=== PATIENT | female | born 1960 | race Caucasian/White ===

== ENCOUNTER → 2017-10-28 09:27 | Outpatient (CLI) | payer OTHER, SELFPAY ==
--- NOTE | 2017-10-28 11:34 | RAD_ITS ---
STUDY: X-RAY - RIGHT FOOT CLINICAL: Female, 57 years old. Trauma, pain across the top of the foot TECHNIQUE: 3 view(s) of the foot. COMPARISON: None. FINDINGS: There is a plantar calcaneal spur. Normal visualized subtalar, talonavicular, calcaneocuboid, tarsal and tarsometatarsal articulations. Normal metatarsi. There is degenerative arthrosis of the metatarsophalangeal joint of the hallux with a hallux valgus deformity. Normal tibial and fibular sesamoid bones. Normal interphalangeal joint of the great toe. Normal phalanges of the great toe. Normal second through fifth metatarsophalangeal joints. Normal interphalangeal joints and phalanges of the lesser toes. The soft tissue structures are unremarkable. RAD/Foot min 3 Views IMPRESSION: No acute bony abnormality. Electronically Signed: Yannick Webb DO at 9:28 EDT Tel , Service support ,
== END ==
PROVIDERS: Family Provider Family Medicine; PCP Family Medicine; Visit Provider Family Medicine
DX: M79.671 Pain in right foot (principal)
CPT/HCPCS: 73630

== ENCOUNTER → 2019-05-19 08:36 | Outpatient (CLI) | payer OTHER, SELFPAY ==
[2019-02-02 16:05] VITALS: BMI 40.0
[2019-05-19 12:30] LABS: Absolute Lymphocyte Count 2.21 X10^3/uL (0.83-4.51); Absolute Neutrophil Count 3.3 X10^3/uL (2.0-7.7); Basophil# 0.02 X10^3/uL; Basophil% 0.3 % (0-1); Eosinophil# 0.15 X10^3/uL; Eosinophils% 2.4 % (0-5); Hematocrit 43.6 % (37-47); Hemoglobin 13.7 g/dL (12.0-15.0); Lymphocyte # 2.21 X10^3/ul (4.0); Lymphocyte % 35.8 % (19-41); Mean Corp Hgb Conc 31.4 g/dL (32-36); Mean Corpuscular Hgb 28.7 pg (27.0-32.0); Mean Corpuscular Volume 91.2 fL (81-99); Mean Platelet Vol. 9.6 fl (6.2-12.0); Monocyte# 0.53 X10^3/uL; Monocyte% 8.6 % (0-10); NRBC Flagged by Analyzer 0 % (0-5); Neutrophil # 3.26 X10^3/uL (2.7-7.7); Neutrophil % 52.7 % (47-70); Platelet Count 324 K/mm3 (150-450); RBC Distribution Width CV 13.1 % (11.6-14.6); RBC Distribution Width SD 43.7 fl (35.1-43.9); Red Blood Count 4.78 M/mm3 (4.2-5.4); White Blood Count 6.2 K/mm3 (4.4-11.0)
[2019-05-19 13:03] LABS: Anion Gap 5 (5-15); BUN 19 mg/dL (7-18); BUN/Creat Ratio 31.3 RATIO (10-20); Calcium,Total 8.8 mg/dL (8.5-10.1); Chloride 107 mmol/L (98-107); Cholesterol 222 mg/dL (200); Creatinine, Serum 0.61 mg/dL (0.55-1.02); EST Glomerular Filtration Rate 108 mL/min (>60); Est Glom Filt Rate - Afr Amer 130 mL/min (>60); Glucose 88 mg/dL (74-106); High Density Lipoprotein 66 mg/dL; Potassium 3.7 mmol/L (3.5-5.1); Sodium Level 140 mmol/L (136-145); Thyroid Stim Hormone (TSH) 1.92 uIU/mL (0.358-3.74); Triglycerides 99 mg/dL; Very Low Density Lipoprotein 20 mg/dL (5-40)
[2019-05-22 10:25] LABS: LDL, Direct 120295 139 mg/dL (0-99)
== END ==
PROVIDERS: Family Provider Family Medicine; PCP Family Medicine; Visit Provider Family Medicine
DX: I49.3 Ventricular premature depolarization (principal); F43.22 Adjustment disorder with anxiety; E78.1 Pure hyperglyceridemia
CPT/HCPCS: 36415; 80048; 80061; 83721; 84443; 85025

== ENCOUNTER → 2019-06-13 11:42 | Outpatient (CLI) | payer OTHER, SELFPAY ==
[2019-02-02 16:05] VITALS: BMI 40.0
[2019-06-13 12:35] LABS: Absolute Lymphocyte Count 2.76 X10^3/uL (0.83-4.51); Absolute Neutrophil Count 3.9 X10^3/uL (2.0-7.7); Basophil# 0.01 X10^3/uL; Basophil% 0.1 % (0-1); Eosinophil# 0.27 X10^3/uL; Eosinophils% 3.5 % (0-5); Hematocrit 41.2 % (37-47); Hemoglobin 13.2 g/dL (12.0-15.0); Lymphocyte # 2.76 X10^3/ul (4.0); Lymphocyte % 36.3 % (19-41); Mean Corpuscular Hgb 28.8 pg (27.0-32.0); Mean Platelet Vol. 9.6 fl (6.2-12.0); Monocyte# 0.63 X10^3/uL; Monocyte% 8.3 % (0-10); NRBC Flagged by Analyzer 0 % (0-5); Neutrophil # 3.92 X10^3/uL (2.7-7.7); Neutrophil % 51.5 % (47-70); Platelet Count 333 K/mm3 (150-450); RBC Distribution Width CV 13.1 % (11.6-14.6); RBC Distribution Width SD 42.8 fl (35.1-43.9); Red Blood Count 4.58 M/mm3 (4.2-5.4); White Blood Count 7.6 K/mm3 (4.4-11.0)
[2019-06-13 13:13] LABS: AST(SGOT) 16 U/L (15-37); Alanine Aminotransfer ALT/SGPT 39 U/L (13-56); Albumin, Serum 3.6 g/dL (3.2-5.0); Alkaline Phosphatase 88 U/L (45-117); Anion Gap 6 (5-15); BUN 19 mg/dL (7-18); BUN/Creat Ratio 34.8 RATIO (10-20); Calcium,Total 8.7 mg/dL (8.5-10.1); Chloride 107 mmol/L (98-107); Creatinine, Serum 0.55 mg/dL (0.55-1.02); EST Glomerular Filtration Rate 122 mL/min (>60); Est Glom Filt Rate - Afr Amer 147 mL/min (>60); Globulin 3.5 g/dL (2.2-4.2); Glucose 82 mg/dL (74-106); Lipase 110 U/L (73-393); Potassium 3.7 mmol/L (3.5-5.1); Protein, Total 7.1 g/dL (6.4-8.2); Sodium Level 138 mmol/L (136-145)
== END ==
PROVIDERS: Family Provider Family Medicine; PCP Family Medicine; Visit Provider Family Medicine
DX: R19.5 Other fecal abnormalities (principal); B34.9 Viral infection, unspecified; R10.13 Epigastric pain
CPT/HCPCS: 36415; 80053; 83690; 85025

== ENCOUNTER → 2019-06-19 16:35 | Outpatient (CLI) | payer OTHER, SELFPAY ==
[2019-02-02 16:05] VITALS: BMI 40.0
--- NOTE | 2019-06-19 16:38 | BI_ITS ---
MAMMOGRAPHY - BILATERAL SCREENING 3-D TOMOSYNTHESIS REASON FOR EXAM: Female, 59 years old. Routine annual screening examination. PERTINENT HISTORY: No significant family history. TECHNIQUE: 2-D mammograms and 3-D Tomosynthesis of the breast (s) were performed. CAD was performed. COMPARISON: None. FINDINGS: The breast composition is heterogeneously dense that can obscure small breast masses. Scattered benign calcifications are seen. No dense spiculated masses or suspicious microcalcifications are identified. No architectural distortion is identified. There is no skin thickening or retraction. Lymph nodes in both axillae. BI/SCREEN MAMM (CAD) W/WU BILAT IMPRESSION: No mammographic signs of malignancy. Routine yearly mammograms recommended. ASSESSMENT CATEGORY: BIRADS Category 2: Benign. A letter regarding these results will be sent to the patient by the facility within 30 days. FOLLOW UP RECOMMENDATION: Yearly follow up mammogram recommended. (A) Approximately 10% of breast cancers are not detected by mammography. A normal mammogram should not delay biopsy of a clinically suspicious abnormality. Electronically Signed: Miguel A Sue MD at 17:52 EST , Service support ,
== END ==
PROVIDERS: Family Provider Family Medicine; PCP Family Medicine; Referring Provider Family Medicine; Visit Provider Family Medicine
DX: Z12.31 Encounter for screening mammogram for malignant neoplasm of breast (principal)
CPT/HCPCS: 77063; 77067

== ENCOUNTER → 2019-09-29 | Outpatient (CLI) | payer OTHER, SELFPAY ==
[2019-09-29 08:34] VITALS: BMI 40.0
--- NOTE | 2019-09-29 08:42 | RAD_ITS ---
HISTORY: BAKERS CYST, PAIN EXAM: Left knee COMPARISON: None FINDINGS: # of images incl. paperwork: 4 Arthritis is present throughout the left knee. There is joint space loss with osteophytes. Is joint space loss is greatest within the medial weightbearing compartment of the knee. Osteophytes are greatest at the patellofemoral portion of the joint. A knee effusion is present. Due to some ill-defined density posterior to the knee I perceived that there is a Burrell's cyst. I estimate the Burrell's cyst at 6.8 x 4.3 cm. No acute fracture RAD/Knee 4 or More Views IMPRESSION: Tricompartment knee osteoarthritis. Probable 6.8 x 4.3 cm Burrell cyst. at 2703 Reported and signed by: Adnerson Aguirre MD Electronically Signed: Anderson Aguirre MD at 5:51 EST Tel , Service support ,
== END | disposition home or self-care (01) ==
LOC: HPRAD 08:42
PROVIDERS: PCP Family Medicine; Referring Provider Orthopaedic Surgery; Visit Provider Orthopaedic Surgery
DX: M25.562 Pain in left knee (principal)
CPT/HCPCS: 73564

== ENCOUNTER → 2021-05-20 11:10 | Outpatient (CLI) | payer OTHER, SELFPAY ==
--- NOTE | 2021-05-20 11:15 | RAD_ITS ---
STUDY: X-RAY - RIGHT FOOT CLINICAL: Medial right foot pain, no specific injury. TECHNIQUE: 3 view(s) of the foot. COMPARISON: Radiographs 10/28/2017. FINDINGS: There is a plantar calcaneal enthesophyte. Otherwise, unremarkable talus, calcaneus, and tarsal bones. Normal visualized subtalar, talonavicular, calcaneocuboid, tarsal and tarsometatarsal articulations. Normal metatarsi. There is joint space narrowing of the metatarsophalangeal joint of the great toe and cystic change of the medial aspect of the first metatarsal head. There is hallux valgus deformity. Normal tibial and fibular sesamoid bones. Normal interphalangeal joint of the great toe. Normal phalanges of the great toe. Normal second through fifth metatarsophalangeal joints. Normal interphalangeal joints and phalanges of the lesser toes. The soft tissue structures are unremarkable. RAD/Foot min 3 Views IMPRESSION: Arthrosis of the first metatarsophalangeal joint. Hallux valgus deformity. Plantar calcaneal enthesophyte. Electronically Signed: Mark Lerner MD at 13:52 EDT Tel , Service support ,
== END ==
PROVIDERS: PCP Family Medicine; Referring Provider Podiatrist; Visit Provider Podiatrist
DX: M19.071 Primary osteoarthritis, right ankle and foot (principal)
CPT/HCPCS: 73630

== ENCOUNTER → 2021-06-03 16:13 | Outpatient (CLI) | payer OTHER, SELFPAY ==
--- NOTE | 2021-06-03 16:15 | BI_ITS ---
MAMMOGRAPHY - BILATERAL SCREENING REASON FOR EXAM: Female, 61 years old. Routine annual screening examination. PERTINENT HISTORY: Non-contributory. TECHNIQUE: Digital bilateral breast wu (3D mammographic acquisition) in the CC and MLO projections. 2-D mediolateral oblique (MLO) and craniocaudad (CC) views of both breasts were obtained. CAD: Full Field Digital Mammography with Computer Added Detection was performed. COMPARISON: Comparison is made with prior study dated 06/19/2019. FINDINGS: Breast Composition: The breasts are heterogeneously dense, which may obscure small masses. There are no dominant masses or suspicious calcifications. No other significant abnormalities are identified. There has been no significant change since the prior study. BI/SCRN MAMM (CAD)W/WU BILAT IMPRESSION: Stable bilateral screening mammogram. Yearly follow-up mammogram recommended. (A) ASSESSMENT CATEGORY: BIRADS Category 1: Negative. A letter regarding these results will be sent to the patient by the facility within 30 days. Approximately 10% of breast cancers are not detected by mammography. A normal mammogram should not delay biopsy of a clinically suspicious abnormality. [id number] Electronically Signed: Cade Wooten MD at 8:24 EST , Service support ,
== END ==
PROVIDERS: PCP Family Medicine; Referring Provider Advanced Practice Midwife; Visit Provider Advanced Practice Midwife
DX: Z12.31 Encounter for screening mammogram for malignant neoplasm of breast (principal)
CPT/HCPCS: 77063; 77067

== ENCOUNTER 2021-06-28 14:24 | Outpatient (CLI) | payer OTHER, SELFPAY ==
[2021-06-28 14:53] VITALS: BP 141/78; PULSE 95; RESP 16; TEMP 36.8; O2SAT 97; BMI 39.1
[2021-06-28 15:44] VITALS: BP 112/73; PULSE 92; RESP 16; TEMP 37; O2SAT 98
[2021-06-28 16:34] VITALS: BP 128/66; RESP 16; TEMP 37.6; O2SAT 98
== END 2021-06-28 16:45 | disposition home or self-care (01) ==
LOC: MS3OUT 14:29 → MS3 14:29
PROVIDERS: PCP Family Medicine; Referring Provider Nurse Practitioner Acute Care; Visit Provider Nurse Practitioner Acute Care
DX: Z23 Encounter for immunization (principal); U07.1 COVID-19
CPT/HCPCS: J7050; M0245; Q0245

== ENCOUNTER 2021-11-03 16:13 | Emergency (ER) | payer OTHER, SELFPAY ==
[2021-11-03 16:13] VITALS: BP 143/100; PULSE 106; RESP 18; TEMP 36.1; O2SAT 96; BMI 41.9
--- NOTE | 2021-11-03 16:47 | ED.VIS.BACK ---
HPI History of Present Illness Chief Complaint: Back Informant: patient Onset/Context/Timing Onset: Days (10) Context: Gradual Onset Timing: Intermittent Quality: Sharp Location: Lumbar, Buttock and Right Leg Worsened by: improves with Ambulation Relieved by: Nothing Associated Symptoms Associated Symptoms: Numbness, Tingling and Radiation to Right Leg; Negative for Radiation to Left Leg, Fever, Abdominal Pain, Dysuria, Unable to Ambulate, Unable to Transfer, Urinary Retention, Urinary Incontinence, Constipation and Fecal Incontinence Narrative Narrative: Patient presents with low back pain that has been getting worse over the past 10 days. Patient denies any injury. Patient states her pain is worse with standing and ambulation. Patient describes her pain as sharp. Patient pain radiates down her right lower extremity. Patient admits to some numbness and tingling in her right lower extremity. Patient states nothing seems to help her pain. Patient denies any bowel or bladder changes. Patient denies any saddle anesthesia. [facility] Medical History Anxiety Degenerative disc disease, lumbar Depression Fatigue GERD (gastroesophageal reflux disease) Near syncope Obesity Osteoarthritis Premature ventricular beat Supraventricular tachycardia UTI (urinary tract infection) Home Medications naproxen sodium 220 mg capsule 220 mg PO Q12H 07/21/17 [History Last Taken Unknown] paroxetine HCl 20 mg tablet 20 mg PO DAILY 02/02/19 [History Last Taken Unknown] metoprolol succinate 25 mg tablet,extended release 24 hr 25 mg PO QDAY #90 tab 08/09/19 [Rx Last Taken Unknown] omeprazole 20 mg capsule,delayed release 20 mg PO DAILY 03/12/21 [History Last Taken Unknown] hydrocodone-acetaminophen 1 tab PO Q6H PRN PRN 3 Days #10 tablet 11/03/21 [Rx Last Taken Unknown] Allergy/AdvReac Type Severity Reaction Status Date / Time No Known Allergies Allergy Verified 11/03/21 16:15 Family History Father CAD (coronary artery disease) ischemic cardiomyopathy Surgical History H/O excision of ganglion cyst History of History of dilatation and curettage History of total right knee replacement (~06/2011) Social History Smoking Status: Former smoker alcohol intake: current alcohol intake frequency: holidays/special occasions only ROS ROS ED Constitutional Constitutional ED: Denies chills or fever(s) Eyes Eyes: Denies blurry vision or change in vision ENT ENT ED: Denies rhinorrhea or sore throat Cardiovascular Cardiovascular: Denies chest pain or palpitations Respiratory/Chest Respiratory/Chest: Denies cough or dyspnea Gastrointestinal Gastrointestinal: Reports nausea; Denies vomiting Genitourinary Genitourinary ED: Denies dysuria or hematuria Musculoskeletal Musculoskeletal: Reports back pain; Denies neck pain Integumentary Denies abscess or rash Neurologic Neurologic: Denies headache(s) or weakness Allergic/Immunologic Allergic/Immunologic ED: Denies mouth swelling or urticaria EXAM Physical Exam Const Vital Signs: 11/03/21 16:13 11/03/21 18:22 Temperature 97 F L Temperature Source Temporal Pulse Rate 106 H 71 Respiratory Rate 18 16 Blood Pressure 143/100 H 138/67 H Blood Pressure Mean 114 90 Pulse Ox 96 94 Oxygen Delivery Method Room Air Room Air Positive well nourished and well developed General Appearance ED: well developed Neck supple and no JVD GI Palpation: soft Back/Spine Back/Spine Narrative: There is tenderness to palpation over the lower lumbar spine and lumbosacral junction. There is no edema or ecchymosis. There is no bony crepitance or step-off. There is good range of motion. There is no tenderness over the upper lumbar spine or thoracic spine. Extremity normal to inspection General Extremety ED: Negative for edema or tenderness General Extremity: Negative for edema Neuro oriented x3, CN's II-XII intact bilaterally and no sensory deficits noted Sensorium / Orientation: alert Motor Exam: strength 5/5 throughout Deep Tendon Reflexes: Rt Patellar (L4): 1+, Lt Patellar (L4): 1+, Rt Ankle (S1): 1+ and Lt Ankle (S1): 1+ Deep Tendon Reflexes Back: Rt Patellar (L4): 1+, Lt Patellar (L4): 1+, Rt Ankle (S1): 1+ and Lt Ankle (S1): 1+ Psych mental status grossly normal Skin no rashes or lesions noted MDM MDM MDM Narrative Medical decision making narrative: X-rays of the lumbar spine were obtained. There are 3 views. On my interpretation, there are some degenerative changes noted. There is a grade 1 spondylolisthesis of L4 on L5. There is some disc space narrowing of L3-L4, L4-L5, and L2-L3. There is no acute fracture. Radiologist also interpreted the x-rays and agrees. Patient was given a dose of [place] here. Patient was given a prescription for a short course of [place]. Patient was instructed use ice to the area. Patient was instructed to follow-up with her primary care physician in 5 to 7 days. Patient understood and was agreeable with the plan. All questions were answered. Radiography X-Ray: LS SPine, Read by ED Physician, Read by Radiologist, No Fracture, DJD, Spurring, Osteophytes and Spondylolisthesis Diagnostic Testing: Clinical Impression(s) from Imaging Studies Lumbar Spine X-Ray 11/03/21 17:05 IMPRESSION: 1. No vertebral body fractures. 2. Presence of a 9 mm forward subluxation of L4 with respect to L5. 3. Marked narrowing of the L3-4 and L4-5 intervertebral disc spaces and mild narrowing of the L2-3 intervertebral disc space. 4. Moderate anterior osteophytic degenerative changes of the entire lumbar spine. 5. No evidence of other significant abnormalities. Electronically Signed: Jameson Gustafson MD at 17:51 EDT , Discharge Plan Triage Chief Complaint: Back ED Provider: Bryant Pinto Dx/Rx/DC Orders Clinical Impression: Acute lumbosacral myofascial strain, Radiculopathy Instructions: ED Back Sprain/Strain, ED Back and Neck Pain, General Prescriptions: New hydrocodone-acetaminophen [hydrocodone-acetaminophen] 1 TABLET tablet 1 tab PO Q6H PRN PRN (Reason: Pain) 3 Days Qty: 10 RF: 0 No Action naproxen sodium [Aleve] 220 mg capsule 220 mg PO Q12H RF: 0 paroxetine HCl 20 mg tablet 20 mg PO DAILY RF: 0 omeprazole 20 mg capsule,delayed release(DR/EC) 20 mg PO DAILY RF: 0 metoprolol succinate [Toprol XL] 25 mg tablet extended release 24 hr 25 mg PO QDAY Qty: 90 RF: 3 Primary Care Provider: Josias Mckinney Referrals: Josias Mckinney MD [Primary Care Provider] - 5-7 Days Disposition Disposition: Home, Self Care
[2021-11-03] MEDS: HYDROcodone Bitartrate/Apap 5/325 Tablet PO (17:01)
--- NOTE | 2021-11-03 17:05 | RAD_ITS ---
STUDY: LUMBOSACRAL SPINE X-RAY SERIES--3 VIEWS OF 1712 HOURS ON 11/03/2021 REASON FOR EXAM: 61-year-old female with injury and pain of the lumbar spine. TECHNIQUE: 3 view(s) of the lumbar spine were obtained. COMPARISON: None FINDINGS: No vertebral body fractures. 9 mm forward subluxation of L4 with respect to L5. Marked narrowing of the L3-4 and L4-5 intervertebral disc spaces. Mild narrowing of the L2-3 intervertebral disc space. Moderate anterior osteophytic degenerative changes of the entire lumbar spine. Intact pedicles, processes and facets. Normal sacrum and coccyx. RAD/Lumbar Spine 2 or 3 Views IMPRESSION: 1. No vertebral body fractures. 2. Presence of a 9 mm forward subluxation of L4 with respect to L5. 3. Marked narrowing of the L3-4 and L4-5 intervertebral disc spaces and mild narrowing of the L2-3 intervertebral disc space. 4. Moderate anterior osteophytic degenerative changes of the entire lumbar spine. 5. No evidence of other significant abnormalities. Electronically Signed: Jameson Gustafson MD at 17:51 EDT ,
[2021-11-03 18:22] VITALS: BP 138/67; PULSE 71; RESP 16; O2SAT 94
== END 2021-11-03 18:51 | disposition home or self-care (01) ==
PROVIDERS: Emergency Provider Emergency Medicine; PCP Family Medicine; Visit Provider Emergency Medicine
DX: S39.012A Strain of muscle, fascia and tendon of lower back, initial encounter (principal); F41.9 Anxiety disorder, unspecified; F32.A Depression, unspecified; K21.9 Gastro-esophageal reflux disease without esophagitis; M51.36 Other intervertebral disc degeneration, lumbar region; M43.16 Spondylolisthesis, lumbar region; E66.9 Obesity, unspecified; Z79.899 Other long term (current) drug therapy; Z87.891 Personal history of nicotine dependence
CPT/HCPCS: 72100; 99283

== ENCOUNTER 2021-11-08 13:19 | Emergency (ER) | payer OTHER, SELFPAY ==
[2021-11-08 13:20] VITALS: BP 193/99; PULSE 111; RESP 20; TEMP 37.1; O2SAT 93; BMI 41.7
[2021-11-08 13:31] VITALS: BP 161/82; PULSE 99; RESP 18; O2SAT 97
--- NOTE | 2021-11-08 13:47 | EDS_ITS ---
HPI History of Present Illness Chief Complaint: Back Informant: patient Narrative Narrative: 61-year-old female presenting to the emergency department chief complaint of back pain. Patient was seen in the emergency department 5 days ago. She is awaiting a call from a spine surgeon at [facility] in [place]. Unfortunately she is out of her pain medication and she tried to get to her doctor's office but because of the they were closed. Patient notes that she has had pain for approximately 2 weeks. She denies any radicular symptoms. She saw a chiropractor yesterday. No fevers recent back injections or radicular symptoms. No bowel or bladder dysfunction. She is currently wearing a TENS unit [facility] Medical History Anxiety Degenerative disc disease, lumbar Depression Fatigue GERD (gastroesophageal reflux disease) Near syncope Obesity Osteoarthritis Premature ventricular beat Supraventricular tachycardia UTI (urinary tract infection) Home Medications naproxen sodium 220 mg capsule 220 mg PO Q12H 07/21/17 [History Last Taken Unknown] paroxetine HCl 20 mg tablet 20 mg PO DAILY 02/02/19 [History Last Taken Unknown] metoprolol succinate 25 mg tablet,extended release 24 hr 25 mg PO QDAY #90 tab 08/09/19 [Rx Last Taken Unknown] omeprazole 20 mg capsule,delayed release 20 mg PO DAILY 03/12/21 [History Last Taken Unknown] hydrocodone-acetaminophen 1 tab PO Q6H PRN PRN 3 Days #10 tablet 11/03/21 [Rx Last Taken Unknown] diazepam 5 mg PO Q8 PRN #10 tab 11/08/21 [Rx Last Taken Unknown] hydrocodone-acetaminophen 1 tab PO Q6H PRN PRN 3 Days #12 tablet 11/08/21 [Rx Last Taken Unknown] prednisone 60 mg PO DAILY #15 tablet 11/08/21 [Rx Last Taken Unknown] Allergy/AdvReac Type Severity Reaction Status Date / Time No Known Allergies Allergy Verified 11/08/21 13:20 Family History Father CAD (coronary artery disease) ischemic cardiomyopathy Surgical History H/O excision of ganglion cyst History of History of dilatation and curettage History of total right knee replacement (~06/2011) Social History Smoking Status: Former smoker alcohol intake: current alcohol intake frequency: holidays/special occasions only ROS ROS ED Constitutional Constitutional ED: Denies chills, fever(s) or weight loss Eyes Eyes: Denies change in vision or diplopia ENT ENT ED: Denies ear pain, rhinorrhea or sore throat Cardiovascular Cardiovascular: Denies chest pain, orthopnea, palpitations or racing heartbeat Respiratory/Chest Respiratory/Chest: Denies cough, dyspnea or orthopnea Gastrointestinal Gastrointestinal: Denies abdominal pain, diarrhea, nausea or vomiting Genitourinary Genitourinary ED: Denies dysuria, hematuria or urinary frequency Musculoskeletal Musculoskeletal: Reports back pain; Denies arthralgias or myalgias Integumentary Denies abscess or rash Neurologic Neurologic: Denies headache(s) or weakness Psychiatric Psychiatric: Denies anxiety, depression, suicidal ideation or suicidal thoughts Endocrine Endocrinology: Denies polydipsia, polyphagia or polyuria Allergic/Immunologic Allergic/Immunologic ED: Denies mouth swelling, tongue swelling or urticaria EXAM Physical Exam Const Vital Signs: 11/08/21 13:20 11/08/21 13:31 Temperature 98.8 F Temperature Source Oral Pulse Rate 111 H 99 Respiratory Rate 20 H 18 Blood Pressure 193/99 H 161/82 H Blood Pressure Mean 130 108 Pulse Ox 93 97 Oxygen Delivery Method Room Air Room Air Positive well nourished, well developed and obese General Appearance ED: well developed Nutritional Appearance: obese HEENT Reports normocephalic, head/scalp atraumatic, TM's clear and moist mucous membranes Negative for trauma Tympanic Membrane ED: Yes TM's clear Eyes PERRL and EOMs intact bilaterally Neck no lymphadenopathy, supple and no JVD Resp normal respiratory effort and clear to auscultation bilaterally Cardio regular rate, regular rhythm and no murmurs GI normal to inspection, nondistended, normoactive bowel sounds and non-tender Palpation: soft Back/Spine normal ROM Back/Spine Narrative: Tender palpation of bilateral SI joints. There are no overlying tissue texture changes to suggest infectious etiology. Extremity normal to inspection General Extremety ED: Negative for edema General Extremity: Negative for edema Neuro oriented x3 and CN's II-XII intact bilaterally Sensorium / Orientation: alert Motor Exam: strength 5/5 throughout Psych mental status grossly normal Mood & Affect: Negative for depressed or tearful Skin no rashes or lesions noted and no wounds MDM MDM MDM Narrative Medical decision making narrative: I will write for the patient to have [place] Valium and prednisone. She is not to take the [place] and the Valium together and she notes understanding. Return if worsening or concerns Discharge Plan Triage Chief Complaint: Back ED Provider: Antony Lawton Dx/Rx/DC Orders Clinical Impression: Acute lumbosacral myofascial strain Instructions: ED Back Spasm, No Trauma Prescriptions: New hydrocodone-acetaminophen [hydrocodone-acetaminophen] 1 TABLET tablet 1 tab PO Q6H PRN PRN (Reason: Pain) 3 Days Qty: 12 RF: 0 prednisone 20 MG tablet 60 mg PO DAILY Qty: 15 RF: 0 diazepam [diazepam] 5 MG tablet 5 mg PO Q8 PRN (Reason: Muscle Spasm) Qty: 10 RF: 0 No Action naproxen sodium [Aleve] 220 mg capsule 220 mg PO Q12H RF: 0 paroxetine HCl 20 mg tablet 20 mg PO DAILY RF: 0 omeprazole 20 mg capsule,delayed release(DR/EC) 20 mg PO DAILY RF: 0 hydrocodone-acetaminophen [hydrocodone-acetaminophen] 1 TABLET tablet 1 tab PO Q6H PRN PRN (Reason: Pain) 3 Days Qty: 10 RF: 0 metoprolol succinate [Toprol XL] 25 mg tablet extended release 24 hr 25 mg PO QDAY Qty: 90 RF: 3 Primary Care Provider: Josias Mckinney Referrals: Josias Mckinney MD [Primary Care Provider] - As Needed Disposition Disposition: Home, Self Care
== END 2021-11-08 14:05 | disposition home or self-care (01) ==
LOC: ED 13:55
PROVIDERS: Emergency Provider Emergency Medicine; PCP Family Medicine; Visit Provider Emergency Medicine
DX: S39.012A Strain of muscle, fascia and tendon of lower back, initial encounter (principal); Z68.41 Body mass index [BMI] 40.0-44.9, adult; Z87.891 Personal history of nicotine dependence; M51.36 Other intervertebral disc degeneration, lumbar region; X58.XXXA Exposure to other specified factors, initial encounter; Y93.9 Activity, unspecified; Y99.9 Unspecified external cause status; Y92.9 Unspecified place or not applicable; M19.90 Unspecified osteoarthritis, unspecified site; K21.9 Gastro-esophageal reflux disease without esophagitis; Z79.899 Other long term (current) drug therapy; E66.9 Obesity, unspecified
CPT/HCPCS: 99282

== ENCOUNTER → 2021-12-12 | Outpatient (CLI) | payer OTHER, SELFPAY | END | disposition home or self-care (01) | PROVIDERS: PCP Family Medicine; Visit Provider Family Medicine | DX: R39.15 Urgency of urination (principal) | CPT/HCPCS: 87086; 87088; 87186 ==

== ENCOUNTER 2022-03-16 17:00 | Outpatient (RCR) | payer OTHER, SELFPAY ==
--- NOTE | 2021-12-29 11:03 | HP.PTEVAL ---
Patient's Visit Information MIK WHITE is a 61 year old F referred to Physical Therapy by RONALD Brenner with a diagnosis of Laminectomy L3,L4,L5; fusion L4-L5. Date of Evaluation: 12/29/21 Physical Therapist: Joe Pepe DPT - Visit Plan Frequency: 2-3x /Week Duration: 4-6 Weeks Plan: Start with neutral spine core stability exercises. Wean from brace as tolerated. In 3 weeks start to ease into ROM as tolerated. - Subjective Pt. is here today for her initial evaluation with diagnosis of Laminectomy, L3, L4, L5; transforaminal interbody fusion from the left L4-L5. DOS: 11/27/21. Pt. reports having back pain for a few months and was doing chiro, pain meds, massage and having no relief. She started to develop cauda equina syndrome and ultimately did surgery. She reports feeling much better. She arrives using small quad can and wearing her abdominal brace. She is back to walking and driving, but not back to work. She is to follow up with physician in January. Pt. denies N/T in either LE. No pain in saddle region, no changes in B/B. Pt. is sleeping well. She is back to walking at home and lightly in community. 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 Pt. is hopeful to increase her tolerated all daily activities and progress back to work. - Pain lumbar spine Pain Intensity (Out of 10): 1 Pain Intensity Range: 0, 3 - Objective POSTURE: pt. has decent posture in stance, slight FH and rounded shoulders. Pt. has normal lumbar lordosis. PALPATION: Pt. has no pain with palpation of lumbar spine. Pt. has normal healing incision, No signs of infection. NEURO: Pt. has normal sensation throughout BLEs. Pt. has normal bilateral Achilles and Patellar DTR. ROM: Lumbar spine: flexion mod loss, exten mod loss, SB mod loss bilat, rotation mod loss bilat. Did not force ROM, just wanted to see ROM that she tolerated. pt. has normal B hip ROM. Tight HS and tight hip flexors bilat. MMT: RLE: ankle 5/5 throughout; knee: ext 5-/5, flexon 5-/5; hip 4/5 throughout. LLE: RLE: ankle 5/5 throughout; knee: ext 5-/5, flexon 5-/5; hip 4/5 throughout. GAIT: Pt. has decent gait pattern with quad cane, but does not use much. No pain noted. Slight lateral hip translation. - Balance/Special Test Scores Oswestry Low Back Score: 15 - Goals Goal 1:: LTG: Pt. to be I with HEP. Goal Time Frame: 4-6 Weeks Goal 2:: STG: Pt. to sleep throughout the night without increase in symptoms Goal Time Frame: 2-4 Weeks Goal 3:: STG: Pt. to wean from brace without increase in symptoms. Goal Time Frame: 2-4 Weeks Goal 4:: LTG: Pt. to have increased core strength to fair in order to reduce stress to lumbar spine. Goal Time Frame: 4-6 Weeks Goal 5:: LTG: Pt. to walk unlimited distances without increase in lumbar spine pain. Goal Time Frame: 4-6 Weeks - Rehabilitation Potential Physical Therapy Diagnosis: Pt. has signs and symptoms consistent with Laminectomy L3,L4,L5; fusion L4-L5. Pt. has subsequent hypomobility, core weakness and difficulty with ADLs. Pt. would benefit from PT to address the above limitations progressing back to all work and recreational activities without limitations. Rehabilitation Potential: Excellent - Anticipated Interventions Patient/Client Instruction: Educate patient on: Condition, Plan of Care, Risk Factors, Benefits of Fitness Program For the Purpose of:: To facilitate caregiver knowledge, To improve self management, To prevent re-injury, To improve ability to perform tasks related to life management, To improve tolerance to ADL's Therapeutic Exercise to Include: Strength training, Power training, Endurance training, Balance training, Body mechanics, Postural training, Flexibilty training, Gait and locomotor training, Passive ROM, Active ROM, Dynamic Lumbar Stabilization For the Purpose of:: To decrease pain, To decrease swelling/inflammation, To increase ROM, To improve nutrient delivery to tissue, To increase oxygenation perfusion, To improve health of tissue, To decrease soft tissue restriction, To increase flexibility/ROM Thank you for the opportunity to evaluate your patient. For Medicare and Medicare HMO plans, please review the plan of care and approve it. It will need to be FAXED BACK to us at [phone] for Medicare purposes. For Medicare only, by signing this I certify the plan of care. Please let me know if there are questions or concerns regarding this plan of care. Physician Signature: Date:
--- NOTE | 2022-02-13 06:20 | HP.PTREVAL ---
Linda Hathaway, LY-C, It has been my pleasure to treat MIK WHITE over the last 17 visits for Laminectomy L3,L4,L5; fusion L4-L5 (November 28). Please see the progress note below for an update on the physical therapy plan of care! Subjective: Pt. is overall doing well. She reports brianna 70% better overall. She denies pain. She did start back to work with good tolerance thus far. Objective/Function: ROM: LUMBAR SPINE: flexion min loss NE, SB min loss bilat NE, rotation min loss bilat nE. MMT: Pt. had good strength throughout her core 4/5, BLEs 4+/5 throughout without increase in symptoms. GAIT: She ambulates well, but does have increased lateral hip sway, but is otherwise doing well. STAIRS: reciprocal pattern, but does bother L knee especially with descending. Overall doing well. I would lik her to continue with core stability exercises and progressing to functional strengthening as she has a fairly active job and I want to wean her back into this. Plan Plan: COnt. with PT x2 per week for 3-4 weeks. Progress functional LE and core strengthening to allow for increased stability/tolerance to work activities. Balance/Gait/Functional tests - Balance/Special Test Scores Oswestry Low Back Score: 8 Goals Goal 1:: LTG: Pt. to be I with HEP. Goal Time Frame: 4-6 Weeks Goal Progress: Progressing Goal 2:: STG: Pt. to sleep throughout the night without increase in symptoms Goal Time Frame: 2-4 Weeks Goal Progress: Goal Met Goal 3:: STG: Pt. to wean from brace without increase in symptoms. Goal Time Frame: 2-4 Weeks Goal Progress: Goal Met Goal 4:: LTG: Pt. to have increased core strength to fair in order to reduce stress to lumbar spine. Goal Time Frame: 4-6 Weeks Goal Progress: Progressing Goal 5:: LTG: Pt. to walk unlimited distances without increase in lumbar spine pain. Goal Time Frame: 4-6 Weeks Goal Progress: Progressing Anticipated Interventions Patient/Client Instruction: Educate patient on: Condition, Plan of Care, Risk Factors, Benefits of Fitness Program For the Purpose of:: To facilitate caregiver knowledge, To improve self management, To prevent re-injury, To improve ability to perform tasks related to life management, To improve tolerance to ADL's Therapeutic Exercise to Include: Strength training, Power training, Endurance training, Balance training, Body mechanics, Postural training, Flexibilty training, Gait and locomotor training, Passive ROM, Active ROM, Dynamic Lumbar Stabilization For the Purpose of:: To decrease pain, To decrease swelling/inflammation, To increase ROM, To improve nutrient delivery to tissue, To increase oxygenation perfusion, To improve health of tissue, To decrease soft tissue restriction, To increase flexibility/ROM Please do not hesitate to contact me at [phone] by phone or if you have questions or concerns regarding this new plan of care! Sincerely, Joe Pepe DPT
--- NOTE | 2022-03-18 10:06 | HP.PTDCSUM_ITS ---
It has been my pleasure to treat MIK WHITE referred by RONALD Brenner, with the diagnosis of Laminectomy L3,L4,L5; fusion L4-L5 (November 28) for a total of 23 visit(s). Discharge Date: 03/16/22 Please see the following information for a summary of their discharge status. Subjective: Pt. reports being 95% better overall. She reports no issues with her back. She is tolerating all work activities well without issues. Pt. pleased. lumbar spine Pain Intensity (Out of 10): 0 % Improvement: 95 Objective/Function: ROM: Lumbar spine: flexion nil/min loss NE, ext nil/min loss NE, rotation nil loss NE, SB nil loss NE. NO pain noted with lumbar ROM. MMT: 5/5 throughout BLEs, core fair. No pain with resting. Pt. has normal sensation in BLEs, normal DTR of BLEs. GAIT: pt. has normal gait pattern without increase in symptoms. Slight lateral sway with hips during gait. STAIRS: normal, but does have some underlying L knee pain, known OA at this joint. Uses 1 HR. Normal squat and body mechanics noted with lifting. We did discuss her body mechics with work related activities. Goal 1:: LTG: Pt. to be I with HEP. Goal Progress: Goal Met Goal 2:: STG: Pt. to sleep throughout the night without increase in symptoms Goal Progress: Goal Met Goal 3:: STG: Pt. to wean from brace without increase in symptoms. Goal Progress: Goal Met Goal 4:: LTG: Pt. to have increased core strength to fair in order to reduce stress to lumbar spine. Goal Progress: Goal Met Goal 5:: LTG: Pt. to walk unlimited distances without increase in lumbar spine pain. Goal Progress: Goal Met Plan: Pt. will be DC to HEP at this point in time. Discharge Comments: Pt. did very well with PT with focus on core stability, progressing to light lumbar ROM. He is back to all activities without limi tations. She is doing well and and able to demonstrate good body mechanics. She will be DC to HEp at this point in time. If there are questions or concerns regarding this patient's physical therapy, radha amin feel free to call me at [phone]. Thank you for the referral of this patient. Sincerely, Joe L Sipos, DPT Balance/Gait/Functional tests - Balance/Special Test Scores Oswestry Low Back Score: 0
== END 2022-03-16 19:00 | disposition home or self-care (01) ==
LOC: PT 17:00
PROVIDERS: PCP Family Medicine; Referring Provider Nurse Practitioner Acute Care; Visit Provider Nurse Practitioner Acute Care
DX: Z98.1 Arthrodesis status (principal)
CPT/HCPCS: 97110; 97161; 97164

== ENCOUNTER → 2022-06-09 | Outpatient (CLI) | payer OTHER, SELFPAY ==
--- NOTE | 2022-06-09 07:33 | BI_ITS ---
MAMMOGRAPHY - BILATERAL SCREENING REASON FOR EXAM: Female, 62 years old. Routine annual screening examination. PERTINENT HISTORY: Non-contributory. TECHNIQUE: Digital bilateral breast wu (3D mammographic acquisition) in the CC and MLO projections. 2-D mediolateral oblique (MLO) and craniocaudad (CC) views of both breasts were obtained. CAD: Full Field Digital Mammography with Computer Added Detection was performed. COMPARISON: Comparison is made with prior study 06/03/2021 and 06/19/2019. FINDINGS: Breast Composition: The breasts are heterogeneously dense, which may obscure small masses. There are no dominant masses or suspicious calcifications. Stable small benign-appearing bilateral axillary lymph nodes. No other significant abnormalities are identified. There has been no significant change since the prior study. BI/SCRN MAMM (CAD)W/WU BILAT IMPRESSION: Stable bilateral screening mammogram. Yearly follow-up mammogram recommended. (A) ASSESSMENT CATEGORY: BIRADS Category 2: Benign. A letter regarding these results will be sent to the patient by the facility within 30 days. Approximately 10% of breast cancers are not detected by mammography. A normal mammogram should not delay biopsy of a clinically suspicious abnormality. [id number] Electronically Signed: Cade Wooten MD at 9:12 EST ,
== END | disposition home or self-care (01) ==
LOC: OPBI 07:32
PROVIDERS: PCP Family Medicine; Visit Provider Family Medicine
DX: Z12.31 Encounter for screening mammogram for malignant neoplasm of breast (principal)
CPT/HCPCS: 77063; 77067

== ENCOUNTER 2022-09-21 09:20 | Emergency (ER) | payer OTHER, SELFPAY ==
[2022-09-21 09:21] VITALS: BP 135/72; PULSE 84; RESP 18; TEMP 36.6; O2SAT 98; BMI 41.5
--- NOTE | 2022-09-21 09:52 | CT_ITS ---
STUDY: CT CHEST WITHOUT CONTRAST REASON FOR EXAM: Female, 62 years old. Right sided chest trauma ?? Rib fractures RADIATION DOSAGE (If Supplied By Facility): CTDIvol = ( 27.25 ) mGy, DLP = ( 1229.13 ) mGycm TECHNIQUE: Transaxial imaging was performed without the administration of intravenous contrast material. Multiplanar coronal and sagittal images were reformatted. Individualized dose optimization techniques were used for this CT. COMPARISON: No relevant priors. FINDINGS: CHEST Mild degree of bibasilar atelectasis is more prominent on the right side. There is no demonstrated pleural abnormality. There are calcifications of the coronary arteries. Normal mediastinum. Normal hilar regions. Normal unenhanced pulmonary arteries. There is atherosclerotic calcification of the aortic arch with tortuosity and elongation of the aortic arch and descending thoracic aorta. There are multi-level degenerative changes of the thoracic spine. There is no demonstrated abnormality of the visualized upper abdomen. CT/Chest without Contrast IMPRESSION: Mild degree of dependent bibasilar atelectasis slightly worse on the right side. No rib fractures seen. Electronically Signed: Cade Wooten MD at 10:47 EST ,
--- NOTE | 2022-09-21 09:53 | EDS_ITS ---
HPI History of Present Illness Chief Complaint: Chest Other Detail of Chief Complaint: Right rib cage pain after a fall Informant: patient Onset/Context/Timing Onset: Days Mechanism/Context: Blunt Injury, Fall and Trip Quality of Pain: Sharp and Stabbing Current Severity: Mild Maximum Severity: Moderate Associated Symptoms Associated Symptoms: Negative for Parasthesias, Weakness, Loss of function, Inability to ambulate, Loss of consciousness or Amnesia Narrative Narrative: 62-year-old female was on a cruise she got up in the middle the night tripped fell into a dresser injuring her right rib cage. Since that time she developed bruising. Pain is increased with movement and deep breathing. Denies shortness of breath. No hemoptysis. No other injuries. No head injury. No LOC. Prior similar symptoms: No Recent Illness/Hospitalization: No PFSH PFSH Medical History Anxiety Degenerative disc disease, lumbar Depression Fatigue GERD (gastroesophageal reflux disease) Near syncope Obesity Osteoarthritis Premature ventricular beat Supraventricular tachycardia UTI (urinary tract infection) Home Medications naproxen sodium 220 mg capsule (Aleve) 220 mg PO Q12H 07/21/17 [History Last Taken Unknown] paroxetine HCl 20 mg tablet 20 mg PO DAILY 02/02/19 [History Last Taken Unknown] metoprolol succinate 25 mg tablet,extended release 24 hr (Toprol XL) 25 mg PO QDAY #90 tabs 08/09/19 [Rx Last Taken Unknown] omeprazole 20 mg capsule,delayed release 20 mg PO DAILY 03/12/21 [History Last Taken Unknown] Allergy/AdvReac Type Severity Reaction Status Date / Time No Known Allergies Allergy Verified 09/21/22 09:21 Family History Father CAD (coronary artery disease) ischemic cardiomyopathy Surgical History H/O excision of ganglion cyst History of History of dilatation and curettage History of lumbar spinal fusion History of total right knee replacement (~06/2011) Social History Smoking Status: Former smoker alcohol intake: current alcohol intake frequency: holidays/special occasions only ROS ROS ED Review of Systems ROS Unobtainable: Denies due to encephalopathy Constitutional Constitutional ED: Denies chills or fever(s) Eyes Eyes: Denies blurry vision ENT ENT ED: Denies ear pain, rhinorrhea or sore throat Cardiovascular Cardiovascular: Reports chest pain; Denies palpitations or racing heartbeat Respiratory/Chest Respiratory/Chest: Denies cough, dyspnea or dyspnea on exertion Gastrointestinal Gastrointestinal: Denies abdominal pain Genitourinary Genitourinary ED: Denies dysuria or hematuria Musculoskeletal Musculoskeletal: Denies arthralgias, back pain, myalgias or neck pain Integumentary Denies abscess or Abrasions Neurologic Neurologic: Denies headache(s) Psychiatric Psychiatric: Denies anxiety Endocrine Endocrinology: Denies cold intolerance Hematologic/Lymphatic Hematologic/Lymphatic: Denies easy bleeding Allergic/Immunologic Allergic/Immunologic ED: Denies mouth swelling or tongue swelling EXAM Physical Exam Narrative Exam Narrative: 2-year-old female. Vital signs stable afebrile. Pulse ox 90% on room air no hypoxia. H EENT exam unremarkable atraumatic. Given primary light. C-spine nontender. Trachea midline. Back nontender. Spine nontender. Lungs clear to auscultation bilaterally. Heart regular rhythm rate about 80 no murmur. Chest wall right lateral rib cage tenderness with bruising along the area of her bra on the right side. No crepitus. No subcu air. Abdomen soft nontender normal bowel sounds no peritoneal signs. No bruising. No right upper quadrant tenderness. Moving all 4 extremities. Nontender no deformity. Normal range of motion. Normal senior contract specialist strength. Normal dorsi plantarflexion. Neurologically she is awake and alert with no focal motor deficits. Const Vital Signs: 09/21/22 09:21 Temperature 97.8 F Temperature Source Temporal Pulse Rate 84 Respiratory Rate 18 Blood Pressure 135/72 H Blood Pressure Mean 93 Pulse Ox 98 Oxygen Delivery Method Room Air Positive well nourished, well developed and obese; Negative for cachectic, contractures or unkempt General Appearance ED: well developed and NAD; Negative for unkempt, cachectic or contractures Nutritional Appearance: obese; Negative for cachectic HEENT atraumatic; Negative for trauma or tenderness Eyes PERRL and EOMs intact bilaterally Neck full ROM General: Negative for tenderness or other Chest Wall inspection of chest normal; Negative for palpation of chest normal Chest Narrative: Right-sided lateral rib cage tenderness and bruising. No acute area evidence. Resp normal respiratory effort and clear to auscultation bilaterally Auscultation: Negative for rales, rhonchi or wheezes Cardio regular rhythm, S1 normal heart sound, S2 normal heart sound and no murmurs Jugular Venous Distention: Negative for other Palpation: Negative for palpable S3 Rate: regular rate GI normal to inspection, nondistended, normoactive bowel sounds, non-tender, non- distended and no masses Inspection: Negative for abdominal distention Auscultation: normoactive bowel sounds Palpation: soft; Negative for tender or guarding Back/Spine normal to inspection and no thoracic nor lumbar tenderness General Back: Negative for CVA tenderness Thoracic Spine / Upper Back: Negative for thoracic spinal tenderness Extremity normal to inspection and full ROM General Extremety ED: Negative for deformity, edema or tenderness General Extremity: Negative for deformity or edema Neuro oriented x3, CN's II-XII intact bilaterally, moves all extremities, no focal motor deficits and no sensory deficits noted Irais Coma Scale: document GCS findings Spontaneous Obeys Commands Oriented 15 Sensorium / Orientation: alert, oriented to person, oriented to place and oriented to time; Negative for orientation impaired, lethargic or stuporous Motor Exam: strength 5/5 throughout; Negative for strength abnormal Psych mental status grossly normal and thought process normal Appearance: Negative for unkempt Attitude: No agitated Mood & Affect: Negative for depressed, anxious or tearful Skin no rashes or lesions noted, no wounds, skin turgor normal and no jaundice Skin Narrative: Bruising right lateral rib cage. General Skin Exam: Negative for other Rashes: No rashes noted Trauma: Negative for abrasion MDM MDM MDM Narrative Medical decision making narrative: 62-year-old female tripped and fell last hitting a dresser with her right rib cage. Has bruising on her right lateral chest wall. CT is being obtained to evaluate her for possible rib fractures versus pneumothorax or hemothorax. She did not want anything for pain. Repeat exam unchanged. I discussed with the patient her CAT scan results. There were no obvious rib fracture seen. Ice to her rib cage. Pillow to brace the rib cage. Motrin and Tylenol for pain. Radiography Diagnostic Testing: Clinical Impression(s) from Imaging Studies Chest CT 09/21/22 09:52 IMPRESSION: Mild degree of dependent bibasilar atelectasis slightly worse on the right side. No rib fractures seen. Electronically Signed: Cade Wooten MD at 10:47 EST , No acute rib fracture seen by the radiologist. Reviewed by me. Discharge Plan Triage Chief Complaint: Chest Other ED Provider: Karl Flores Dx/Rx/DC Orders Clinical Impression: Fall, Contusion of rib on right side Instructions: ED Bruise, Rib Prescriptions: No Action naproxen sodium [Aleve] 220 mg capsule 220 mg PO Q12H paroxetine HCl 20 mg tablet 20 mg PO DAILY omeprazole 20 mg capsule,delayed release(DR/EC) 20 mg PO DAILY metoprolol succinate [Toprol XL] 25 mg tablet extended release 24 hr 25 mg PO QDAY Qty: 90 3RF Primary Care Provider: Care Physician,No Primary Referrals: Josias Mckinney MD [Non-Staff] - 1 Week if not improving Activity Restrictions/Additional Instructions: Ice to your right rib cage. Tylenol Motrin for pain. Use a pillow to brace your ribs. CAT scan showed no rib fractures. Disposition Disposition: Home, Self Care
[2022-09-21 11:40] VITALS: BP 126/78; PULSE 78; RESP 16; TEMP 36.6; O2SAT 99
== END 2022-09-21 11:40 | disposition home or self-care (01) ==
PROVIDERS: Emergency Provider Emergency Medicine; Visit Provider Emergency Medicine
DX: S20.211A Contusion of right front wall of thorax, initial encounter (principal); E66.9 Obesity, unspecified; Z87.891 Personal history of nicotine dependence; W01.0XXA Fall on same level from slipping, tripping and stumbling without subsequent striking against object, initial encounter
CPT/HCPCS: 71250; 99282

== ENCOUNTER → 2022-12-04 | Outpatient (CLI) | payer OTHER, SELFPAY ==
--- NOTE | 2022-12-04 11:39 | RAD_ITS ---
STUDY: X-RAY - LUMBAR SPINE REASON FOR EXAM: Female, 62 years old. .FOLLOW UP FROM SURGERY 1 YR AGO TECHNIQUE: 4 view(s) of the lumbar spine were obtained. COMPARISON: 11/03/2021 FINDINGS: Normal lumbar lordosis. There is no substantial scoliosis. Status post discectomy, interbody fusion, transpedicular fixation at L4/L5 with anatomic alignment. No subluxation on flexion or extension views to suggest instability. There is multilevel endplate spondylosis of the lumbar vertebrae. There is multi-level degenerative disc disease with multi-level disc space narrowing. The soft tissue structures are unremarkable. RAD/L/S Spine Min 4 Views IMPRESSION: Interval discectomy, interbody fusion, transpedicular fixation at L4/L5 with anatomic alignment. No instability. Electronically Signed: Walker Eldridge MD at 22:29 EDT ,
== END | disposition home or self-care (01) ==
LOC: RAD 11:38
PROVIDERS: Referring Provider Orthopaedic Surgery; Visit Provider Orthopaedic Surgery
DX: M47.816 Spondylosis without myelopathy or radiculopathy, lumbar region (principal)
CPT/HCPCS: 72110

== ENCOUNTER 2022-12-29 13:13 | Day surgery (SDC) | payer OTHER, SELFPAY ==
[2022-12-29] VITALS (7 sets, daily range): BP systolic 110–147; BP diastolic 73–89; PULSE 71–92; RESP 16–17; TEMP 36.6–37; O2SAT 94–100; BMI 41.8
[2022-12-29] MEDS: Lactated Ringers 1,000 ML 15 ML IV (13:30)
--- NOTE | 2022-12-29 14:24 | PCM.HP.STD ---
[facility] - General General Date of Admission: 12/29/22 Date of Service: 12/29/22 Chief Complaint: screening colon HPI Narrative MIK WHITE, is a 62 F who presents for for screening colonoscopy. She has not had a colonoscopy in the past. She is not having any chest pain or shortness of breath. She has a history of PVCs ablated this can with medicine. She has no family history of colon cancer or colon polyps overall she is in very good health. FOR[facility]LY [facility], [facility] Medical History Alcohol use Anxiety Arthritis Bladder disease Cardiology follow-up encounter Degenerative disc disease, lumbar Depression Fatigue Former smoker GERD (gastroesophageal reflux disease) History of echocardiogram Hyperlipidemia Leg cramps Migraine headache Near syncope Obesity Osteoarthritis Premature ventricular beat Shortness of breath on exertion Supraventricular tachycardia UTI (urinary tract infection) Wears contact lenses Home Medications naproxen sodium 220 mg capsule (Aleve) 220 mg PO PRN PRN Pain 07/21/17 [History Last Taken Unknown] paroxetine HCl 20 mg tablet 40 mg PO DAILY 02/02/19 [History Last Taken Unknown] metoprolol succinate 25 mg tablet,extended release 24 hr (Toprol XL) 25 mg PO QDAY #90 tabs 08/09/19 [Rx Last Taken Unknown] omeprazole 20 mg capsule,delayed release 20 mg PO DAILY 03/12/21 [History Last Taken Unknown] hydrocodone-acetaminophen 5-325mg 5mg-325mg 1 tab PO Q4H PRN PRN Pain 4 days #10 TABLETS 09/21/22 [Rx Last Taken Unknown] cholecalciferol (vitamin D3) 25 mcg (1,000 unit) tablet (Vitamin D3) 25 mcg PO DAILY 12/25/22 [History Last Taken Unknown] doyojlogkzfx-Vx-fjze-minerals 18 mg-0.4 mg tablet 1 tab PO DAILY 12/25/22 [History Last Taken Unknown] vitamin B complex 1 cap PO DAILY 12/25/22 [History Last Taken Unknown] Allergy/AdvReac Type Severity Reaction Status Date / Time morphine AdvReac Nausea/Vom/ Verified 12/29/22 13:31 Diarrhea Family History Father CAD (coronary artery disease) ischemic cardiomyopathy Surgical History H/O excision of ganglion cyst History of History of dilatation and curettage History of lumbar spinal fusion History of total right knee replacement (~06/2011) Social History (Updated 10/27/22 @ 08:45 by Leticia Jimenez) household members: spouse current occupational status: employed Smoking Status: Former smoker alcohol intake: current alcohol intake frequency: holidays/special occasions only ROS Review of Systems ROS Unobtainable: other Constitutional Constitutional: Denies fatigue, fever(s), poor appetite, weight gain or weight loss ENT HEENT: Denies mouth lesions Cardiovascular Cardiovascular: Denies abdominal bloating, abdominal edema or abdominal pain Respiratory/Chest Respiratory/Chest: Denies change in mental status, change in phlegm color, chest congestion or chest tightness Gastrointestinal Gastrointestinal: Denies belching, bloating, change in bowel habits, change in stool character, chewing difficulty, coffee ground emesis, constipation, cramping, diarrhea, dyspepsia, dysphagia, early satiety, excessive flatus, fecal incontinence, heartburn, hematemesis, hematochezia, hemorrhoids, loose stools, melena, nausea, odynophagia, rectal bleeding, tenesmus, vomiting or weight changes Genitourinary Genitourinary: Denies abdominal discomfort, burning urination or itching Musculoskeletal Musculoskeletal: Reports as per HPI; Denies muscle weakness or myalgias Integumentary Integumentary: Denies jaundice Neurologic Neurologic: Denies lack of coordination or weakness Psychiatric Psychiatric: Denies confusion, depression, memory loss, mood swings, paranoia or suicidal ideation Endocrine Endocrinology: Denies systems reviewed and no addt'l complaints, except as documented Hematologic/Lymphatic Hematologic/Lymphatic: Denies anemia, easy bleeding, easy bruising or lymphadenopathy Allergic/Immunologic Allergic/Immunologic: Denies systems reviewed and no addt'l complaints, except as documented Vital Signs Vital Signs Vital Signs: 12/29/22 13:46 12/29/22 13:46 Temperature 98.1 F Temperature Source Temporal Pulse Rate 92 Respiratory Rate 17 Respiratory Pattern Normal Blood Pressure 147/89 H Blood Pressure Mean 108 Blood Pressure Source Monitor Blood Pressure Position Semi-Fowlers Blood Pressure Location Right Arm Pulse Ox 94 Oxygen Delivery Method Room Air Weight Weight: 266 lb 12.149 oz Body Mass Index (BMI) 41.8 Physical Exam Const alert General Appearance: cooperative Orientation / Consciousness: oriented to person HEENT hearing grossly normal bilaterally Head and Scalp: normal to inspection Face and Sinus: face symmetric Nose: external nose normal Mouth: oral and palatal mucosa normal Eyes conjunctivae normal General Eye: normal appearance of both eyes Neck full ROM General: normal visual inspection Lymph Lymphatic: no lymphadenopathy noted Chest inspection of chest normal and palpation of chest normal Chest: symmetrical chest wall rise Resp normal respiratory effort Effort and Inspection: able to speak in complete sentences Cardio regular rate GI non-distended Percussion: normal to percussion Rectal Exam: deferred Neuro Speech: speech normal Gait (Neuro): normal gait Assessment & Plan Assessment/Plan (1) Encounter for screening for malignant neoplasm of colon: PLAN: She was explained alternatives, risk, benefits include not withstanding bleeding, infection, sepsis, perforation, need for emergent surgery . She will have an ASA of 2.
--- NOTE | 2022-12-29 14:57 | OP.COLON_ITS ---
Patient Name: Julieta Mendes Procedure Date: 12/29/2022 2:22 PM Date of : 1960 Age: 62 Procedure: Colonoscopy Indications: Screening for colorectal malignant neoplasm Providers: Matthew Monterroso DO Referring MD: Irma Primary Care Physician Medicines: Monitored Anesthesia Care Patient Profile: This is a 62 year old female. Refer to note in patient chart for documentation of history and physical. Last Colonoscopy: none. The patient's first colonoscopy is today. Complications: No immediate complications. Procedure: Pre-Anesthesia Assessment: - Prior to the procedure, a History and Physical was performed, and patient medications and allergies were reviewed. The risks and benefits of the procedure and the sedation options and risks were discussed with the patient. All questions were answered and informed consent was obtained. Patient identification and proposed procedure were verified by the physician in the pre-procedure area. Mental Status Examination: alert and oriented. Airway Examination: normal oropharyngeal airway and neck mobility. Respiratory Examination: clear to auscultation. CV Examination: normal. Prophylactic Antibiotics: The patient does not require prophylactic antibiotics. Prior Anticoagulants: The patient has taken no previous anticoagulant or antiplatelet agents. ASA Grade Assessment: II - A patient with mild systemic disease. After reviewing the risks and benefits, the patient was deemed in satisfactory condition to undergo the procedure. The anesthesia plan was to use monitored anesthesia care (MAC). Immediately prior to administration of medications, the patient was re-assessed for adequacy to receive sedatives. The heart rate, respiratory rate, oxygen saturations, blood pressure, adequacy of pulmonary ventilation, and response to care were monitored throughout the procedure. The physical status of the patient was re-assessed after the procedure. After I obtained informed consent, the scope was passed under direct vision. Throughout the procedure, the patient's blood pressure, pulse, and oxygen saturations were monitored continuously. The pediatric colonoscope was introduced through the anus and advanced to the terminal ileum. The colonoscopy was performed without difficulty. The patient tolerated the procedure well. The quality of the bowel preparation was good. Scope In: 2:34:38 PM Scope Withdrawal Time 0 hours 10 minutes 3 seconds Scope Out: 2:48:41 PM Total Procedure Duration Time 0 hours 14 minutes 3 seconds Findings: The perianal and digital rectal examinations were normal. A few small-mouthed diverticula were found in the recto-sigmoid colon. The exam was otherwise without abnormality on direct and retroflexion views. Impression: - Diverticulosis in the recto-sigmoid colon. - The examination was otherwise normal on direct and retroflexion views. - No specimens collected. Recommendation: - Discharge patient to home. - Resume previous diet. - Continue present medications. - Repeat colonoscopy in 10 years for screening purposes. Procedure Code(s): --- Professional --- G0121, Colorectal cancer screening; colonoscopy on individual not meeting criteria for high risk CPT copyright 2017 [employer]. All rights reserved. The codes documented in this report are preliminary and upon manager brand review may be revised to meet current compliance requirements. Matthew Monterroso DO 12/29/2022 2:56:50 PM This report has been signed electronically. Number of Addenda: 0 Note Initiated On: 12/29/2022 2:22 PM
--- NOTE | 2022-12-29 14:57 | OP.CCLET_ITS ---
12/29/2022 No Primary Care Physician Re : Colonoscopy procedure for Julieta Mendes Dear Care Physician This procedure was performed on Thursday, December 29, 2022. My impressions and recommendations are as follows: Impressions : - Diverticulosis in the recto-sigmoid colon. - The examination was otherwise normal on direct and retroflexion views. - No specimens collected. Recommendations : - Discharge patient to home. - Resume previous diet. - Continue present medications. - Repeat colonoscopy in 10 years for screening purposes. My findings are described in the full procedure note, which is enclosed. If I can be of further assistance, please feel free to contact me at . Sincerely, Matthew Monterroso, 12/29/2022 2:56:50 PM This report has been signed electronically.
== END 2022-12-29 15:47 | disposition home or self-care (01) ==
LOC: EN 13:15 → AC 13:18
PROVIDERS: PCP Family Medicine; Referring Provider Internal Medicine Gastroenterology; Visit Provider Internal Medicine Gastroenterology
PROC: 0DJD8ZZ Inspection of Lower Intestinal Tract, Via Natural or Artificial Opening Endoscopic (ICD-10-PCS; CPT 45378; principal; 2022-12-29 14:10)
DX: Z12.11 Encounter for screening for malignant neoplasm of colon (principal); K57.30 Diverticulosis of large intestine without perforation or abscess without bleeding; Z87.891 Personal history of nicotine dependence; E78.5 Hyperlipidemia, unspecified; K21.9 Gastro-esophageal reflux disease without esophagitis; E66.9 Obesity, unspecified; Z79.899 Other long term (current) drug therapy; Z68.39 Body mass index [BMI] 39.0-39.9, adult
CPT/HCPCS: G0121; J7120; J2405

== ENCOUNTER → 2023-03-18 | Outpatient (CLI) | payer OTHER, SELFPAY | END | disposition home or self-care (01) | LOC: SL 20:07 | PROVIDERS: PCP Family Medicine; Referring Provider Family Medicine; Visit Provider Family Medicine | DX: G47.33 Obstructive sleep apnea (adult) (pediatric) (principal) | CPT/HCPCS: 95810 ==

== ENCOUNTER → 2023-04-09 | Outpatient (CLI) | payer OTHER, SELFPAY | END | disposition home or self-care (01) | LOC: SL 20:09 | PROVIDERS: PCP Family Medicine; Visit Provider Family Medicine | DX: G47.33 Obstructive sleep apnea (adult) (pediatric) (principal) | CPT/HCPCS: 95811 ==

== ENCOUNTER → 2023-04-21 | Outpatient (CLI) | payer OTHER, SELFPAY | END | disposition home or self-care (01) | LOC: SL 15:25 | PROVIDERS: PCP Family Medicine; Visit Provider Family Medicine | DX: Z00.00 Encounter for general adult medical examination without abnormal findings (principal) ==

== ENCOUNTER → 2023-05-19 | Outpatient (CLI) | payer OTHER, SELFPAY ==
--- NOTE | 2023-05-19 14:35 | CT_ITS ---
STUDY: CT ABDOMEN AND PELVIS WITHOUT CONTRAST REASON FOR EXAM: Female, 63 years old. HEMATURIA RADIATION DOSAGE (If Supplied By Facility): CTDIvol = ( 32.86 ) mGy, DLP = ( 1764.93 ) mGycm TECHNIQUE: Transaxial images were obtained from the dome of the diaphragm to the symphysis pubis without oral contrast, and without intravenous contrast. Sagittal and coronal images were reconstructed. Individualized dose optimization techniques were used for this CT. COMPARISON: None. FINDINGS: The visualized lung bases are unremarkable. Coronary artery calcification. Normal liver. Normal gallbladder and extrahepatic biliary system. Normal spleen. Normal pancreas. Normal bilateral adrenal glands. Normal right kidney. Normal left kidney. Normal visualized stomach. Normal small intestine. Normal colon. The appendix is visualized and appears normal. Normal abdominal aorta. Normal inferior vena cava. Normal retroperitoneum. Normal urinary bladder. Normal abdominal wall. Prior laminectomy and fusion at the L4-L5 level with prosthetic disc placement. CT/Abdomen/Pelvis without Cont IMPRESSION: No acute abnormality is seen. Electronically Signed: Cade Wooten MD at 15:19 EDT ,
== END | disposition home or self-care (01) ==
LOC: CT 14:34
PROVIDERS: PCP Family Medicine; Referring Provider Family Medicine; Visit Provider Family Medicine
DX: R31.21 Asymptomatic microscopic hematuria (principal)
CPT/HCPCS: 74176

== ENCOUNTER → 2023-06-14 | Outpatient (CLI) | payer OTHER, SELFPAY ==
--- NOTE | 2023-06-14 10:52 | BI_ITS ---
MAMMOGRAPHY - BILATERAL SCREENING REASON FOR EXAM: Female, 63 years old. Routine annual screening examination. PERTINENT HISTORY: Non-contributory. TECHNIQUE: Digital bilateral breast wu (3D mammographic acquisition) in the CC and MLO projections. 2-D mediolateral oblique (MLO) and craniocaudad (CC) views of both breasts were obtained. CAD: Full Field Digital Mammography with Computer Added Detection was performed. COMPARISON: Comparison is made with prior study dated June 09, 2022 and June 03, 2021. FINDINGS: Breast Composition: The breasts are heterogeneously dense, which may obscure small masses. There are no dominant masses or suspicious calcifications. Stable small benign-appearing bilateral axillary lymph nodes. No other significant abnormalities are identified. There has been no significant change since the prior study. BI/SCRN MAMM (CAD)W/WU BILAT IMPRESSION: Stable bilateral screening mammogram. Yearly follow-up mammogram recommended. (A) ASSESSMENT CATEGORY: BIRADS Category 2: Benign. A letter regarding these results will be sent to the patient by the facility within 30 days. Approximately 10% of breast cancers are not detected by mammography. A normal mammogram should not delay biopsy of a clinically suspicious abnormality. [id number] Electronically Signed: Cade Wooten MD at 9:33 EST ,
== END | disposition home or self-care (01) ==
LOC: OPBI 11:56
PROVIDERS: PCP Family Medicine; Referring Provider Family Medicine; Visit Provider Family Medicine
DX: Z12.31 Encounter for screening mammogram for malignant neoplasm of breast (principal)
CPT/HCPCS: 77063; 77067

== ENCOUNTER → 2023-08-05 | Outpatient (CLI) | payer OTHER, SELFPAY ==
--- OUTSIDE RECORDS SUMMARY | 2023-08-05 07:55 | XMS RPT_ITS | CCD ---
Author Name Unknown Address [address] [place] [address] Organization [facility] Care Team Providers Care Sprayer Automatic Spray Machine Name Role Phone Mildred Montoya RN Unavailable Unavailable Unavailable Primary Care Provider Unavailabl e Medications Completed/Discontinued Medications Medication Drug Class(es) Dates Sig (Normalized) Sig (Original) Drug Treatment Unknown - unknown (1 source) No information available. Problems Active Problems Problem Classification Problem Date Documented Da te Episodic/Chronic Cardiac dysrhythmias (1 source) Ventricular premature beats; Translations: [Ventricular premature depolarization] Onset: 06-22-2017 06-22-2017 Chronic Genitourinary symptoms and ill-defined conditions (1 source) Incontinence; Translations: [Unspecified urinary incontinence] Chronic Other nervous system disorders (1 source) Numbness and tingling sensation of skin; Translations: [Anesthesia of skin] Episodic Spondylosis; intervertebral disc disorders; other back problems (1 source) Chronic low back pain; Translations: [Chronic bilateral low back pain, unspecified whether sciatica present] Episodic Past or Other Problems Problem Classification Problem Date Documented Da te Episodic/Chronic Cardiac dysrhythmias (1 source) Palpitations; Translations: [Palpitations] Onset: 06-22-2017 06-22-2017 Episodic Results Test Name Value Interpretation Reference Range Facil ity Vital Signs Date Time Vital Sign Value Performing Clinician Faci lity 11-25-2021 14:27-0400 Body temperature 98.8 [degF] Huber Jolly MD Work Phone: [facility] 11-25-2021 14:27-0400 Diastolic blood pressure 88 mm[Hg] Huber Jolly MD Work Phone: [facility] 11-25-2021 14:27-0400 Heart rate 89 /min Huber Jolly MD Work Phone: [facility] 11-25-2021 14:27-0400 Respiratory rate 17 /min Huber Jolly MD Work Phone: [facility] 11-25-2021 14:27-0400 SaO2% (BldA) [Mass fraction] 98 % Huber Jolly MD Work Phone: [facility] 11-25-2021 14:27-0400 Systolic blood pressure 148 mm[Hg] Huber Emanuel Work Phone: [facility] Encounters Encounter Date Encounter Type Care Provider Facility Start: 11-25-2021 End: 11-25-2021 Emergency department patient visit Huber Jolly MD Work Phone: [facility] Emergency Dept Procedures Date Procedure Procedure Detail Performing Clinician Start: 11-25-2021 Basic metabolic pane l calcium total Huber Jolly MD Work Phone: Plan of Treatment Date Care Activity Detail Author Start: 03-26-2022 Influenza vaccination Flu vacc ine (Season Ended) [facility] Start: 07-21-2017 End: 07-21-2017 Appointment Appointment [facility] Work Phone: Start: 01-06-1980 DTaP/Tdap/Td vaccine (1 - Tdap) DTaP/Tdap/Td vaccine (1 - Tdap) [facility] Start: 1966 COVID-19 Vaccine (1) COVID-19 Vaccin e (1) [facility] Social History Date Type Detail Facility [facility] Start: 1960 Sex Assigned At Not on file [facility] Work Phone: Start: 11-15-2021 End: 11-25-2021 Exposure to SARS-CoV-2 (event) Not sure [facility] Work Phone: Hospital Discharge instructions 11-25-2021 Instructions Note Date & Type Note Facility 11-25-2021 Hospital Discharg e instructions Mari Loomis PA-C - 11/25/2021 Images from the original note were not included. Orthopaedic Surgery Discharge Instructions: -Weight bearing as tolerated -Activity as tolerated, except avoid heavy lifting/pulling/otherwise strenuous activity -Follow-up outpatient with Dr. John Newman. The office contact information is provided in your paperwork. -IF you experience SEVERE worsening of pain in short period of time and/or significant numbness/weakness in extremities or new loss of bowel or bladder function please call the office or return to the emergency department -Take medications as prescribed by the hospital doctors documented in this encounter [facility] Work Phone: Clinical Note 04-30-2021 Note Date & Type Note Facility 04-30-2021 Note ADDITIONAL PROCEDURES PRESENT Specimen originated from [facility] Specimen #: [id number] Submitting Physician: TORRES BEJARANO CNM SPECIMEN SUBMITTED A: CERVICAL, SCREENING, FLUID FINAL DIAGNOSIS A. CERVICAL, SCREENING, FLUID Satisfactory for interpretation. Negative for intraepithelial lesion or malignancy. This specimen has been analyzed by the ThinPrep Imaging System, an automated imaging and review system, which assists the laboratory in evaluating cells on ThinPrep Pap tests. Following automated imaging, selected funes from every slide are reviewed by a brazer repair and salvage. SHERRI Shirley(ASCP) (Electronic Signature) ADDITIONAL PROCEDURE(S) HUMAN PAPILLOMA VIRUS Date Ordered: 05/01/2021 Date Reported: 05/02/2021 Procedure Results and Interpretation Negative for HPV DNA high risk type 16 by PCR. Negative for HPV DNA high risk type 18 by PCR. Negative for HPV DNA high risk types: 31,33,35,39,45,51,52,56,58,59,66,68 by PCR. This test was developed and its performance characteristics determined by [facility]'s [facility] [place] ([facility]). It has not been cleared or approved by the FDA. [facility] is regulated under CLIA as qualified to perform high-complexity testing. This test is used for clinical purposes. It should not be regarded as investigational or for research. CLINICAL DATA ROUTINE EXAM, HPV Testing: Yes, automatic HPV patients over 30 Date of Last Menstrual Period: Postmenopausal STAINS A: CERVICAL, SCREENING, FLUID THIN PREP HAND RIGGER Geneva Sanders M.D., Therapeutic Riding Instructor Date of Report: 05/09/2021 Date of Procedure: 04/30/2021 Date of Receipt: 05/01/2021 Submitted by: TORRES BEJARANO CNM Location: [facility] Diagnostic interpretation performed at [facility], [address] [place] [address]. CLIA Number: [id number] The Pap Smear is a screening test for cervical cancer. False negative results occur with all screening tests, emphasizing the need for rescreening at recommended intervals, and clinical correlation. [facility] Progress note 04-30-2021 Note Date & Type Note Facility 04-30-2021 Note HNO ID: [id number] Author: Torres Bejarano APRN.CNM Service: ? Author Type: Transporter Driver Type: Progress Notes Filed: 04/30/2021 11:12 AM Note Text: Julieta is a 61 year old- new to practice who presents for an annual gynecologic exam without complaints. Patient has not been seen by OB in many years. Postmenopausal: Yes since age 44 HRT use: No. Last Pap: Normal- 12 years ago HPV: negative History of abnormal pap: Yes- age 21- cryo Last mammogram: 2019 normal History of abnormal mammogram: No Sexually active: No- colostomy bag Time with current partner: 28 years Pain with intercourse: No Postcoital bleeding: No Hot flashes: No Night sweats: Yes Vaginal dryness: No OB History No obstetric history on file. PAST MEDICAL HISTORY Diagnosis Date - PVC (premature ventricular contraction) PAST SURGICAL HISTORY Procedure Laterality Date - SECTION HX 08/12/95,04/04/98 - TOTAL KNEE REPLACEMENT Right 07/11/2010 No family history on file.SOCIAL HISTORY Social History Tobacco Use - Smoking status: Never Smoker Substance Use Topics - Alcohol use: Yes Comment: social - Drug use: No REVIEW OF SYSTEMS Abdomen: No abdominal pain, nausea, vomiting, diarrhea, or constipation. No bloating, early satiety, indigestion, or increased flatulence. Bladder: No dysuria, gross hematuria, urinary frequency, urinary urgency, or incontinence Breast: No breast lumps, nipple d/c, overlying skin changes, redness or skin retraction Allergies and current medication updated:Yes EXAM: BP 110/68 Ht 5' 5 (1.65m) Wt 264 lb (119.8kg) BMI 43.93 kg/(m2). GENERAL: pleasant, female in no apparent distress HEENT: Normocephalic, atraumatic, mucus membranes moist and no lesions NECK: Supple, full range of motion and no adenopathy DERMATOLOGY: Normal, without lesions, non-icteric and non-hirsute BREAST: soft, non-tender, symmetric, no dominant mass, normal nipple-areolar complex, no lymphadenopathy and no nipple discharge CHEST: Clear to auscultation and Normal inspiratory effort ABDOMEN: soft, non-tender and no masses PELVIC: external genitalia normal, normal Bartholin's glands, urethra, Rocky Ripple's glands, no vulvar lesions, no cervical lesions, physiologic discharge present, normal appearing perineal body and perianal region, stenotic os NEURO: alert and oriented x3,exam grossly non-focal EXTREMITIES: normal ASSESSMENT/PLAN: 1) Health maintenance: Pap done with HPV. Mammogram ordered - Pt to complete at [facility] Colon cancer screening: patient to discuss with PCP TSH/lipids/glucose: followed by PCP Vitamin D: followed by PCP 2) Follow up one year or sooner as needed Torres Bejarano APRN.FLYNN [facility] Evaluation note Note Date & Type Note Facility documented in this encounter [facility] Work Phone: Summary Purpose Family History No Family History Records FoundNo Family History Records FoundNo Family History Records Found Advance Directives No Advanced Directives Records FoundNo Advanced Directives Records FoundNo Advanced Directives Records Found Additional Source Comments INFORMATION SOURCE (unrecogn ized section and content) DATE CREATED AUTHOR AUTHOR'S ORGANIZ ATION 11/27/2021 [facility] DATE CREATED AUTHOR AUTHOR'S ORGANIZ ATION 11/29/2021 [facility] Reason for Visit (unrecogniz ed section and content) FOR RECORDS PERTAINING TO PATIENTS WHO ARE OR HAVE BEEN ENROLLED IN A CHEMICAL DEPENDENCY/SUBSTANCEABUSE PROGRAM, SOME INFORMATION MAY BE OMITTED. This clinical summary was aggregated from multiple sources. Caution should be exercised in using it in the provision of clinical care. This summary normalizes information from multiple sources, and as a consequence, information in this document may materially change the coding, format and clinical context of patient data. In addition, data may be omitted in some cases. CLINICAL DECISIONS SHOULD BE BASED ON THE PRIMARY CLINICAL RECORDS. [employer] [facility]. provides no warranty or guarantee of the accuracy or completeness of information in this document.
== END | disposition home or self-care (01) ==
LOC: LABSPEC 07:50
PROVIDERS: PCP Family Medicine; Visit Provider Physician Assistant Surgical
DX: N39.0 Urinary tract infection, site not specified (principal)
CPT/HCPCS: 87077; 87086; 87088; 87186

== ENCOUNTER → 2023-10-04 | Outpatient (CLI) | payer OTHER, SELFPAY | END | disposition home or self-care (01) | LOC: LABSPEC 10:39 | PROVIDERS: PCP Family Medicine; Referring Provider Physician Assistant Medical; Visit Provider Physician Assistant Medical | DX: N39.0 Urinary tract infection, site not specified (principal) | CPT/HCPCS: 87086; 87088; 87186 ==

== ENCOUNTER → 2024-01-13 | Outpatient (CLI) | payer OTHER, SELFPAY ==
--- NOTE | 2024-01-13 13:45 | RAD_ITS ---
STUDY: X-RAY - LEFT KNEE REASON FOR EXAM: Female, 64 years old. Pain. TECHNIQUE: 4 views of the left knee. COMPARISON: None. FINDINGS: Normal visualized distal femur. Normal visualized proximal tibia and fibula. Normal proximal tibiofibular articulation. There is no demonstrated fracture. There is severe degenerative arthrosis of the medial femorotibial compartment with severe joint space narrowing. There is moderate degenerative arthrosis of the lateral femorotibial compartment with moderate joint space narrowing. There is moderate degenerative arthrosis of the patellofemoral articulation. There is a small knee joint effusion. The soft tissue structures are unremarkable. 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 Small knee joint effusion. No demonstrated fracture. Electronically Signed: Migue Cabrera MD at 12:16 EDT ,
== END | disposition home or self-care (01) ==
LOC: RAD 13:27
PROVIDERS: PCP Family Medicine; Referring Provider Orthopaedic Surgery; Visit Provider Orthopaedic Surgery
DX: M17.12 Unilateral primary osteoarthritis, left knee (principal)
CPT/HCPCS: 73564

== ENCOUNTER 2024-03-06 08:55 | Outpatient (RCR) | payer OTHER, SELFPAY | END 2024-03-25 23:59 | LOC: NS 08:55 | PROVIDERS: PCP Family Medicine; Referring Provider Orthopaedic Surgery; Visit Provider Orthopaedic Surgery | DX: Z71.3 Dietary counseling and surveillance (principal); E66.01 Morbid (severe) obesity due to excess calories; Z68.41 Body mass index [BMI] 40.0-44.9, adult | CPT/HCPCS: 97802 ==

== ENCOUNTER 2024-04-11 08:28 | Outpatient (RCR) | payer OTHER, SELFPAY | END 2024-04-24 23:59 | LOC: NS 08:28 | PROVIDERS: PCP Family Medicine; Referring Provider Orthopaedic Surgery; Visit Provider Orthopaedic Surgery | DX: Z71.3 Dietary counseling and surveillance (principal); E66.01 Morbid (severe) obesity due to excess calories; Z68.41 Body mass index [BMI] 40.0-44.9, adult | CPT/HCPCS: 97803 ==

== ENCOUNTER → 2024-05-02 | Outpatient (CLI) | payer OTHER, SELFPAY ==
[2024-05-09 10:09] LABS: Age Gdln ACOG Testing 30-65 (.); HPV APTIMA, High Risk Negative (Negative)
[2024-05-10 11:35] LABS: HPV Reflexed? YES, CHARGE PATIENT
== END | disposition home or self-care (01) ==
LOC: LABSPEC 05-03 10:16
PROVIDERS: PCP Family Medicine; Referring Provider Family Medicine; Visit Provider Family Medicine
DX: Z12.4 Encounter for screening for malignant neoplasm of cervix (principal)
CPT/HCPCS: 87624; 88175; G0145

== ENCOUNTER 2024-05-11 10:57 | Outpatient (RCR) | payer OTHER, SELFPAY | END 2024-05-25 23:59 | LOC: NS 10:57 | PROVIDERS: PCP Family Medicine; Referring Provider Orthopaedic Surgery; Visit Provider Orthopaedic Surgery | DX: Z71.3 Dietary counseling and surveillance (principal); E66.01 Morbid (severe) obesity due to excess calories; Z68.41 Body mass index [BMI] 40.0-44.9, adult | CPT/HCPCS: 97803 ==

== ENCOUNTER 2024-06-06 14:31 | Outpatient (RCR) | payer OTHER, SELFPAY | END 2024-06-24 23:59 | LOC: NS 14:31 | PROVIDERS: PCP Family Medicine; Referring Provider Orthopaedic Surgery; Visit Provider Orthopaedic Surgery | DX: Z71.3 Dietary counseling and surveillance (principal); E66.01 Morbid (severe) obesity due to excess calories; Z68.41 Body mass index [BMI] 40.0-44.9, adult | CPT/HCPCS: 97803 ==

== ENCOUNTER → 2024-06-19 | Outpatient (CLI) | payer OTHER, SELFPAY ==
--- NOTE | 2024-06-19 08:24 | BI_ITS ---
MAMMOGRAPHY - BILATERAL SCREENING 3-D TOMOSYNTHESIS REASON FOR EXAM: Female, 64 years old. SCREENING PERTINENT HISTORY: No significant family history. TECHNIQUE: 2-D mammograms and 3-D Tomosynthesis of the breast (s) were performed. CAD was performed. COMPARISON: 06/14/2023 FINDINGS: The breast composition is Extermely dense tissue. Scattered benign calcifications are seen. No dense spiculated masses or suspicious microcalcifications are identified. No architectural distortion is identified. There is no skin thickening or retraction. There has been no significant change since the prior study. BI/SCRN MAMM (CAD)W/WU BILAT IMPRESSION: No mammographic signs of malignancy. Routine yearly mammograms recommended. ASSESSMENT CATEGORY: BIRADS Category 1: Negative. A letter regarding these results will be sent to the patient by the facility within 30 days. FOLLOW UP RECOMMENDATION: Yearly follow up mammogram recommended. (A) Approximately 10% of breast cancers are not detected by mammography. A normal mammogram should not delay biopsy of a clinically suspicious abnormality. Electronically Signed: Walker Eldridge MD at 16:40 EST ,
== END | disposition home or self-care (01) ==
LOC: OPBI 08:21
PROVIDERS: PCP Family Medicine; Referring Provider Family Medicine; Visit Provider Family Medicine
DX: Z12.31 Encounter for screening mammogram for malignant neoplasm of breast (principal)
CPT/HCPCS: 77063; 77067

== ENCOUNTER 2024-06-28 07:52 | Outpatient (RCR) | payer OTHER, SELFPAY | END 2024-07-25 23:59 | LOC: NS 07:52 | PROVIDERS: PCP Family Medicine; Referring Provider Orthopaedic Surgery; Visit Provider Orthopaedic Surgery | DX: Z71.3 Dietary counseling and surveillance (principal); E66.01 Morbid (severe) obesity due to excess calories; Z68.41 Body mass index [BMI] 40.0-44.9, adult | CPT/HCPCS: 97803 ==

== ENCOUNTER → 2024-08-03 | Outpatient (CLI) | payer OTHER, SELFPAY | END | disposition home or self-care (01) | LOC: LABSPEC 10:12 | PROVIDERS: PCP Family Medicine; Referring Provider Physician Assistant Surgical; Visit Provider Physician Assistant Surgical | DX: R30.0 Dysuria (principal) | CPT/HCPCS: 87086; 87088; 87186 ==

== ENCOUNTER 2024-08-22 10:00 | Outpatient (RCR) | payer OTHER, SELFPAY | END 2024-08-25 23:59 | LOC: NS 10:00 | PROVIDERS: PCP Family Medicine; Referring Provider Orthopaedic Surgery; Visit Provider Orthopaedic Surgery | DX: Z71.3 Dietary counseling and surveillance (principal); E66.01 Morbid (severe) obesity due to excess calories; Z68.41 Body mass index [BMI] 40.0-44.9, adult | CPT/HCPCS: 97803 ==

== ENCOUNTER 2024-10-23 11:00 | Outpatient (RCR) | payer OTHER, SELFPAY ==
--- NOTE | 2024-07-10 08:04 | HP.PTEVAL_ITS ---
Patient's Visit Information Visit Information Visit Information: MIK WHITE is a 64 year old F referred to Physical Therapy by Dr. Ronal Buck MD with a diagnosis of L TKA, DOS: 07/03/24. Date of Evaluation: 07/06/24 Physical Therapist: Joe Pepe DPT Visit Plan Frequency: 3x /Week Duration: 6 Weeks Plan: 1) L knee ROM progressing to 0-0-120deg, HS stretching 2) joint mobs including PAs and APs to increase ROM 3) foam rolling of IT band, quads, HS 4) vaso for edema control 5) quad initiation progressing to functional strengthening 6) gait progression, moving from AD to no Ad as safely able. Subjective Subjective: Pt. is here today for her initial evaluation with diagnosis of L TKA. DOS: 07/03/24. Pt. arrives using FWW. Pt. reports overall doing well. Pt. reports walking frequently, icing multiple times per day and doing some of her exercises as able. Pt. denies N/T in either LE. Pt. reports no calf pain. No dizziness and no chest pains. Pt. is wearing her TEDs and elevating as indicated. 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 Pt. is having some trouble sleeping and is taking her pain meds as prescribed. Pt. also likes to ride horses and would like to get back to this as well. Pain L knee: Pain Intensity (Out of 10): 2 Pain Intensity Range: 0 and 4 Objective Objective: POSTURE: Pt. has good wt. shift in stance in stance. pt. uses FWW in stance. PALPATION: Pt. has negative howmans sign. Pt. has bandage in place, but is to leave on for a few more days. No signs of infection noted, but bandage still in place. NEURO: Pt. has normal achilles DTR. Pt. is able to rise on heels and toes. ROM: L knee: 0-5-83deg. Tightness in B HS. Tightness noted at end range of B knee motions. MMT: L knee: ext 2# increase NW, flexion 8# NW; hip: flexion 0#, abd 5#, ext 3#. GAIT: Pt. ambulates without FWW with slight loss of TKE during stance phase. Decent knee flexion during swing phase. STAIRS: step to pattern loading RLE only. Balance/Special Test Scores TUG Test Time Seconds: 29.1 30 Second Chair Rise Test Seconds: 6 WOMAC Total Score: 19 WOMAC Percentatge: 80.2100 Goals Goal 1:: LTG: PT. to be I with HEP. Goal Time Frame: 4-6 Weeks Goal 2:: LTG: Pt. to have symmetrical BLE strength. Goal Time Frame: 4-6 Weeks Goal 3:: STG: Pt. to have symmetrical girth between B knees indicating reduced L knee edema. Goal Time Frame: 2-4 Weeks Goal 4:: LTG: PT. to have L knee ROM improved to 0-0-120deg allowing for increased functional mobility. Goal Time Frame: 4-6 Weeks Goal 5:: LTG: Pt. to complete TUG with time less than 10seconds. Goal Time Frame: 4-6 Weeks Goal 6:: LTG: Pt. to negotiate steps with reciprocal pattern with use of 1 HR. Goal Time Frame: 4-6 Weeks Rehabilitation Potential Physical Therapy Diagnosis: Pt. has signs and symptoms consistent with L TKA, DOS: 07/03/24. Pt. has marked hypomobility, weakness, difficulty walking and increased edema. Pt would benefit from PT to address the above limitations progressing back to all work and recreational activities. Rehabilitation Potential: Excellent Anticipated Interventions Patient/Client Instruction: Educate patient on: Condition, Plan of Care, Risk Factors and Benefits of Fitness Program For the Purpose of:: To improve decision making, To facilitate caregiver knowledge, To improve self management, To prevent re-injury, To improve ability to perform tasks related to life management and To improve tolerance to ADL's Therapeutic Exercise to Include: Strength training, Power training, Flexibilty training, Gait and locomotor training, Passive ROM and Active ROM For the Purpose of:: To decrease pain, To increase ROM, To improve nutrient delivery to tissue, To increase oxygenation perfusion, To improve muscle performance and motor function, To improve ability to perform ADL's, To increase tolerance to activity/condition/position and To improve performance and independence with ADL's Cryotherapy (ice pack, ice massage): Yes Vasopneumatic device: Yes For the Purpose of:: To decrease pain, To decrease swelling/inflammation, To increase ROM, To improve nutrient delivery to tissue, To increase oxygenation perfusion and To improve muscle performance and motor function Text: Thank you for the opportunity to evaluate your patient. For Medicare and Medicare HMO plans, please review the plan of care and approve it. It will need to be FAXED BACK to us at [phone] for Medicare purposes. For Medicare only, by signing this I certify the plan of care. Please let me know if there are questions or concerns regarding this plan of car e. Physician Signature: Date:
--- NOTE | 2024-09-01 14:52 | HP.PTREVAL_ITS ---
Re-Evaluation Intro: Dr. Ronal Buck MD, It has been my pleasure to treat MIK WHITE over the last 22 visits for L TKA, DOS: 07/03/24. Please see the progress note below for an update on the physical therapy plan of care! Subjective Subjective: Pt. reports overall doing much better. Pt. reports being 75% better overall. Pt. feels like her leg is still weak. She has use railings with stairs. Objective Objective/Function: ROM: 0-0-110deg. PROM 0-0-112deg. MMT: LLE: hip: flexion 36.8#, abd 34.0#; knee ext: 31.4#, flexion 28.7# RLE: hip: flexion 41.3#, abd 41.0#; knee: ext 36.0#, flexion 37.3# GAIT: pt. continues to have a bit of lateral hip sway with gait. No marked pain, but does have postural sway. She does have some hip weakness She is able get in and out of the car without issue. 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 I would really like her to have increased symmetrical strength. girth measurements: mid patella Left 4cm greater than R Plan Plan Plan: Cont to work on strengthening, functional strength and gait techniques to reduce lateral hip sway and increase endurance. Focus on quads, glutes, glute medius and HS strengthening. Balance/Gait/Functional tests Balance/Special Test Scores Lower Extremity Functional Score: 57 TUG Test Time Seconds: 6.9 Tug Test: <20 sec.=mostly independent 30 Second Chair Rise Test Seconds: 12 6 Minute Walk Test: 1416 without AD. WOMAC Total Score: 19 WOMAC Percentage: 80.2100 Goals Goals Goal 1:: LTG: PT. to be I with HEP. Goal Time Frame: 4-6 Weeks Goal Progress: Goal Met Goal 2:: LTG: Pt. to have symmetrical BLE strength. Goal Time Frame: 4-6 Weeks Goal Progress: Progressing Goal 3:: STG: Pt. to have symmetrical girth between B knees indicating reduced L knee edema. Goal Time Frame: 2-4 Weeks Goal Progress: Progressing Goal 4:: LTG: PT. to have L knee ROM improved to 0-0-120deg allowing for increased functional mobility. Goal Time Frame: 4-6 Weeks Goal Progress: Progressing Goal 5:: LTG: Pt. to complete TUG with time less than 10seconds. Goal Time Frame: 4-6 Weeks Goal Progress: Goal Met Goal 6:: LTG: Pt. to negotiate steps with reciprocal pattern with use of 1 HR. Goal Time Frame: 4-6 Weeks Goal Progress: Progressing Anticipated Interventions Anticipated Interventions Patient/Client Instruction: Educate patient on: Condition, Plan of Care, Risk Factors and Benefits of Fitness Program For the Purpose of:: To improve decision making, To facilitate caregiver knowledge, To improve self management, To prevent re-injury, To improve ability to perform tasks related to life management and To improve tolerance to ADL's Therapeutic Exercise to Include: Strength training, Power training, Flexibilty training, Gait and locomotor training, Passive ROM and Active ROM For the Purpose of:: To decrease pain, To increase ROM, To improve nutrient delivery to tissue, To increase oxygenation perfusion, To improve muscle performance and motor function, To improve ability to perform ADL's, To increase tolerance to activity/condition/position and To improve performance and independence with ADL's Cryotherapy (ice pack, ice massage): Yes Vasopneumatic device: Yes For the Purpose of:: To decrease pain, To decrease swelling/inflammation, To increase ROM, To improve nutrient delivery to tissue, To increase oxygenation perfusion and To improve muscle performance and motor function Re-Evaluation Ending Re-evaluation ending: Please do not hesitate to contact me at [phone] by phone or if you have questions or concerns regarding this new plan of care! Sincerely, Joe Pepe DPT
--- NOTE | 2024-10-02 16:56 | HP.PTREVAL_ITS ---
Re-Evaluation Intro: Dr. Ronal Buck MD, It has been my pleasure to treat JULIETA WHITE over the last 33 visits for L TKA, DOS: 07/03/24. Please see the progress note below for an update on the physical therapy plan of care! Subjective Subjective: Pt reports overall doing well. She is back to work, but does have some issues with this. She reports increased tightness and soreness by the end of the day. Objective Objective/Function: ROM: 0-0-110 AROM, PROM 0-0-112deg. MMT: RLE: knee ext 52#, flexion 47.9# LLE: ext: 54.3#, flexion 38.2# GAIT: Pt. ambulates without AD, good knee flexion and extension. She does yvrose nue to have increased lateral hip sway, but is better with increased focus. STAIRS: Pt. is able to complete with 1 HR with good tolerance. TU.6sec no AD 6 MWT: 1157 no AD Julieta is overall doing well. I would like her knee flexion ROM to be improved to 120deg range. Plan Plan Plan: I am extending her for 3 weeks until seeing physician. Work on knee flexion ROM, gait mechanics and stair negotiation without HR. Balance/Gait/Functional tests Balance/Special Test Scores Lower Extremity Functional Score: 62 TUG Test Time Seconds: 6.6 Tug Test: <10 sec.=free mobile 30 Second Chair Rise Test Seconds: 14 6 Minute Walk Test: 1416 without AD. WOMAC Total Score: 19 WOMAC Percentage: 80.2100 Goals Goals Goal 1:: LTG: PT. to be I with HEP. Goal Time Frame: 4-6 Weeks Goal Progress: Goal Met Goal 2:: LTG: Pt. to have symmetrical BLE strength. Goal Time Frame: 4-6 Weeks Goal Progress: Goal Met Goal 3:: STG: Pt. to have symmetrical girth between B knees indicating reduced L knee edema. Goal Time Frame: 2-4 Weeks Goal Progress: Goal Met Goal 4:: LTG: PT. to have L knee ROM improved to 0-0-120deg allowing for increased functional mobility. Goal Time Frame: 4-6 Weeks Goal Progress: Progressing Goal 5:: LTG: Pt. to complete TUG with time less than 10seconds. Goal Time Frame: 4-6 Weeks Goal Progress: Goal Met Goal 6:: LTG: Pt. to negotiate steps with reciprocal pattern with use of 1 HR. Goal Time Frame: 4-6 Weeks Goal Progress: Goal Met Anticipated Interventions Anticipated Interventions Patient/Client Instruction: Educate patient on: Condition, Plan of Care, Risk Factors and Benefits of Fitness Program For the Purpose of:: To improve decision making, To facilitate caregiver knowledge, To improve self management, To prevent re-injury, To improve ability to perform tasks related to life management and To improve tolerance to ADL's Therapeutic Exercise to Include: Strength training, Power training, Flexibilty training, Gait and locomotor training, Passive ROM and Active ROM For the Purpose of:: To decrease pain, To increase ROM, To improve nutrient delivery to tissue, To increase oxygenation perfusion, To improve muscle performance and motor function, To improve ability to perform ADL's, To increase tolerance to activity/condition/position and To improve performance and independence with ADL's Cryotherapy (ice pack, ice massage): Yes Vasopneumatic device: Yes For the Purpose of:: To decrease pain, To decrease swelling/inflammation, To increase ROM, To improve nutrient delivery to tissue, To increase oxygenation perfusion and To improve muscle performance and motor function Re-Evaluation Ending Re-evaluation ending: Please do not hesitate to contact me at [phone] by phone or if you have questions or concerns regarding this new plan of care! Sincerely, Joe Pepe DPT
== END 2024-10-23 19:00 | disposition home or self-care (01) ==
LOC: PT 11:00
PROVIDERS: PCP Family Medicine; Referring Provider Orthopaedic Surgery; Visit Provider Orthopaedic Surgery
DX: Z96.652 Presence of left artificial knee joint (principal); M17.12 Unilateral primary osteoarthritis, left knee
CPT/HCPCS: 97016; 97110; 97140; 97161; 97530

== ENCOUNTER → 2025-06-04 | Outpatient (CLI) | payer OTHER, SELFPAY ==
--- NOTE | 2025-06-04 08:45 | RAD_ITS ---
PROCEDURE: ANKLE MIN 3 VIEWS 06/04/2025 REASON FOR EXAM: LEFT ANKLE PAIN TECHNIQUE: Procedure Code: RADANK Modality: DX Procedure: ANKLE MIN 3 VIEWS Laterality: Left ankle COMPARISON: None FINDINGS: Bones: Plantar calcaneal spur. Joints: Normal alignment. Mortise appears intact. No effusion. Soft tissues: Soft tissues are unremarkable. Other: RAD/Ankle min 3 Views IMPRESSION: Plantar calcaneal spur. No fracture or dislocation. Reading Location: [id number]
== END | disposition home or self-care (01) ==
PROVIDERS: PCP Family Medicine; Referring Provider Nurse Practitioner Family; Visit Provider Nurse Practitioner Family
DX: M25.572 Pain in left ankle and joints of left foot (principal)
CPT/HCPCS: 73610

== ENCOUNTER → 2025-06-15 | Outpatient (CLI) | payer OTHER, SELFPAY ==
--- NOTE | 2025-06-15 15:46 | RAD_ITS ---
PROCEDURE: ANKLE MIN 3 VIEWS 06/15/2025 REASON FOR EXAM: ANKLE INJURY TECHNIQUE: Procedure Code: RADANK Modality: DX Procedure: ANKLE MIN 3 VIEWS Laterality: Left COMPARISON: 06/04/2025 FINDINGS: No acute fracture or dislocation. Alignment is anatomic. Preserved visualized joint spaces. Small plantar calcaneal spur. Mild nonspecific generalized soft tissue swelling/edema about the ankle. RAD/Ankle min 3 Views IMPRESSION: No acute fracture or dislocation. Mild soft tissue swelling more pronounced over the lateral malleolus may reflec t ankle sprain. Reading Location: [id number]
--- OUTSIDE RECORDS SUMMARY | 2025-06-15 16:37 | XMS RPT_ITS | CCD ---
Author Organization [facility] Care Team Providers Care [employer] Banker Name Role Phone Lindsay LEE, Mildred Avery Unavailable Unavailable Dr. Josias Mckinney Primary Care Provider Dr. Josias Mckinney Referring Provider Dr. Marquis Crouch Attending Provider Unavailable Primary Care Provider UnavailDr. Josias Johnson Primary Care Provider Dr. Josias Mckinney Referring Provider Dr. Marquis Crouch Attending Provider Dr. Josias Mckinney Primary Care Provider Dr. Josias Mckinney Referring Provider Dr. Marquis Crouch Attending Provider Dr. Josias Mckinney Primary Care Provider Dr. Josias Mckinney Referring Provider Dr. Marquis Crouch Attending Provider Care Physician, No Primary Primary Care Provider Unavailable Dr. Pipo Christy Attending Provider Leticia Jimenez Attending Provider Unavailable FriendDr. Castro Attending Provider [phone] Dr. Matthew Monterroso Referring Provider [phone] Dr. Matthew Monterroso Other Provider Dr. Josias Mckinney Primary Care Provider Dr. Josias Mckinney Referring Provider Dr. Marquis Crouch Attending Provider Dr. Josias Mckinney Primary Care Provider Unavaila luis alberto Mckinney, Dr. Ferrara Referring Provider Unavailable Dr. Josias Mckinney Primary Care Provider Unavailjas Mckinney, Dr. Ferrara Referring Provider Unavailable Miko, Dr. Cho Attending Provider Dr. Corinne Johnson Primary Care Provider [phone] Dr. Corinne Johnson Referring Provider DANII Boothe Attending Provider Nancy PA, PA Jennifer Cuellar Attending Provider Alex SHETTY, Dr. Sun Primary Care Provider Heber SHETTY, Dr. Villeda Attending Provider [phone] Heber SHETTY, Dr. Villeda Referring Provider Alex SHETTY, Dr. Sun Referring Provider Neo [employer]CRoss[employer] Attending Provider Alex SHETTY, Dr. Sun Primary Care Physician Lay SHETTY, Dr. Carroll Attending Physician Assessment, Health Risk Attending Physician Unav ailable Miedel, Corinne Primary Care Unavailable Ronal Buck Attending Unavailable Ronal Buck Referring Unavailable Albert Boothe Attending Unavailable Albert Boothe Referring Unavailable Miedel, Corinne Primary Care Unavailable Malys, Jennifer Attending Unavailable Obinnays, Jennifer Referring Unavailable Miedel, Corinne Primary Care Unavailable Marquis Crouch Attending Unavailable Marquis Crouch Referring Unavailable Miedel, Corinne Primary Care Unavailable Miedel, Corinne Primary Care Unavailable Maqruis Crouch Referring Unavailable YaquelinsoMarquis Attending Unavailable Miedel, Corinne Attending Unavailable Miedel, Corinne Referring Unavailable Miedel, Corinne Primary Care Unavailable Rossana Larson Attending Unavailable Miedel, Corinne Referring Unavailable Miedel, Corinne Primary Care Unavailable Self Schedule, [facility] Attending Corinne Morales Referring Unavailable [facility] Primary Care Unavailable [facility] Primary Care Unavailable Albert Boothe Attending Unavailable [facility] Referring Unavailable Marquis Crouch Referring Unavailable Marquis Crouch Attending Unavailable [facility] Primary Care Unavailable Assessment, Health Risk Attending Unavaila luis alberto [facility] Primary Care Unavailable Roof [employer], Saúl Castorena Attending Unavailable Roof [employer], Saúl Casotrena Referring Unavailable [facility] Primary Care Unavailable Allergies Allergy Classification Reported Allergen(s) Allergy Type Date of Onset Reaction(s) Facility (7 sources) Morphine Drug Allergy 3 Nausea/Vom/Diar rosalva [facility] (1 source) Morphine Drug Allergy 5 [facility] Repository Medications Current Medications Medication Drug Class(es) Dates Sig (Normalized) Sig (Original) acetaminophen 500 mg oral tablet (2 sources) Start: 04-10-2024 take 1 tablet by mouth twice daily cholecalciferol 0.025 mg oral tablet (7 sources) Vitamin D Start: 12-25-2022 take 1 tablet by mouth once daily Mbaandwkgtlo-Hl-Bgjr-Mi nerals (Women's Daily Multivitamin) 18-0.4 mg Tablet (7 sources) Start: 12-25-2022 Start: 12-25-2022 Multivitamin-C e-Mifw-Kbtmnitc (Women's Daily Multivitamin) 18-0.4 mg Tablet Active 1 {tbl} PO DAILY December 25, 2022 12:00am Start: 12-25-2022 take 1 tablet by glenda th once daily Nrnpzmzvwvso-Df-Xcuj-Minerals (Women's D aily Multivitamin) 18-0.4 mg Tablet Active 1 TABLET PO DAILY December 24, 2022 11:00pm Start: 12-25-2022 take 1 tablet by glenda th once daily Dblqnyjjsdqc-Aw-Snfp-Minerals (Women's D aily Multivitamin) 18-0.4 mg Tablet Active 1 TABLET PO DAILY December 25, 2022 12:00am naproxen sodium 220 mg oral capsule (13 sources) Nonsteroidal Anti-inflammatory Drug Start: 07-21-2017 Providence-3 Fatty Acids 1,000 mg capsule (2 sources) Start: 01-17-2024 take 1 capsule by mouth once daily Start: 01-17-2024 take 1 capsule by mouth once d aily Providence-3 Fatty Acids 1,000 mg capsule Active 1000 mg PO DAILY January 17, 2024 12:00am omeprazole 20 mg delayed release oral capsule (20 sources) Proton Pump Inhibitor Start: 03-12-2021 take 1 capsule by mouth once daily Start: 07-21-2017 End: 04-06-2018 take 1 capsule by mouth once daily Omeprazole 20 mg capsule,delayed release(DR/EC) Discontinued 20 mg PO daily July 21, 2017 1:00am April 06, 2018 5:11pm PARoxetine hydrochloride 20 mg oral tablet (13 sources) Serotonin Reuptake Inhibitor Start: 02-02-2019 take 2 tablets by mouth once daily Start: 02-02-2019 take 40 mg by mouth once daily Paroxetine Hcl Active 40 MG PO DAILY February 02, 2019 12:00am Start: 02-02-2019 take 20 mg by mouth once daily Paroxetine Hcl Active 20 MG PO DAILY February 01, 2019 11:00pm Vitamin B Complex (5 sources) Start: 12-25-2022 take 1 capsule by mo [facility] once daily Vitamin B Complex Active 1 CAP PO DAILY December 24, 2022 11:00pm Start: 12-25-2022 take 1 capsule by mouth once d aily Vitamin B Complex Active 1 CAP PO DAILY December 25, 2022 12:00am Completed/Discontinued Medications Medication Drug Class(es) Dates Sig (Normalized) Sig (Original) acetaminophen 325 mg / HYDROcodone bitartrate 5 mg oral tablet (20 sources) Opioid Agonist Start: 09-21-2022 End: 02-01-2023 Hydrocodone-Acetami nophen 5-325 mg tablet Discontinued 1 {tbl} PO EVERY 4 HOURS NEEDED as needed for Pain 10 4 0 September 21, 2022 February 01, 2023 8:00am Contusion of rib on right side Contusion of right front wall of thorax, initial encounter Start: 09-21-2022 End: 02-01-2023 take 1 tablet by mouth every four hours as needed Hydrocodone-Acetaminophen Discontinued 1 TABLET PO EVERY 4 HOURS NEEDED 10 4 September 21, 2022 February 01, 2023 8:00am Start: 11-03-2021 End: 05-13-2022 Hydrocodone-Acetaminophen 1 TABLET tablet Discontinued 1 {tbl} PO EVERY 6 HOURS NEEDED as needed for Pain 12 3 0 November 08, 2021 May 13, 2022 9:15am Acute myofascial strain of lumbosacral region Strain of muscle, fascia and tendon of lower back, initial encounter Start: 11-03-2021 End: 05-13-2022 take 1 tablet by mouth every six hours as needed Hydrocodone-Acetaminophen Discontinued 1 TABLET PO EVERY 6 HOURS NEEDED 12 3 November 08, 2021 May 13, 2022 9:15am amoxicillin 875 mg / clavulanate 125 mg oral tablet (1 source) Penicillin-class Antibacterial Start: 12-23-2024 End: 12-30-2024 Amoxicillin-Pot Clavulanate 875-125 mg tablet Discontinued 1 {tbl} PO TWICE A DAY 14 7 0 December 23, 2024 12:00am December 29, 2024 12:00am December 30, 2024 12:14am chondroitin sulfates 400 mg / glucosamine hydrochloride 500 mg oral tablet (13 sources) Start: 07-21-2017 End: 04-06-2018 Glucosamine-Chondro itin (Cosamin Ds) 500-400 mg tablet Discontinued 2 {tbl} PO daily July 21, 2017 1:00am April 06, 2018 5:11pm diazePAM 5 mg oral tablet (12 sources) Benzodiazepine Start: 11-08-2021 End: 09-07-2022 take 1 tablet by mouth every eight hours as needed for muscle spasms Diazepam 5 MG tablet Discontinued 5 mg PO EVERY 8 HOURS as needed for Muscle Spasm November 08, 2021 12:00am September 07, 2022 9:35am diphenhydrAMINE citrate 38 mg / ibuprofen 200 mg oral tablet (13 sources) Histamine-1 Receptor Antagonist, Nonsteroidal Anti-inflammatory Drug Start: 07-21-2017 End: 07-21-2017 Ibuprofen-Diphenhyd ramine Cit (Ibuprofen Pm) 200-38 mg tablet Discontinued 1 NMA PO AT BEDTIME July 21, 2017 1:00am July 21, 2017 4:36pm ibuprofen 200 mg oral tablet (13 sources) Nonsteroidal Anti-inflammatory Drug Start: 07-21-2017 End: 07-21-2017 take 2 tablets by mouth twice daily Ibuprofen 200 mg tablet Discontinued 400 mg PO TWICE A DAY July 21, 2017 1:00am July 21, 2017 4:36pm Start: 07-21-2017 End: 07-21-2017 take 400 mg by mouth twice daily Ibuprofen Discontinued 400 MG PO TWICE A DAY July 21, 2017 1:00am July 21, 2017 4:36pm methylPREDNISolone acetate 40 mg/ml injectable suspension (9 sources) Corticosteroid Start: 03-12-2021 End: 03-12-2021 Depo-Medrol (methylprednisolone acetate) 40 mg/mL suspension for injection Discontinued 40 MG INTRAARTIC ONCE March 12, 2021 7:56am March 12, 2021 8:14am Start: 12-20-2019 End: 12-20-2019 Depo-Medrol (methylprednisol one acetate) 40 mg/mL suspension for injection Discontinued 40 MG INTRAARTIC ONCE December 20, 2019 3:53pm December 20, 2019 4:15pm Start: 09-29-2019 End: 09-29-2019 Depo-Medrol (methylprednisol one acetate) 40 mg/mL suspension for injection Discontinued 40 MG INTRAARTIC ONCE September 29, 2019 9:06am September 29, 2019 9:59am 24 hr metoprolol succinate 25 mg extended release oral tablet (20 sources) beta-Adrenergic Zara Start: 07-27-2017 End: 08-09-2019 take 1 tablet by mouth once daily Metoprolol Succinate (Toprol Xl) 25 mg tablet extended release 24 hr Discontinued 25 mg PO daily 24 06June 08, 2019 9:48am August 09, 2019 9:45am nitrofurantoin, macrocrystals 25 mg / nitrofurantoin, monohydrate 75 mg oral capsule (20 sources) Nitrofuran Antibacterial Start: 08-03-2024 End: 08-10-2024 take 1 capsule by mouth every twelve hours at mealtime Nitrofurantoin Monohyd/M-Cryst 100 mg capsule Discontinued 1 NMA PO Q12H 14 7 0 August 03, 2024 1:00am August 09, 2024 1:00am August 10, 2024 1:12am administer with a meal/food; swallow whole; do not open, crush, dissolve , or chew Start: 10-04-2023 End: 10-09-2023 take 1 capsule by mouth every twelve hours at mealtime Nitrofurantoin Monohyd/M-Cryst (Macrobid) 100 mg capsule Discontinued 100 mg PO Q12H 10 5 0 October 04, 2023 12:00am October 08, 2023 12:00am October 09, 2023 12:16am must administer with a meal/food Start: 08-05-2023 End: 08-12-2023 take 1 capsule by mouth every twelve hours at mealtime Nitrofurantoin Monohyd/M-Cryst 100 mg capsule Discontinued 1 NMA PO Q12H 14 7 0 August 05, 2023 1:00am August 11, 2023 1:00am August 12, 2023 1:04am administer with a meal/food; swallow whole; do not open, crush, dissolve , or chew Start: 04-06-2018 End: 02-02-2019 take 1 capsule by mouth twice daily at mealtime Nitrofurantoin Monohyd/M-Cryst 100 mg capsule Discontinued 100 mg PO TWICE A DAY 10 April 06, 2018 12:00am February 02, 2019 4:06pm must administer with a meal/food Drug Treatment Unknown - unknown (1 source) No information a vailable. phenazopyridine hydrochloride 200 mg oral tablet (5 sources) Start: 08-03-2024 End: 12-23-2024 take 1 tablet by mouth three times daily as needed for pain Phenazopyridine (Pyridium) 200 mg tablet Discontinued 200 mg PO THREE TIMES A DAY as needed for pain 7 0 August 03, 2024 1:00am December 23, 2024 9:44am Start: 08-05-2023 End: 01-17-2024 take 1 tablet by mouth three times daily at mealtime for pain Phenazopyridine (Pyridium) 100 mg tablet Discontinued 100 mg PO THREE TIMES A DAY as needed for pain 7 0 August 05, 2023 1:00am January 17, 2024 8:10am administer with a full glass of water after each meal predniSONE 20 mg oral tablet (13 sources) Start: 12-23-2024 End: 12-26-2024 take 2 tablets by mouth once daily at mealtime Prednisone 20 mg tablet Discontinued 40 mg PO DAILY 6 3 0 December 23, 2024 12:00am December 25, 2024 12:00am December 26, 2024 12:07am take with food Start: 11-08-2021 End: 05-13-2022 take 3 tablets by mouth once daily Prednisone 20 MG tablet Discontinued 60 mg PO DAILY 15 0 November 08, 2021 12:00am May 13, 2022 9:15am Start: 11-08-2021 End: 05-13-2022 take 60 mg by mouth once daily Prednisone Discontinued 60 MG PO DAILY November 08, 2021 12:00am May 13, 2022 9:15am triamcinolone acetonide 32 mg injection (6 sources) Corticosteroid Start: 09-24-2021 End: 09-24-2021 Zilretta (triamcinolone acetonide) 32 mg intra-articular suspension,extended Discontinued 32 MG INTRAARTIC ONCE September 24, 2021 8:47am September 24, 2021 9:25am Start: 06-12-2020 End: 06-12-2020 Zilretta (triamcinolone acet onide) 32 mg intra-articular suspension,extended Discontinued 32 MG INTRAARTIC ONCE June 12, 2020 2:31pm June 12, 2020 3:04pm Vitamin B Complex Capsule (2 sources) Start: 12-25-2022 End: 01-17-2024 Vitamin B Complex Capsule Discontinued 1 NMA PO DAILY December 25, 2022 12:00am January 17, 2024 8:10am Problems Active Problems Problem Classification Problem Date Documented Date Episodic/Chronic Cardiac dysrhythmias (14 sources) Ventricular premature beats; Translations: [Ventricular premature depolarization] Onset: 06-22-2017 06-22-2017 Chronic Cardiac dysrhythmias (14 sources) Palpitations; Translations: [Palpitations] Onset: 06-22-2017 06-22-2017 Episodic E Codes: Fall (8 sources) Fall; Translations: [Unspecified fall, initial encounter] 09-21-2022 Episodic Genitourinary symptoms and ill-defined conditions (1 source) Incontinence; Translations: [Unspecified urinary incontinence] Chronic Malaise and fatigue (13 sources) Fatigue; Translations: [Other fatigue] 02-02-2019 Episodic Osteoarthritis (20 sources) Osteoarthritis of left knee joint; Translations: [Unilateral primary osteoarthritis, left knee] Chronic Other ear and sense organ disorders (1 source) Cellulitis of right external ear; Translations: [Cellulitis of auricle of right ear] 12-23-2024 Episodic Other injuries and conditions due to external causes (1 source) Other specified injuries of thorax, initial encounter; Translations: [Contusion of rib on right side] 09-29-2022 Episodic Other nervous system disorders (1 source) Numbness and tingling sensation of skin; Translations: [Anesthesia of skin] Episodic Other non-traumatic joint disorders (9 sources) Effusion of joint of left knee; Translations: [Effusion, left knee] 05-13-2022 Episodic Other non-traumatic joint disorders (1 source) Effusion, left knee; Translations: [Effusion of joint, lower leg] Episodic Other non-traumatic joint disorders (2 sources) Pain in left ankle and joints of left foot; Translations: [Pain in left ankle and joints of left foot] Onset: 06-03-2025 Episodic Other nutritional; endocrine; and metabolic disorders (13 sources) Body mass index 30+ - obesity; Translations: [Body mass index (BMI) 39.0-39.9, adult] 06-27-2021 Chronic Other nutritional; endocrine; and metabolic disorders (13 sources) Obesity; Translations: [Obesity, unspecified] 03-12-2021 Chronic Other screening for suspected conditions (not mental disorders or infectious disease) (12 sources) Patient encounter status; Translations: [Encounter for screening for malignant neoplasm of colon] Onset: 07-18-2024 10-27-2022 Episodic Spondylosis; intervertebral disc disorders; other back problems (14 sources) Nerve root disorder; Translations: [Radiculopathy, site unspecified] Episodic Sprains and strains (13 sources) Lower back injury; Translations: [Strain of muscle, fascia and tendon of lower back, initial encounter] 11-11-2021 Episodic Superficial injury; contusion (7 sources) Contusion of rib; Translations: [Contusion of right front wall of thorax, initial encounter] 09-21-2022 Episodic Syncope (13 sources) Near syncope; Translations: [Syncope and collapse] 02-02-2019 Episodic Viral infection (13 sources) Disease caused by 2019-nCoV; Translations: [COVID-19] 06-27-2021 Episodic Past or Other Problems Problem Classification Problem Date Documented Da te Episodic/Chronic Genitourinary symptoms and ill-defined conditions (1 source) Dysuria; Translations: [Dysuria] Onset: 08-24-2024 Episodic Results Test Name Value Interpretation Reference Range Facility Ankle min 3 Viewson 06-04-20 25 Ankle min 3 Views [facility] [address] [place] [address] Ankle min 3 Views MR#: [id number] Acct: [id number] Name: JULIETA MENDES Rep #: [id number] : 1960 F 65 From: Cade best MD PCP: Dr. Corinne Johnson MD Status: REG CLI Study: Ankle min 3 Views Date of Exam: 06/04/25 Exam# [id number] Ordering Dr: Saúl Tate NP [employer] PROCEDURE: ANKLE MIN 3 VIEWS 06/04/2025 REASON FOR EXAM: LEFT ANKLE PAIN TECHNIQUE: Procedure Code: RADANK Modality: DX Procedure: ANKLE MIN 3 VIEWS Laterality: Left ankle COMPARISON: None FINDINGS: Bones: Plantar calcaneal spur. Joints: Normal alignment. Mortise appears intact. No effusion. Soft tissues: Soft tissues are unremarkable. Other: RAD/Ankle min 3 Views IMPRESSION: Plantar calcaneal spur. No fracture or dislocation. Reading Location: [id number] CC: [employer] Saúl Tate; Dr. Corinne Johnson MD Field Associate: Signed Normal [facility] Urgent Care Visit Reporton 1 08-03-2024 Urgent Care Visit Report [facility] [address], [address] [place] [address] OFFICE VISIT Date of Service: 06/03/25 MR#: [id number] Acct: [id number] Name: JULIETA MENDES Rep #: [id number] : 1960 Provider: [facility] Self Schedule Age/Sex: 65/F Location: [facility] Status: Signed Intake Vital Signs 08/22/24 10:01 06/03/25 10:38 Height 5 ft 5 in BP 112/64 Blood Pressure Location Lt brachial Position Sitting Pulse 93 Pulse Source Monitor Temp 98.3 F Temp Source Oral Pulse Oximetry (%) 95 Oxygen Delivery Method room air Intake Visit Reasons: CONCERN FOR L ANKLE SPRAIN Chief Complaint: Ankle Injury Accompanied by: Self Allergies morphine Adverse Reaction (Verified 06/03/25 10:31) Nausea/Vom/Diarrhea Medications ???Medication ???Instructions ???Recorded ???Confirmed ???Type naproxen sodium 220 mg capsule 220 mg PO PRN PRN Pain 07/21/17 History (Aleve) paroxetine HCl 20 mg tablet 40 mg PO DAILY 02/02/19 12/23/24 H istory metoprolol succinate 25 mg 25 mg PO QDAY #90 tabs 08/09/19 Rx tablet,extended release 24 hr (Toprol XL) omeprazole 20 mg capsule,delayed 20 mg PO DAILY 03/12/21 12/23/24 H istory release cholecalciferol (vitamin D3) 25 25 mcg PO DAILY 12/25/22 12/23/24 History mcg (1,000 unit) tablet (Vitamin D3) otdehvpyzjmw-Im-dvaq-m inerals 18 1 tab PO DAILY 12/25/22 12/23/24 H istory mg-0.4 mg tablet omega-3 fatty acids 1,000 mg 1,000 mg PO DAILY 01/17/24 5 History capsule coenzyme Q10 10 mg capsule 10 mg PO ONCE 06/03/25 06/03/25 Hi story cyanocobalamin (vitamin B-12) 1,000 mcg PO QDAY 06/03/25 5 History 1,000 mcg capsule Nurse's Note: Left ankle pain, sore for awhile. Yesterday tripped over the clear deodorant top, ankle went inwards. [place] better after putting shoes on. Taking Tylenol/IBU PRN, and icing. [facility] Medical History Wears contact lenses Alcohol use Arthritis Bladder disease Migraine headache Former smoker Shortness of breath on exertion Leg cramps History of echocardiogram Cardiology follow-up encounter Hyperlipidemia Depression Anxiety Degenerative disc disease, lumbar UTI (urinary tract infection) Fatigue Osteoarthritis Obesity GERD (gastroesophageal reflux disease) Near syncope Supraventricular tachycardia Premature ventricular beat Surgical History History of lumbar spinal fusion H/O excision of ganglion cyst History of dilatation and curettage History of History of total right knee replacement ( 06/2011) Family History Father CAD (coronary artery disease) ischemic cardiomyopathy Social History household members: spouse current occupational status: employed Smoking Status: Former smoker alcohol intake: current alcohol intake frequency: holidays/special occasions only HPI HPI Chief Complaint: Ankle Injury Details: JULIETA MENDES, is a 65 F who presents to the office today for left ankle pain and swelling. ROS Const Constitutional: No fatigue Resp Respiratory: No cough or shortness of breath Cardio Cardiology: No chest pain at rest, chest pain with exertion, leg pain with exertion, shortness of breath, dyspnea on exertion, lightheadedness, orthopnea or palpitations Gastro GI: No Black,tarry stools Musc Musculoskeletal: Positive for abnormal gait, joint pain and joint swelling; No leg pain with exertion Neuro Neurology: Positive for abnormal gait; No dizziness Endo Endocrine: No fatigue Exam Musc Musculoskeletal: Yes joint tenderness, joint warmth and decreased range of motion; No joint redness Extrem General: abnormal ROM, capillary refill normal, no clubbing, cyanosis or edema and edema Laterality: left (ankle) Severity: 1+ Other: Normal dorsalis pedis pulse at 2+ bilaterally. Coding Level of Care Code Off vis,est,level 2 Diagnoses Acute left ankle pain M25.572 Assessment and Plan Assessment and Plan (1) Acute left ankle pain: Status: Acute Plan: She does have some focal tenderness near her lateral ankle bone. She also notices discomfort when she rotates her ankle medially. She will proceed with x-ray to rule out fracture. We do not have x-ray today and that she will present to the hospital on 06/04/2025 and has completed. In the meantime, she will utilize ankle brace that she has at home. She will elevate her leg as well as apply ice. She utilize Tylenol ibuprofen for pain relief. If x-ray is negative for fracture, we will treat as ankle sprain/strain. If symptoms worsen or do not imp (more content not included)... Normal [facility] Absolute lymphocyte countOrd ered By: HEALTH ASSESSMENT on 03-13-2025 Lymphocytes Auto (Unsp spec) [#/Vol] 2.22 10*3/uL 0.83-4.51 [facility] Absolute neutrophil countOrd ered By: HEALTH ASSESSMENT on 03-13-2025 Neutrophils (Bld) [#/Vol] 3.1 10*3/uL 2.0-7.7 [facility] Absolute nucleated red blood cell countOrdered By: HEALTH ASSESSMENT on 03-13-2025 Nucleated RBC (Bld) [#/Vol] 0.00 10*3/uL 0-5 [facility] Anion gap in Serum or Plasma Ordered By: HEALTH ASSESSMENT on 03-13-2025 Anion gap [Moles/Vol] 11 mmol/L 5-15 [facility] BUN/creatinine ratioOrdered By: HEALTH ASSESSMENT on 03-13-2025 Urea nitrogen/Creatinine [Mass ratio] 27.6 mg/mg High 10-20 [facility] Bilirubin Test strip Ql (U)O rdered By: HEALTH ASSESSMENT on 03-13-2025 Bilirubin Ql (U) Negative Negative [facility] Bilirubin directOrdered By: HEALTH ASSESSMENT on 03-13-2025 Bilirubin.direct [Mass/Vol] 0.12 mg/dL 0.00-0.30 [facility] Bilirubin, totalOrdered By: HEALTH ASSESSMENT on 03-13-2025 Bilirubin [Mass/Vol] 0.31 mg/dL 0.00-1.30 [facility] Blood band neutrophil count as percentage of total leukocytesOrdered By: HEALTH ASSESSMENT on 03-13-2025 Band form neutrophils/100 WBC (Bld) 49.4 % 47-70 [facility] CBC, Employeeon 03-13-2025 Absolute Lymph 2.22 X10 3/uL Normal 0.83-4.51 [facility] Comment on above: Performed By: #### L 400.0100, L500.2900, L100.0200 #### [facility] [address] [place], [address] Absolute Neut 3.1 X10 3/uL Normal 2.0-7.7 [facility] Comment on above: Performed By: #### L 400.0100, L500.2900, L100.0200 #### [facility] [address] [place], [address] Basophils/100 WBC (Bld) 0.3 % Normal 0-1 [facility] Comment on above: Performed By: #### L 400.0100, L500.2900, L100.0200 #### [facility] [address] [place], [address] Eosinophils/100 WBC (Bld) 3.5 % Normal 0-5 [facility] Comment on above: Performed By: #### L 400.0100, L500.2900, L100.0200 #### [facility] [address] [place], [address] Erythrocyte distribution width (RBC) [Ratio] 13.5 % Normal 11.6-14.6 [facility] Comment on above: Performed By: #### L 400.0100, L500.2900, L100.0200 #### [facility] [address] [place], [address] Hematocrit (Bld) [Volume fraction] 42.0 % Normal 37-47 [facility] Comment on above: Performed By: #### L 400.0100, L500.2900, L100.0200 #### [facility] [address] [place], [address] Hemoglobin (Bld) [Mass/Vol] 13.8 g/dL Normal 12.0-15.0 [facility] Comment on above: Performed By: #### L 400.0100, L500.2900, L100.0200 #### [facility] [address] [place], [address] Lymphocytes/100 WBC (Bld) 35.0 % Normal 19-41 [facility] Comment on above: Performed By: #### L 400.0100, L500.2900, L100.0200 #### [facility] [address] [place], [address] MCH (RBC) [Entitic mass] 29.2 pg Normal 27.0-32.0 [facility] Comment on above: Performed By: #### L 400.0100, L500.2900, L100.0200 #### [facility] [address] [place], [address] MCHC (RBC) [Mass/Vol] 32.9 g/dL Normal 32-36 [facility] Comment on above: Performed By: #### L 400.0100, L500.2900, L100.0200 #### [facility] [address] [place], [address] MCV (RBC) [Entitic vol] 88.8 fL Normal 81-99 [facility] Comment on above: Performed By: #### L 400.0100, L500.2900, L100.0200 #### [facility] [address] [place], [address] Monocytes/100 WBC (Bld) 11.5 % High 0-10 [facility] Comment on above: Performed By: #### L 400.0100, L500.2900, L100.0200 #### [facility] [address] [place], [address] Neutrophils/100 WBC (Bld) 49.4 % Normal 47-70 [facility] Comment on above: Performed By: #### L 400.0100, L500.2900, L100.0200 #### [facility] [address] [place], [address] NRBC # 0.00 10 3/uL Normal 0-5 [facility] Comment on above: Performed By: #### L 400.0100, L500.2900, L100.0200 #### [facility] [address] [place], [address] Nucleated RBC (Bld) [#/Vol] 0 10*3/uL Normal 0-5 [facility] Comment on above: Performed By: #### L 400.0100, L500.2900, L100.0200 #### [facility] [address] [place], [address] Platelet mean volume (Bld) [Entitic vol] 9.6 fL Normal 6.2-12.0 [facility] Comment on above: Performed By: #### L 400.0100, L500.2900, L100.0200 #### [facility] [address] [place], [address] Platelets (Bld) [#/Vol] 303 10*3/uL Normal 150-450 [facility] Comment on above: Performed By: #### L 400.0100, L500.2900, L100.0200 #### [facility] [address] [place], [address] RBC (Bld) [#/Vol] 4.73 10*6/uL Normal 4.2-5.4 [facility] Comment on above: Performed By: #### L 400.0100, L500.2900, L100.0200 #### [facility] [address] [place], [address] RDW SD 44.2 fl High 35.1-43.9 [facility] Comment on above: Performed By: #### L 400.0100, L500.2900, L100.0200 #### [facility] [address] [place], [address] WBC (Bld) [#/Vol] 6.3 10*3/uL Normal 4.4-11.0 [facility] Comment on above: Performed By: #### L 400.0100, L500.2900, L100.0200 #### [facility] [address] [place], [address] Calculated very low density lipoprotein (VLDL) cholesterol measurementOrdered By: [facility] ASSESSMENT on 03-13-2025 Calculated very low density lipoprotein (VLDL) cholesterol measurement 20 mg/dL 5-40 [facility] Carbon dioxide, total [Moles /volume] in Central venous bloodOrdered By: HEALTH ASSESSMENT on 03-13-2025 CO2 [Moles/Vol] 24.5 mmol/L 21.0-32.0 [facility] Chloride assayOrdered By: HE ALTH ASSESSMENT on 03-13-2025 Chloride [Moles/Vol] 104 mmol/L 98-108 [facility] Employee Profileon LDH 290 U/L High 84-246 [facility] Comment on above: Performed By: #### L 400.0100, L500.2900, L100.0200 #### [facility] [address] [place], [address] Phosphate [Mass/Vol] 3.1 mg/dL Normal 2.7-4.5 [facility] Comment on above: Performed By: #### L 400.0100, L500.2900, L100.0200 #### [facility] [address] [place], [address] URIC 4.2 mg/dL Normal 2.6-6.0 [facility] Comment on above: Result Comment: The drugs N-Acetylcysteine and Metamizole may falsely depress this assay. Performed By: #### L 400.0100, L500.2900, L100.0200 #### [facility] [address] [place], [address] Erythrocyte distribution wid th ratioOrdered By: HEALTH ASSESSMENT on 03-13-2025 Erythrocyte distribution width (RBC) [Ratio] 13.5 % 11.6-14.6 [facility] Erythrocyte distribution wid th standard deviationOrdered By: HEALTH ASSESSMENT on 03-13-2025 Erythrocyte distribution width (RBC) [Ratio] 44.2 fl High 35.1-43.9 [facility] Glomerular filtration rate ( GFR) estimation/1.73 sq m using serum, plasma, or whole bOrdered By: HEALTH ASSESSMENT on 03-13-2025 GFR/1.73 sq M.predicted among non-blacks MDRD (S/P/Bld) [Vol rate/Area] 102 mL/min/{1.73_m2} >60 [facility] Comment on above: mL/min/1.73m2 CKD-EP I Creatinine Equation (2020) Hematocrit Auto (Bld) [Volum e fraction]Ordered By: HEALTH ASSESSMENT on 03-13-2025 Hematocrit (Bld) [Volume fraction] 42.0 % 37-47 [facility] Hemoglobin measurementOrdere d By: HEALTH ASSESSMENT on 03-13-2025 Hemoglobin (Bld) [Mass/Vol] 13.8 g/dL 12.0-15.0 [facility] Ketones Test strip Ql (U)Ord ered By: HEALTH ASSESSMENT on 03-13-2025 Ketones Ql (U) Negative Negative [facility] LDL calc ser/plasOrdered By: HEALTH ASSESSMENT on 03-13-2025 Cholesterol in LDL [Mass/Vol] 128 mg/dL [facility] Comment on above: Fsppznfwdq=794-819 m g/dL & Higher Mygu=871 mg/dL or greaterFriedwald Equation for LDL-C Laboratory - Chemistry and C hemistry - challengeOrdered By: HEALTH ASSESSMENT on 03-13-2025 AST [Catalytic activity/Vol] 26 U/L <32 [facility] Lactate dehydrogenase (LDH) measurementOrdered By: HEALTH ASSESSMENT on 03-13-2025 LDH [Catalytic activity/Vol] 290 U/L High 84-246 [facility] MCV (mean corpuscular volume ) determinationOrdered By: HEALTH ASSESSMENT on 03-13-2025 MCV (RBC) [Entitic vol] 88.8 fL 81-99 [facility] Mean corpuscular hemoglobin (MCH) determinationOrdered By: HEALTH ASSESSMENT on 03-13-2025 MCH (RBC) [Entitic mass] 29.2 pg 27.0-32.0 [facility] Mean corpuscular hemoglobin concentration (MCHC) determinationOrdered By: HEALTH ASSESSMENT on 03-13-2025 MCHC (RBC) [Mass/Vol] 32.9 g/dL 32-36 [facility] Mean platelet volume determi nationOrdered By: HEALTH ASSESSMENT on 03-13-2025 Platelet mean volume (Bld) [Entitic vol] 9.6 fL 6.2-12.0 [facility] Nitrite Test strip Ql (U)Ord ered By: HEALTH ASSESSMENT on 03-13-2025 Nitrite Ql (U) Negative Negative [facility] Nucleated red blood cell per centageOrdered By: HEALTH ASSESSMENT on 03-13-2025 Nucleated RBC/100 WBC (Bld) [Ratio] 0 % 0-5 [facility] Platelet countOrdered By: HE ALTH ASSESSMENT on 03-13-2025 Platelets (Bld) [#/Vol] 303 10*3/uL 150-450 [facility] Potassium measurement (mass/ volume)Ordered By: HEALTH ASSESSMENT on 03-13-2025 Potassium (Unsp spec) [Mass/Vol] 4.1 mmol/L 3.3-5.1 [facility] Protein Test strip Ql (U)Ord ered By: HEALTH ASSESSMENT on 03-13-2025 Protein Ql (U) 30 mg/dl High Negative [facility] RBC Auto (Bld) [#/Vol]Ordere d By: HEALTH ASSESSMENT on 03-13-2025 RBC (Bld) [#/Vol] 4.73 10*6/uL 4.2-5.4 [facility] Screening total cholesterol/ high density lipoprotein (HDL) cholesterol ratioOrdered By: HEALTH ASSESSMENT on 03-13-2025 Cholesterol.total/Choles terol in HDL [Mass ratio] 3.24 {ratio} [facility] Serum creatinine measurement (mass/volume)Ordered By: HEALTH ASSESSMENT on 03-13-2025 Creatinine [Mass/Vol] 0.56 mg/dL Low 0.70-1.20 [facility] Serum globulin measurementOr dered By: HEALTH ASSESSMENT on 03-13-2025 Globulin (S) [Mass/Vol] 3.4 g/dL 2.2-4.2 [facility] Serum glucose measurement (m ass/volume)Ordered By: HEALTH ASSESSMENT on 03-13-2025 Glucose [Mass/Vol] 91 mg/dL 70-99 [facility] Serum or plasma alanine anand otransferase (ALT) measurementOrdered By: HEALTH ASSESSMENT on 03-13-2025 ALT [Catalytic activity/Vol] 20 U/L <35 [facility] Serum or plasma albumin fahad urement (mass/volume)Ordered By: HEALTH ASSESSMENT on 03-13-2025 Albumin [Mass/Vol] 4.0 g/dL 3.4-4.8 [facility] Serum or plasma albumin/glob ulin mass ratioOrdered By: HEALTH ASSESSMENT on 03-13-2025 Albumin/Globulin [Mass ratio] 1.2 {ratio} 0.9-2.4 [facility] Serum or plasma alkaline [place] sphatase measurementOrdered By: HEALTH ASSESSMENT on 03-13-2025 ALP [Catalytic activity/Vol] 92 U/L 35-104 [facility] Serum or plasma calcium fahad urement (mass/volume)Ordered By: HEALTH ASSESSMENT on 03-13-2025 Calcium [Mass/Vol] 9.2 mg/dL 7.6-11.0 [facility] Serum or plasma cholesterol in HDL measurement (mass/volume)Ordered By: HEALTH ASSESSMENT on 03-13-2025 Cholesterol in HDL [Mass/Vol] 66 mg/dL >40 [facility] Comment on above: National Cholesterol Education Program (NCEP) guidelines:<40 mg/dL: Low HDL-cholesterol (major risk factor for CHD)>= 60 mg/dL: High HDL-cholesterol (negative risk factor for CHD)HDL-cholesterol is affected by a number of factors, e.g. smoking, exercise, hormones, sex and age. Serum or plasma cholesterol measurement (mass/volume)Ordered By: HEALTH ASSESSMENT on 03-13-2025 Cholesterol [Mass/Vol] 215 mg/dL High <201 [facility] Comment on above: Cholesterol level, D esirable <200 mg/dLBorderline high cholesterol 200-239 mg/dLHigh cholesterol >=240 mg/dLRecommendations of the NCEP Adult Treatment Panel for the following risk-cutoff thresholds for the [place] population. Serum or plasma urea nitroge n measurement (mass/volume)Ordered By: HEALTH ASSESSMENT on 03-13-2025 Urea nitrogen [Mass/Vol] 15 mg/dL 4-19 [facility] Serum or plasma uric acid me asurement (mass/volume)Ordered By: HEALTH ASSESSMENT on 03-13-2025 Urate [Mass/Vol] 4.2 mg/dL 2.6-6.0 [facility] Comment on above: The drugs N-Acetylcy steine and Metamizole may falsely depress this assay. Sodium levelOrdered By: HEAL TH ASSESSMENT on 03-13-2025 Sodium [Moles/Vol] 139 mmol/L 133-145 [facility] Total proteinOrdered By: HEA LTH ASSESSMENT on 03-13-2025 Protein [Mass/Vol] 7.5 g/dL 5.9-8.4 [facility] Triglycerides measurementOrd ered By: HEALTH ASSESSMENT on 03-13-2025 Triglyceride [Mass/Vol] 102 mg/dL <199 [facility] Comment on above: The drugs N-Acetylcy steine and Metamizole may falsely depress this assay. Normal range: <150 mg/dLBorderline High: 150-199 mg/dLHigh: 200-499 mg/dLVery High: >500 mg/dL Urinalysis, Employeeon 03-13 BILIRUBIN URINE Negative Normal Negative [facility] Comment on above: Order Comment: CLEAN CATCH Performed By: #### L 400.0100, L500.2900, L100.0200 #### [facility] [address] [place], [address] Clarity (U) Clear Normal Clear [facility] Comment on above: Order Comment: CLEAN CATCH Performed By: #### L 400.0100, L500.2900, L100.0200 #### [facility] [address] [place], [address] Color (U) Yellow Normal Yellow [facility] Comment on above: Order Comment: CLEAN CATCH Performed By: #### L 400.0100, L500.2900, L100.0200 #### [facility] [address] [place], [address] GLUCOSE, UR Normal Normal Normal [facility] Comment on above: Order Comment: CLEAN CATCH Performed By: #### L 400.0100, L500.2900, L100.0200 #### [facility] [address] [place], [address] KETONE UR Negative Normal Negative [facility] Comment on above: Order Comment: CLEAN CATCH Performed By: #### L 400.0100, L500.2900, L100.0200 #### [facility] [address] [place], [address] LEUK ESTERASE 25 /ul Abnormal Negative [facility] Comment on above: Order Comment: CLEAN CATCH Performed By: #### L 400.0100, L500.2900, L100.0200 #### [facility] [address] [place], [address] Nitrite Ql (U) Negative Normal Negative [facility] Comment on above: Order Comment: CLEAN CATCH Performed By: #### L 400.0100, L500.2900, L100.0200 #### [facility] [address] [place], [address] OCCULT BLOOD-UR 25 /ul Abnormal Negative [facility] Comment on above: Order Comment: CLEAN CATCH Performed By: #### L 400.0100, L500.2900, L100.0200 #### [facility] [address] [place], [address] pH UR 7.0 Normal 5.0 - 8.0 [facility] Comment on above: Order Comment: CLEAN CATCH Performed By: #### L 400.0100, L500.2900, L100.0200 #### [facility] [address] [place], [address] PROT DIPSTX 30 mg/dl Abnormal Negative [facility] Comment on above: Order Comment: CLEAN CATCH Performed By: #### L 400.0100, L500.2900, L100.0200 #### [facility] [address] [place], [address] SP.GR. DIPSTX 1.010 Normal 1.002-1.030 [facility] Comment on above: Order Comment: CLEAN CATCH Performed By: #### L 400.0100, L500.2900, L100.0200 #### [facility] [address] [place], [address] UROBILI Normal Normal Normal [facility] Comment on above: Order Comment: CLEAN CATCH Performed By: #### L 400.0100, L500.2900, L100.0200 #### [facility] [address] [place], [address] Urine clarityOrdered By: HEA LT ASSESSMENT on 03-13-2025 Clarity (U) Clear Clear [facility] Urine color determinationOrd ered By: HEALTH ASSESSMENT on 03-13-2025 Color (U) Yellow Yellow [facility] Urine glucose detectionOrder ed By: HEALTH ASSESSMENT on 03-13-2025 Glucose Ql (U) Normal mg/dl Normal [facility] Urine leukocyte esterase det ection by dipstickOrdered By: HEALTH ASSESSMENT on 03-13-2025 Leukocyte esterase Test strip Ql (U) 25 /ul High Negative [facility] Urine pHOrdered By: HEALTH A SSESSMENT on 03-13-2025 pH (U) 7.0 [pH] 5.0 - 8.0 [facility] Urine specific gravity measu rementOrdered By: HEALTH ASSESSMENT on 03-13-2025 Specific gravity (U) [Rel density] 1.010 1.002-1.030 [facility] Urine urobilinogen measureme ntOrdered By: HEALTH ASSESSMENT on 03-13-2025 Urobilinogen Ql (U) Normal mg/dl Normal [facility] White blood cell (WBC) count Ordered By: HEALTH ASSESSMENT on 03-13-2025 WBC (Bld) [#/Vol] 6.3 10*3/uL 4.4-11.0 [facility] Urgent Care Visit Reporton 0 12-23-2024 Urgent Care Visit Report [facility] [address] , [address] [place] [address] OFFICE VISIT Date of Service: 12/23/24 MR#: [id number] Acct: [id number] Name: JULIETA MENDES Rep #: [id number] : 1960 Provider: RONALD De Los Santos/Sex: 64/F Location: [facility] Status: Signed Intake Vital Signs 08/22/24 10:01 12/23/24 09:28 Height 5 ft 5 in BP 128/72 H Blood Pressure Location Rt brachial Position Sitting Respiration 16 Pulse 65 Pulse Source NIBP Temp 98.5 F Temp Source Oral Pulse Oximetry (%) 97 Oxygen Delivery Method room air Intake Visit Reasons: R EAR PAIN Chief Complaint: right ear pain Otologist Required: No Is patient in pain?: Yes Allergies morphine Adverse Reaction (Verified 12/23/24 09:43) Nausea/Vom/Diarrhea Medications ???Medication ???Instructions ???Recorded ???Confirmed ???Type naproxen sodium 220 mg capsule 220 mg PO PRN PRN Pain 07/21/17 History (Aleve) paroxetine HCl 20 mg tablet 40 mg PO DAILY 02/02/19 12/23/24 H istory metoprolol succinate 25 mg 25 mg PO QDAY #90 tabs 08/09/19 Rx tablet,extended release 24 hr (Toprol XL) omeprazole 20 mg capsule,delayed 20 mg PO DAILY 03/12/21 12/23/24 H istory release cholecalciferol (vitamin D3) 25 25 mcg PO DAILY 12/25/22 12/23/24 History mcg (1,000 unit) tablet (Vitamin D3) dhimawkfbike-Hb-orud-m inerals 18 1 tab PO DAILY 12/25/22 12/23/24 H istory mg-0.4 mg tablet omega-3 fatty acids 1,000 mg 1,000 mg PO DAILY 01/17/24 5 History capsule acetaminophen 500 mg tablet 500 mg PO BID 04/10/24 12/23/24 Hi story (Tylenol Extra Strength) amoxicillin 875 mg-potassium 1 tab PO BID 7 days #14 tabs 12/2312/23/24 Rx clavulanate 125 mg tablet prednisone 20 mg tablet 40 mg (2 x 20 mg) PO DAILY 3 days 12/23/24 12/23/24 Rx #6 tabs Is last menstrual period known: No Post menopausal: Yes Patient : No Have you fallen in the past year?: No Nurse's Note: right ear pain/swelling/redness x 24 hours. decreased hearing as well. denies fever, drainage, blood. [facility] Medical History Wears contact lenses Alcohol use Arthritis Bladder disease Migraine headache Former smoker Shortness of breath on exertion Leg cramps History of echocardiogram Cardiology follow-up encounter Hyperlipidemia Depression Anxiety Degenerative disc disease, lumbar UTI (urinary tract infection) Fatigue Osteoarthritis Obesity GERD (gastroesophageal reflux disease) Near syncope Supraventricular tachycardia Premature ventricular beat Surgical History History of lumbar spinal fusion H/O excision of ganglion cyst History of dilatation and curettage History of History of total right knee replacement ( 06/2011) Family History Father CAD (coronary artery disease) ischemic cardiomyopathy Social History household members: spouse current occupational status: employed Smoking Status: Former smoker alcohol intake: current alcohol intake frequency: holidays/special occasions only HPI HPI Chief Complaint: right ear pain Details: JULIETA MENDES, is a 64 F who presents to the office today for right ear pain -sx started yesterday- woke up yesterday morning felt angry, red and spongy -very uncomfortable, effecting hearing-like in a tunnel- felt swollen into check/jaw -no fever or chills -no drainage -tried so far tylenol, allergy pill -no recent travel or swimming- no bug bite -one part of ear feels a little itchy ROS Const Constitutional: Positive for other (ROS negative x6 except what was placed in HPI) Exam Const General: cooperative, comfortable and no acute distress Orientation: alert, awake and oriented x3 HENMT Head: normal to inspection and normocephalic Ears: hearing grossly normal bilaterally and TM's normal bilaterally Nose: external nose normal Face and sinus: normal facial exam, sinuses nontender and face symmetric Mouth: oral mucosae normal, lip normal, tongue normal, oropharynx normal and moist mucous membranes Throat: posterior oropharynx normal, tonsils normal and uvula midline Other: -right outer ear with moderate amount of swelling, bright pink and warm compared to the left- TM normal- no crusting or drainage noted -swelling extends to the front of the ear to cheek/jaw -pain with light touch Neck Neck: normal visual inspection, full ROM and no lymphadenopathy Resp Effort Inspection: normal respiratory effort, able to speak in complete sentences and symmetric chest movement Auscultation: Bi (more content not included)... Normal [facility] Re-Evaluation - PT (1)on Re-Evaluation - PT (1) [facility] [address] [place] [address] / REEVALUATION / MEDICARE RECERTIFICATION PHYSICAL THERAPY MR#: [id number] Acct: [id number] Name: JULIETA MENDES Rep #: [id number] : 1960 64 From: Joe Pepe DPT Referring Dr.: Ronal Buck MD Status:REG RCR Insurance: [employer]/[facility] SELF PAY INSURANCE Re-Evaluation Intro: Dr. Ronal Buck MD, It has been my pleasure to treat JULIETA MENDES over the last 33 visits for L TKA, DOS: 07/03/24. Please see the progress note below for an update on the physical therapy plan of care! Subjective Subjective: Pt reports overall doing well. She is back to work, but does have some issues with this. She reports increased tightness and soreness by the end of the day. Objective Objective/Function: ROM: 0-0-110 AROM, PROM 0-0-112deg. MMT: RLE: knee ext 52#, flexion 47.9# LLE: ext: 54.3#, flexion 38.2# GAIT: Pt. ambulates without AD, good knee flexion and extension. She does continue to have increased lateral hip sway, but is better with increased focus. STAIRS: Pt. is able to complete with 1 HR with good tolerance. TU.6sec no AD 6 MWT: 1157 no AD Julieta is overall doing well. I would like her knee flexion ROM to be improved to 120deg range. Plan Plan Plan: I am extending her for 3 weeks until seeing physician. Work on knee flexion ROM, gait mechanics and stair negotiation without HR. Balance/Gait/Functiona l tests Balance/Special Test Scores Lower Extremity Functional Score: 62 TUG Test Time Seconds: 6.6 Tug Test: <10 sec.=free mobile 30 Second Chair Rise Test Seconds: 14 6 Minute Walk Test: 1416 without AD. WOMAC Total Score: 19 WOMAC Percentage: 80.2100 Goals Goals Goal 1:: LTG: PT. to be I with HEP. Goal Time Frame: 4-6 Weeks Goal Progress: Goal Met Goal 2:: LTG: Pt. to have symmetrical BLE strength. Goal Time Frame: 4-6 Weeks Goal Progress: Goal Met Goal 3:: STG: Pt. to have symmetrical girth between B knees indicating reduced L knee edema. Goal Time Frame: 2-4 Weeks Goal Progress: Goal Met Goal 4:: LTG: PT. to have L knee ROM improved to 0-0-120deg allowing for increased functional mobility. Goal Time Frame: 4-6 Weeks Goal Progress: Progressing Goal 5:: LTG: Pt. to complete TUG with time less than 10seconds. Goal Time Frame: 4-6 Weeks Goal Progress: Goal Met Goal 6:: LTG: Pt. to negotiate steps with reciprocal pattern with use of 1 HR. Goal Time Frame: 4-6 Weeks Goal Progress: Goal Met Anticipated Interventions Anticipated Interventions Patient/Client Instruction: Educate patient on: Condition, Plan of Care, Risk Factors and Benefits of Fitness Program For the Purpose of:: To improve decision making, To facilitate caregiver knowledge, To improve self management, To prevent re-injury, To improve ability to perform tasks related to life management and To improve tolerance to ADL's Therapeutic Exercise to Include: Strength training, Power training, Flexibilty training, Gait and locomotor training, Passive ROM and Active ROM For the Purpose of:: To decrease pain, To increase ROM, To improve nutrient delivery to tissue, To increase oxygenation perfusion, To improve muscle performance and motor function, To improve ability to perform ADL's, To increase tolerance to activity/condition/pos ition and To improve performance and independence with ADL's Cryotherapy (ice pack, ice massage): Yes Vasopneumatic device: Yes For the Purpose of:: To decrease pain, To decrease swelling/inflammation, To increase ROM, To improve nutrient delivery to tissue, To increase oxygenation perfusion and To improve muscle performance and motor function Re-Evaluation Ending Re-evaluation ending: Please do not hesitate to contact me at [phone] by phone or if you have questions or concerns regarding this new plan of care! Sincerely, Joe Pepe, DPT 10/02/24 [id number] CC: Dr. Corinne Johnson MD; Ronal Buck MD CLS Signed For Medicare only, by signing this I certify the plan of care. Physicians Signature Date Normal [facility] Re-Evaluation - PT (1)on Re-Evaluation - PT (1) [facility] [address] [place] [address] / REEVALUATION / MEDICARE RECERTIFICATION PHYSICAL THERAPY MR#: [id number] Acct: [id number] Name: JULIETA MENDES Rep #: [id number] : 1960 64 From: Joe Pepe DPT Referring Dr.: Ronal Buck MD Status:REG RCR Insurance: [employer]/[facility] SELF PAY INSURANCE Re-Evaluation Intro: Dr. Ronal Buck MD, It has been my pleasure to treat JULIETA MENDES over the last 22 visits for L TKA, DOS: 07/03/24. Please see the progress note below for an update on the physical therapy plan of care! Subjective Subjective: Pt. reports overall doing much better. Pt. reports being 75% better overall. Pt. feels like her leg is still weak. She has use railings with stairs. Objective Objective/Function: ROM: 0-0-110deg. PROM 0-0-112deg. MMT: LLE: hip: flexion 36.8#, abd 34.0#; knee ext: 31.4#, flexion 28.7# RLE: hip: flexion 41.3#, abd 41.0#; knee: ext 36.0#, flexion 37.3# GAIT: pt. continues to have a bit of lateral hip sway with gait. No marked pain, but does have postural sway. She does have some hip weakness She is able get in and out of the car without issue. 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 I would really like her to have increased symmetrical strength. girth measurements: mid patella Left 4cm greater than R Plan Plan Plan: Cont to work on strengthening, functional strength and gait techniques to reduce lateral hip sway and increase endurance. Focus on quads, glutes, glute medius and HS strengthening. Balance/Gait/Functiona l tests Balance/Special Test Scores Lower Extremity Functional Score: 57 TUG Test Time Seconds: 6.9 Tug Test: <20 sec.=mostly independent 30 Second Chair Rise Test Seconds: 12 6 Minute Walk Test: 1416 without AD. WOMAC Total Score: 19 WOMAC Percentage: 80.2100 Goals Goals Goal 1:: LTG: PT. to be I with HEP. Goal Time Frame: 4-6 Weeks Goal Progress: Goal Met Goal 2:: LTG: Pt. to have symmetrical BLE strength. Goal Time Frame: 4-6 Weeks Goal Progress: Progressing Goal 3:: STG: Pt. to have symmetrical girth between B knees indicating reduced L knee edema. Goal Time Frame: 2-4 Weeks Goal Progress: Progressing Goal 4:: LTG: PT. to have L knee ROM improved to 0-0-120deg allowing for increased functional mobility. Goal Time Frame: 4-6 Weeks Goal Progress: Progressing Goal 5:: LTG: Pt. to complete TUG with time less than 10seconds. Goal Time Frame: 4-6 Weeks Goal Progress: Goal Met Goal 6:: LTG: Pt. to negotiate steps with reciprocal pattern with use of 1 HR. Goal Time Frame: 4-6 Weeks Goal Progress: Progressing Anticipated Interventions Anticipated Interventions Patient/Client Instruction: Educate patient on: Condition, Plan of Care, Risk Factors and Benefits of Fitness Program For the Purpose of:: To improve decision making, To facilitate caregiver knowledge, To improve self management, To prevent re-injury, To improve ability to perform tasks related to life management and To improve tolerance to ADL's Therapeutic Exercise to Include: Strength training, Power training, Flexibilty training, Gait and locomotor training, Passive ROM and Active ROM For the Purpose of:: To decrease pain, To increase ROM, To improve nutrient delivery to tissue, To increase oxygenation perfusion, To improve muscle performance and motor function, To improve ability to perform ADL's, To increase tolerance to activity/condition/pos ition and To improve performance and independence with ADL's Cryotherapy (ice pack, ice massage): Yes Vasopneumatic device: Yes For the Purpose of:: To decrease pain, To decrease swelling/inflammation, To increase ROM, To improve nutrient delivery to tissue, To increase oxygenation perfusion and To improve muscle performance and motor function Re-Evaluation Ending Re-evaluation ending: Please do not hesitate to contact me at [phone] by phone or if you have questions or concerns regarding this new plan of care! Sincerely, Joe Pepe, DPT 09/01/24 1452 CC: Dr. Corinne Johnson MD; Ronal Buck MD CLS Signed For Medicare only, by signing this I certify the plan of care. Physicians Signature Date Normal [facility] Urine Cultureon 08-05-2024 URC Presumptive E. coli [place] Count >100,000 Presumptive E. coli: REACTION Ampicillin Islt JESICA >=32 Ampicillin+Sulbac Islt JESICA 16 I Cefepime Islt JESICA <=0.12 S cefTRIAXone Islt JESICA <=0.25 S Ciprofloxacin Islt JESICA <=0.06 S B-Lactamase Extended Susc Islt NEG Gentamicin Islt JESICA <=1 S levoFLOXacin Islt JESICA <=0.12 S Meropenem Islt JESICA <=0.25 S Nitrofurantoin Islt JESICA <=16 S Pip+Tazo Islt JESICA <=4 S TMP SMX Islt JESICA <=20 S Normal [facility] Comment on above: Performed By: #### M [id number] #### [facility] [address] [place], [place], [address] Urgent Care Visit Reporton 0 08-03-2024 Urgent Care Visit Report [facility] [address], [address] [place] [address] OFFICE VISIT Date of Service: 08/03/24 MR#: [id number] Acct: [id number] Name: JULIETA MENDES Rep #: [id number] : 1960 Provider: DANII Anthony Age/Sex: 64/F Location: [facility] Status: Signed Intake Vital Signs 07/31/24 09:55 08/03/24 08:21 08/03/24 08:28 Height 5 ft 5 in 5 ft 5 in 5 ft 5 in Weight: 254 lb 6 oz BMI 42.3 BP 120/60 Position Sitting Pulse 75 Temp 98.3 F Temp Source Oral Pulse Oximetry (%) 98 Oxygen Delivery Method room air Intake Visit Reasons: Urinary tract infection Chief Complaint: urinary burning/ frequency Accompanied by: Self Allergies morphine Adverse Reaction (Verified 04/10/24 09:04) Nausea/Vom/Diarrhea Medications ???Medication ???Instructions ???Recorded ???Confirmed ???Type naproxen sodium 220 mg capsule 220 mg PO PRN PRN Pain 07/21/17 08/03/24 History (Aleve) paroxetine HCl 20 mg tablet 40 mg PO DAILY 02/02/19 08/03/24 History metoprolol succinate 25 mg 25 mg PO QDAY #90 tabs 08/09/19 08/03/24 Rx tablet,extended release 24 hr (Toprol XL) omeprazole 20 mg capsule,delayed 20 mg PO DAILY 03/12/21 08/03/24 History release cholecalciferol (vitamin D3) 25 25 mcg PO DAILY 12/25/22 08/03/24 History mcg (1,000 unit) tablet (Vitamin D3) qpnpppzpcyvf-Lu-ypcs-m inerals 18 1 tab PO DAILY 12/25/22 08/03/24 History mg-0.4 mg tablet omega-3 fatty acids 1,000 mg 1,000 mg PO DAILY 01/17/24 08/03/24 History capsule acetaminophen 500 mg tablet 500 mg PO BID 04/10/24 08/03/24 History (Tylenol Extra Strength) nitrofurantoin 1 cap PO Q12H 7 days #14 caps 08/03/24 08/03/24 Rx monohydrate/macrocryst als 100 mg capsule phenazopyridine 200 mg tablet 200 mg PO TID PRN pain 6 doses #7 08/03/24 08/03/24 Rx (Pyridium) tabs Nurse's Note: Patient has concerns for a UTI. Patient started yesterday morning with pain, burning and frequency and urgency. [facility] Medical History Wears contact lenses Alcohol use Arthritis Bladder disease Migraine headache Former smoker Shortness of breath on exertion Leg cramps History of echocardiogram Cardiology follow-up encounter Hyperlipidemia Depression Anxiety Degenerative disc disease, lumbar UTI (urinary tract infection) Fatigue Osteoarthritis Obesity GERD (gastroesophageal reflux disease) Near syncope Supraventricular tachycardia Premature ventricular beat Surgical History History of lumbar spinal fusion H/O excision of ganglion cyst History of dilatation and curettage History of History of total right knee replacement ( 06/2011) Family History Father CAD (coronary artery disease) ischemic cardiomyopathy Social History household members: spouse current occupational status: employed Smoking Status: Former smoker alcohol intake: current alcohol intake frequency: holidays/special occasions only HPI HPI Chief Complaint: urinary burning/ frequency Details: JULIETA MENDES, is a 64 F who presents to the office today for complaint of dysuria and increased urinary urgency/frequency for the past several days. Patient denies fever, chills, sweats. No nausea, vomiting or diarrhea. No loss of bowel or bladder control. No other associated symptoms or alleviating/aggravatin g factors. ROS Const Constitutional: Positive for other (ROS negative x 6 except what is described above) Exam Const General: cooperative and healthy appearing Resp Effort Inspection: normal respiratory effort Auscultation: Bilateral: Clear to Auscultation Cardio Rate: regular rate Rhythm: regular rhythm GI Auscultation: normal bowel sounds General: No CVA tenderness Psych Appearance: grossly normal Mental Status: mental status grossly normal Results POC Urinalysis Dip (Clinic) Office Urine Color Yellow Last Edit by Fiorella Guzman MA on 08/03/24 08:47 Office Urine Clarity Cloudy Last Edit by Fiorella Guzman MA on 08/03/24 08:47 Office Urine Glucose Negative Last Edit by Fiorella Guzman MA on 08/03/24 08:47 Office Urine Ketones Trace (5) Last Edit by Fiorella Guzman MA on 08/03/24 08:47 Off Ur Spec [place] 1.015 Last Edit by Fiorella Guzman MA on 08/03/24 08:47 Office Urine pH 6.0 Last Edit by Fiorella Guzman MA on 08/03/24 08:47 Office Urine Bilirubin Small (1+) Last Edit by Fiorella Guzman MA on 08/03/24 08:47 Office Urine Urobilinogen 1 mg/dL Last Edit by Fiorella Guzman MA on 08/03/24 08:47 Office Urine Blood Hemolyzed Last Edit by Fiorella Guzman MA on 08/03/24 08:47 Office Urine Bloo (more content not included)... Normal [facility] Inital Evaluation (1) - PTon 07-10-2024 Inital Evaluation (1) - PT [facility] [address] [place] [address] / REHABILITATION SERVICES INITIAL EVALUATION MR#: [id number] Acct: [id number] Name: JULIETA MENDES Rep #: [id number] : 1960 64 From: Joe CLARKT Referring Dr.: Ronal Buck MD Status: REG RCR Insurance: [employer]/[facility] SELF PAY INSURANCE Patient's Visit Information Visit Information Visit Information: JULIETA MENDES is a 64 year old F referred to Physical Therapy by Dr. Ronal Buck MD with a diagnosis of L TKA, DOS: 07/03/24. Date of Evaluation: 07/06/24 Physical Therapist: Joe Pepe DPT Visit Plan Frequency: 3x /Week Duration: 6 Weeks Plan: 1) L knee ROM progressing to 0-0-120deg, HS stretching 2) joint mobs including PAs and APs to increase ROM 3) foam rolling of IT band, quads, HS 4) vaso for edema control 5) quad initiation progressing to functional strengthening 6) gait progression, moving from AD to no Ad as safely able. Subjective Subjective: Pt. is here today for her initial evaluation with diagnosis of L TKA. DOS: 07/03/24. Pt. arrives using FWW. Pt. reports overall doing well. Pt. reports walking frequently, icing multiple times per day and doing some of her exercises as able. Pt. denies N/T in either LE. Pt. reports no calf pain. No dizziness and no chest pains. Pt. is wearing her TEDs and elevating as indicated. 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 Pt. is having some trouble sleeping and is taking her pain meds as prescribed. Pt. also likes to ride horses and would like to get back to this as well. Pain L knee: Pain Intensity (Out of 10): 2 Pain Intensity Range: 0 and 4 Objective Objective: POSTURE: Pt. has good wt. shift in stance in stance. pt. uses FWW in stance. PALPATION: Pt. has negative howmans sign. Pt. has bandage in place, but is to leave on for a few more days. No signs of infection noted, but bandage still in place. NEURO: Pt. has normal achilles DTR. Pt. is able to rise on heels and toes. ROM: L knee: 0-5-83deg. Tightness in B HS. Tightness noted at end range of B knee motions. MMT: L knee: ext 2# increase NW, flexion 8# NW; hip: flexion 0#, abd 5#, ext 3#. GAIT: Pt. ambulates without FWW with slight loss of TKE during stance phase. Decent knee flexion during swing phase. STAIRS: step to pattern loading RLE only. Balance/Special Test Scores TUG Test Time Seconds: 29.1 30 Second Chair Rise Test Seconds: 6 WOMAC Total Score: 19 WOMAC Percentatge: 80.2100 Goals Goal 1:: LTG: PT. to be I with HEP. Goal Time Frame: 4-6 Weeks Goal 2:: LTG: Pt. to have symmetrical BLE strength. Goal Time Frame: 4-6 Weeks Goal 3:: STG: Pt. to have symmetrical girth between B knees indicating reduced L knee edema. Goal Time Frame: 2-4 Weeks Goal 4:: LTG: PT. to have L knee ROM improved to 0-0-120deg allowing for increased functional mobility. Goal Time Frame: 4-6 Weeks Goal 5:: LTG: Pt. to complete TUG with time less than 10seconds. Goal Time Frame: 4-6 Weeks Goal 6:: LTG: Pt. to negotiate steps with reciprocal pattern with use of 1 HR. Goal Time Frame: 4-6 Weeks Rehabilitation Potential Physical Therapy Diagnosis: Pt. has signs and symptoms consistent with L TKA, DOS: 07/03/24. Pt. has marked hypomobility, weakness, difficulty walking and increased edema. Pt would benefit from PT to address the above limitations progressing back to all work and recreational activities. Rehabilitation Potential: Excellent Anticipated Interventions Patient/Client Instruction: Educate patient on: Condition, Plan of Care, Risk Factors and Benefits of Fitness Program For the Purpose of:: To improve decision making, To facilitate caregiver knowledge, To improve self management, To prevent re-injury, To improve ability to perform tasks related to life management and To improve tolerance to ADL's Therapeutic Exercise to Include: Strength training, Power training, Flexibilty training, Gait and locomotor training, Passive ROM and Active ROM For the Purpose of:: To decrease pain, To increase ROM, To improve nutrient delivery to tissue, To increase oxygenation perfusion, To improve muscle performance and motor function, To improve ability to perform ADL's, To increase tolerance to activity/condition/pos ition and To improve performance and independence with ADL's Cryotherapy (ice pack, ice massage): Yes Vasopneumatic device: Yes For the Purpose of:: To decrease pain, To decrease swelling/inflammation, To increase ROM, To improve nutrient delivery to tissue, To increase oxygenation perfusion and To improve muscle performance and motor function Text: Thank you for the opportunity to evaluate your patient. For Medicare and Medicare HMO plans, please review the plan of care and appro (more content not included)... Normal [facility] SCRN MAMM (CAD)W/WU Quiles n 06-19-2024 SCRN MAMM (CAD)W/WU [facility] [address] [place], [place] [id number] SCRN MAMM (CAD)W/WU NEIL MR#: [id number] Acct: [id number] Name: JULIETA MENDES Rep #: [id number] : 1960 F 64 From: Walter Eldridge MD PCP: Dr. Corinne Johnson MD Status: REG CLI Study: SCRN MAMM (CAD)W/WU BILAT Date of Exam: 05/27 12/16 Exam# [id number] Ordering Dr: Jennifer Mcclellan DO [id number] MAMMOGRAPHY - BILATERAL SCREENING 3-D TOMOSYNTHESIS REASON FOR EXAM: Female, 64 years old. SCREENING PERTINENT HISTORY: No significant family history. TECHNIQUE: 2-D mammograms and 3-D Tomosynthesis of the breast (s) were performed. CAD was performed. COMPARISON: 06/14/2023 FINDINGS: The breast composition is Extermely dense tissue. Scattered benign calcifications are seen. No dense spiculated masses or suspicious microcalcifications are identified. No architectural distortion is identified. There is no skin thickening or retraction. There has been no significant change since the prior study. BI/SCRN MAMM (CAD)W/WU BILAT IMPRESSION: No mammographic signs of malignancy. Routine yearly mammograms recommended. ASSESSMENT CATEGORY: BIRADS Category 1: Negative. A letter regarding these results will be sent to the patient by the facility within 30 days. FOLLOW UP RECOMMENDATION: Yearly follow up mammogram recommended. (A) Approximately 10% of breast cancers are not detected by mammography. A normal mammogram should not delay biopsy of a clinically suspicious abnormality. Electronically Signed: Walter Eldridge MD at 16:40 EST , CC: Dr. Corinne Johnson MD; Dr. Jennifer Mcclellan DO Field Associate: Signed Normal [facility] Culture, urineOrdered By: Mirtha Cruz on 10-03-2023 Bacteria identified Cx Nom (U) Presumptive E. coli [facility] - Chemistry and C hemistry - challengeon 10-03-2023 Bilirubin Ql (U) Negative [facility] Glucose Ql (U) Negative [facility] Ketones Ql (U) Negative [facility] Specific gravity (U) [Rel density] 1.015 [facility] Urobilinogen (U) [Mass/Vol] Negative [facility] - Hematology and Cell countson 10-03-2023 Hemoglobin Ql (U) Moderate [facility] - Specimen inform ationon 10-03-2023 Clarity (U) Clear [facility] Color (U) DARK YELLOW [facility] - Urinalysison Nitrite Ql (U) Negative [facility] Protein Ql (U) 1+ [facility] No Panel Informationon 10-02 Urine Leukocytes Positive [facility] Urine Non-Hemolyzed Blood [facility] Urine pH 6.0. [facility] Culture, urineOrdered By: Swati Alarcon on 08-05-2023 Bacteria identified Cx Nom (U) Escherichia coli [facility] - Chemistry and C hemistry - challengeon 08-05-2023 Bilirubin Ql (U) Negative [facility] Glucose Ql (U) Negative [facility] Ketones Ql (U) Negative [facility] pH (U) 7.0 [pH] [facility] Specific gravity (U) [Rel density] 1.025 [facility] Urobilinogen (U) [Mass/Vol] Negative [facility] - Hematology and Cell countson 08-05-2023 Hemoglobin Ql (U) Moderate [facility] - Specimen inform ationon 08-05-2023 Clarity (U) Cloudy [facility] Color (U) DARK YELLOW [facility] - Urinalysison Nitrite Ql (U) Negative [facility] Protein Ql (U) Negative [facility] No Panel Informationon 08-05 Urine Leukocytes Positive [facility] Urine Non-Hemolyzed Blood [facility] Absolute lymphocyte countOrd ered By: HEALTH ASSESSMENT on 04-30-2023 Lymphocytes Auto (Unsp spec) [#/Vol] 2.45 10*3/uL 0.83-4.51 [facility] Absolute reticulocyte countO rdered By: HEALTH ASSESSMENT on 10-06-2023 Reticulocytes (Bld) [#/Vol] 0.00 10*3/uL 0-5 [facility] Basophil percentageOrdered B y: HEALTH ASSESSMENT on 04-30-2023 Basophil percentage 2.7 mg/dL 2.5-4.9 [facility] Bilirubin [Mass/Vol] 0.40 mg/dL 0.20-1.00 [facility] Comment on above: For patients on eltr ombopag therapy, use of Dimension [place] TBIL is not recommended. Chloride [Moles/Vol] 109 mmol/L 98-107 [facility] Cholesterol [Mass/Vol] 221 mg/dL <200 [facility] Comment on above: <200 mg/dL Desirable 200-240 mg/dL Borderline >240 mg/dL High Risk Glucose [Mass/Vol] 107 mg/dL 74-106 [facility] Comment on above: Fasting Glucose resu lt from 100 to 125 mg/dL suggests IMPAIRED HOMEOSTASIS per A.D.A. criteria. LDH [Catalytic activity/Vol] 276 U/L 84-246 [facility] Neutrophils (Bld) [#/Vol] 3.5 10*3/uL 2.0-7.7 [facility] Potassium [Moles/Vol] 3.9 mmol/L 3.5-5.1 [facility] Protein [Mass/Vol] 7.2 g/dL 6.4-8.2 [facility] Sodium [Moles/Vol] 140 mmol/L 136-145 [facility] Triglyceride [Mass/Vol] 120 mg/dL <199 [facility] Comment on above: The drugs N-Acetylcy steine and Metamizole may falsely depress this assay.Serum Triglycerides Reference Interval Normal <150 mg/dL Borderline high 150 - 199 mg/dL High 200 - 499 mg/dL Very High > or = 500 mg/dL WBC (Bld) [#/Vol] 6.9 10*3/uL 4.4-11.0 [facility] Bilirubin Test strip Ql (U)O rdered By: HEALTH ASSESSMENT on 04-30-2023 Bilirubin Ql (U) Negative Negative [facility] Blood erythrocytes count (nu mber/volume)Ordered By: HEALTH ASSESSMENT on 04-30-2023 RBC (Bld) [#/Vol] 4.67 10*6/uL 4.2-5.4 [facility] Blood hemoglobin measurement (mass/volume)Ordered By: HEALTH ASSESSMENT on 04-30-2023 Hemoglobin (Bld) [Mass/Vol] 13.3 g/dL 12.0-15.0 [facility] Blood platelet mean volumeOr dered By: HEALTH ASSESSMENT on 04-30-2023 Platelet mean volume (Bld) [Entitic vol] 9.6 fL 6.2-12.0 [facility] Determination of erythrocyte mean corpuscular volume (MCV)Ordered By: HEALTH ASSESSMENT on 04-30-2023 MCV (RBC) [Entitic vol] 89.3 fL 81-99 [facility] Direct bilirubinOrdered By: HEALTH ASSESSMENT on 04-30-2023 Bilirubin.direct [Mass/Vol] 0.11 mg/dL 0.00-0.30 [facility] Hematocrit Auto (Bld) [Volum e fraction]Ordered By: HEALTH ASSESSMENT on 04-30-2023 Hematocrit (Bld) [Volume fraction] 41.7 % 37-47 [facility] Ketones Test strip Ql (U)Ord ered By: HEALTH ASSESSMENT on 04-30-2023 Ketones Ql (U) Negative Negative [facility] - Chemistry and C hemistry - challengeOrdered By: HEALTH ASSESSMENT on 04-30-2023 ALP [Catalytic activity/Vol] 91 U/L 45-117 [facility] ALT [Catalytic activity/Vol] 23 U/L 13-56 [facility] Cholesterol.total/Choles terol in HDL [Mass ratio] 3.90 {ratio} [facility] CO2 [Moles/Vol] 28.0 mmol/L 21.0-32.0 [facility] Globulin (S) [Mass/Vol] 3.8 g/dL 2.2-4.2 [facility] Urea nitrogen/Creatinine [Mass ratio] 26.7 mg/mg 10-20 [facility] - Hematology and Cell countsOrdered By: HEALTH ASSESSMENT on 04-30-2023 Erythrocyte distribution width (RBC) [Entitic vol] 45.5 fL 35.1-43.9 [facility] Erythrocyte distribution width (RBC) [Ratio] 14.2 % 11.6-14.6 [facility] MCH (RBC) [Entitic mass] 28.5 pg 27.0-32.0 [facility] Nucleated RBC/100 WBC (Bld) [Ratio] 0 % 0-5 [facility] MCHC Auto (RBC) [Mass/Vol]Or dered By: HEALTH ASSESSMENT on 04-30-2023 MCHC (RBC) [Mass/Vol] 31.9 g/dL 32-36 [facility] Nitrite Test strip Ql (U)Ord ered By: HEALTH ASSESSMENT on 04-30-2023 Nitrite Ql (U) Negative Negative [facility] No Panel InformationOrdered By: HEALTH ASSESSMENT on 04-30-2023 Estimated GFR (MDRD) Amer 130 mL/min >60 [facility] Comment on above: GFR Calc Estimated GFR (MDRD) Non-Af Amer 108 mL/min >60 [facility] Comment on above: Non- GFR Calc Platelets bldOrdered By: HEA LT ASSESSMENT on 04-30-2023 Platelets (Bld) [#/Vol] 295 10*3/uL 150-450 [facility] Protein Test strip Ql (U)Ord ered By: HEALTH ASSESSMENT on 04-30-2023 Protein Ql (U) 15 mg/dl Negative [facility] Segmented neutrophils/100 WB C Auto (Bld)Ordered By: HEALTH ASSESSMENT on 04-30-2023 Segmented neutrophils/100 WBC (Bld) 50.2 % 47-70 [facility] Serum or plasma albumin fahad urement (mass/volume)Ordered By: HEALTH ASSESSMENT on 04-30-2023 Albumin [Mass/Vol] 3.4 g/dL 3.2-5.0 [facility] Serum or plasma albumin/glob ulin mass ratioOrdered By: HEALTH ASSESSMENT on 04-30-2023 Albumin/Globulin [Mass ratio] 0.9 {ratio} 0.9-2.4 [facility] Serum or plasma calcium fahad urement (mass/volume)Ordered By: HEALTH ASSESSMENT on 04-30-2023 Calcium [Mass/Vol] 8.6 mg/dL 8.5-10.1 [facility] Serum or plasma cholesterol in HDL measurement (mass/volume)Ordered By: HEALTH ASSESSMENT on 04-30-2023 Cholesterol in HDL [Mass/Vol] 57 mg/dL >40 [facility] Comment on above: The drugs N-Acetylcy steine and Metamizole may falsely depress this assay. Reference Range HDL <40 mg/dL Low HDL Cholesterol HDL >or= 60 mg/dL High HDL Cholesterol Serum or plasma cholesterol in VLDL measurement (mass/volume)Ordered By: HEALTH ASSESSMENT on 04-30-2023 Cholesterol in VLDL [Mass/Vol] 24 mg/dL 5-40 [facility] Serum or plasma creatinine m easurement (mass/volume)Ordered By: HEALTH ASSESSMENT on 04-30-2023 Creatinine [Mass/Vol] 0.60 mg/dL 0.55-1.02 [facility] Comment on above: The validity of the calculated GFR & GFRAA in patients over 70 years has not been determined. Clinical correlation is essential. Serum or plasma low density lipoprotein (LDL) cholesterol measurement (mass/volume)Ordered By: HEALTH ASSESSMENT on 04-30-2023 Cholesterol in LDL [Mass/Vol] 140 mg/dL 0-130 [facility] Serum or plasma urea nitroge n measurement (mass/volume)Ordered By: HEALTH ASSESSMENT on 04-30-2023 Urea nitrogen [Mass/Vol] 16 mg/dL 7-18 [facility] Serum or plasma uric acid me asurement (mass/volume)Ordered By: HEALTH ASSESSMENT on 04-30-2023 Urate [Mass/Vol] 4.2 mg/dL 2.6-6.0 [facility] Comment on above: The drugs N-Acetylcy steine and Metamizole may falsely depress this assay. Thin prep Papanicolaou smear with manual screeningOrdered By: HEALTH ASSESSMENT on 04-30-2023 Thin prep Papanicolaou smear with manual screening 18 U/L 15-37 [facility] Thin prep Papanicolaou smear with manual screening 3 5-15 [facility] Urine blood detectionOrdered By: HEALTH ASSESSMENT on 04-30-2023 RBC Ql (U) 150 /ul Negative [facility] Urine clarityOrdered By: [facility] ASSESSMENT on 04-30-2023 Clarity (U) Clear Clear [facility] Urine color determinationOrd ered By: HEALTH ASSESSMENT on 04-30-2023 Color (U) Yellow Yellow [facility] Urine glucose detectionOrder ed By: HEALTH ASSESSMENT on 04-30-2023 Glucose Ql (U) Normal mg/dl Normal [facility] Urine leukocyte esterase det ection by dipstickOrdered By: HEALTH ASSESSMENT on 04-30-2023 Leukocyte esterase Test strip Ql (U) 25 /ul Negative [facility] Urine pHOrdered By: HEALTH A SSESSMENT on 04-30-2023 pH (U) 6.0 [pH] 5.0 - 8.0 [facility] Urine specific gravity measu rementOrdered By: HEALTH ASSESSMENT on 04-30-2023 Specific gravity (U) [Rel density] 1.020 1.002-1.030 [facility] Urobilinogen Auto test strip Ql (U)Ordered By: HEALTH ASSESSMENT on 04-30-2023 Urobilinogen Ql (U) Normal mg/dl Normal [facility] Absolute lymphocyte counton 04-28-2022 Lymphocytes Auto (Unsp spec) [#/Vol] 2.43 10*3/uL 0.83-4.51 [facility] Work Phone: Absolute reticulocyte counto n 04-28-2022 Reticulocytes (Bld) [#/Vol] 0.00 10*3/uL 0-5 [facility] Work Phone: Basophil percentageon 2021 Basophil percentage 3.0 mg/dL 2.5-4.9 [facility] Work Phone: Bilirubin [Mass/Vol] 0.40 mg/dL 0.20-1.00 [facility] Work Phone: Comment on above: For patients on eltr ombopag therapy, use of Dimension [place] TBIL is not recommended. Chloride [Moles/Vol] 105 mmol/L 98-107 [facility] Work Phone: Cholesterol [Mass/Vol] 230 mg/dL <200 [facility] Work Phone: Comment on above: <200 mg/dL Desirable 200-240 mg/dL Borderline >240 mg/dL High Risk Glucose [Mass/Vol] 105 mg/dL 74-106 [facility] Work Phone: Comment on above: Fasting Glucose resu lt from 100 to 125 mg/dL suggests IMPAIRED HOMEOSTASIS per A.D.A. criteria. Neutrophils (Bld) [#/Vol] 3.6 10*3/uL 2.0-7.7 [facility] Work Phone: [phone] Potassium [Moles/Vol] 3.7 mmol/L 3.5-5.1 [facility] Work Phone: [phone] Protein [Mass/Vol] 7.7 g/dL 6.4-8.2 [facility] Work Phone: [phone] Sodium [Moles/Vol] 140 mmol/L 136-145 [facility] Work Phone: [phone] Triglyceride [Mass/Vol] 130 mg/dL <199 [facility] Work Phone: [phone] Comment on above: The drugs N-Acetylcy steine and Metamizole may falsely depress this assay.Serum Triglycerides Reference Interval Normal <150 mg/dL Borderline high 150 - 199 mg/dL High 200 - 499 mg/dL Very High > or = 500 mg/dL WBC (Bld) [#/Vol] 6.9 10*3/uL 4.4-11.0 [facility] Work Phone: [phone] Blood erythrocytes count (nu mber/volume)on 04-28-2022 RBC (Bld) [#/Vol] 4.98 10*6/uL 4.2-5.4 [facility] Work Phone: [phone] Blood hemoglobin measurement (mass/volume)on 04-28-2022 Hemoglobin (Bld) [Mass/Vol] 13.5 g/dL 12.0-15.0 [facility] Work Phone: [phone] Blood platelet mean volumeon 04-28-2022 Platelet mean volume (Bld) [Entitic vol] 9.3 fL 6.2-12.0 [facility] Work Phone: [phone] Determination of erythrocyte mean corpuscular volume (MCV)on 04-28-2022 MCV (RBC) [Entitic vol] 85.3 fL 81-99 [facility] Work Phone: [phone] Direct bilirubinon Bilirubin.direct [Mass/Vol] 0.09 mg/dL 0.00-0.30 [facility] Work Phone: [phone] Hematocrit Auto (Bld) [Volum e fraction]on 04-28-2022 Hematocrit (Bld) [Volume fraction] 42.5 % 37-47 [facility] Work Phone: [phone] Laboratory - Chemistry and C hemistry - challengeon 04-28-2022 ALP [Catalytic activity/Vol] 103 U/L 45-117 [facility] Work Phone: [phone] ALT [Catalytic activity/Vol] 21 U/L 13-56 [facility] Work Phone: [phone] Cholesterol.total/Choles terol in HDL [Mass ratio] 3.80 {ratio} [facility] Work Phone: [phone] CO2 [Moles/Vol] 29.0 mmol/L 21.0-32.0 [facility] Work Phone: [phone] Globulin (S) [Mass/Vol] 4.1 g/dL 2.2-4.2 [facility] Work Phone: [phone] Urea nitrogen/Creatinine [Mass ratio] 25.0 mg/mg 10-20 [facility] Work Phone: [phone] Laboratory - Hematology and Cell countson 04-28-2022 Erythrocyte distribution width (RBC) [Entitic vol] 46.1 fL 35.1-43.9 [facility] Work Phone: [phone] Erythrocyte distribution width (RBC) [Ratio] 14.8 % 11.6-14.6 [facility] Work Phone: [phone] MCH (RBC) [Entitic mass] 27.1 pg 27.0-32.0 [facility] Work Phone: [phone] Nucleated RBC/100 WBC (Bld) [Ratio] 0 % 0-5 [facility] Work Phone: [phone] MCHC Auto (RBC) [Mass/Vol]on 04-28-2022 MCHC (RBC) [Mass/Vol] 31.8 g/dL 32-36 [facility] Work [facility]: [phone] Panel Informationon 04-28 Estimated GFR (MDRD) Amer 130 mL/min >60 [facility] Work Phone: Comment on above: GFR Calc Estimated GFR (MDRD) Non-Af Amer 108 mL/min >60 [facility] Work Phone: Comment on above: Non- GFR Calc Platelets bldon 04-28-2022 Platelets (Bld) [#/Vol] 324 10*3/uL 150-450 [facility] Work Phone: Segmented neutrophils/100 WB C Auto (Bld)on 04-28-2022 Segmented neutrophils/100 WBC (Bld) 51.7 % 47-70 [facility] Work Phone: Serum or plasma albumin fahad urement (mass/volume)on 04-28-2022 Albumin [Mass/Vol] 3.6 g/dL 3.2-5.0 [facility] Work Phone: Serum or plasma albumin/glob ulin mass ratioon 04-28-2022 Albumin/Globulin [Mass ratio] 0.9 {ratio} 0.9-2.4 [facility] Work Phone: Serum or plasma calcium fahad urement (mass/volume)on 04-28-2022 Calcium [Mass/Vol] 9.2 mg/dL 8.5-10.1 [facility] Work Phone: Serum or plasma cholesterol in HDL measurement (mass/volume)on 04-28-2022 Cholesterol in HDL [Mass/Vol] 61 mg/dL >40 [facility] Work Phone: Comment on above: The drugs N-Acetylcy steine and Metamizole may falsely depress this assay. Reference Range HDL <40 mg/dL Low HDL Cholesterol HDL >or= 60 mg/dL High HDL Cholesterol Serum or plasma cholesterol in VLDL measurement (mass/volume)on 04-28-2022 Cholesterol in VLDL [Mass/Vol] 26 mg/dL 5-40 [facility] Work Phone: Serum or plasma creatinine m easurement (mass/volume)on 04-28-2022 Creatinine [Mass/Vol] 0.60 mg/dL 0.55-1.02 [facility] Work Phone: Comment on above: The validity of the calculated GFR & GFRAA in patients over 70 years has not been determined. Clinical correlation is essential. Serum or plasma low density lipoprotein (LDL) cholesterol measurement (mass/volume)on 04-28-2022 Cholesterol in LDL [Mass/Vol] 143 mg/dL 0-130 [facility] Work Phone: [phone] Serum or plasma urea nitroge n measurement (mass/volume)on 04-28-2022 Urea nitrogen [Mass/Vol] 15 mg/dL 7-18 [facility] Work Phone: [phone] Serum or plasma uric acid me asurement (mass/volume)on 04-28-2022 Urate [Mass/Vol] 4.1 mg/dL 2.6-6.0 [facility] Work Phone: Comment on above: The drugs N-Acetylcy steine and Metamizole may falsely depress this assay. Thin prep Papanicolaou smear with manual screeningon 04-28-2022 Thin prep Papanicolaou smear with manual screening 18 U/L 15-37 [facility] Work Phone: [phone] Thin prep Papanicolaou smear with manual screening 6 5-15 [facility] Work Phone: [phone] Thin prep Papanicolaou smear with manual screening 298 U/L 84-246 [facility] Work Phone: [phone] Culture, urineon 12-12-2021 Bacteria identified Cx Nom (U) Presumptive E. coli [facility] Work Phone: [phone] Basic Metabolic Panelon Anion gap [Moles/Vol] 6 mmol/L Normal 3-13 [facility] Comment on above: Performed By: #### B MP3, HEMOG #### [employer] [address] [place] [address] Calcium [Mass/Vol] 9.0 mg/dL Normal 8.4-10.4 [facility] Comment on above: Performed By: #### B MP3, HEMOG #### [facility] [address] [place], [place] CO2 [Moles/Vol] 26 mmol/L Normal 22-30 [facility] Comment on above: Performed By: #### B MP3, HEMOG #### [facility] [address], [place] Creatinine [Mass/Vol] 0.63 mg/dL Normal 0.52-1.25 [facility] Comment on above: Performed By: #### B MP3, HEMOG #### [facility] [address] [place], [place] eGFR OTHER > 90.0 Normal >60 [facility] Comment on above: Result Comment: KDIG O guidelines provide the following GFR categories: Stage GFR(ml/min/1.73 m2) Terms G1 >=90 Normal or high G2 60-89 Mildly decreased* G3a 45-59 Mildly to moderately decreased G3b 30-44 Moderately to severely decreased G4 15-29 Severely decreased G5 <15 Kidney failure *Relative to young adult level. In the absence of evidence of kidney damage, neither GFR category G1 nor G2 fulfill the criteria for CKD. The CKD-EPI equation is validated in individuals 18 years of age and older. Currently the best equation for estimating glomerular filtration rate (GFR) from serum creatinine in children is the Bedside Casas equation. It is less accurate in patients with extremes of muscle mass, restriction of dietary protein, ingestion of creatine, extra-renal metabolism of creatinine, or treatment with medications that affect renal tubular creatinine secretion. Performed By: #### B WILDER3, HEMOG #### [facility] [address] [place], [place] GFR/1.73 sq M.predicted among blacks MDRD (S/P/Bld) [Vol rate/Area] mL/min/{1.73_m2} Normal >60 [facility] Comment on above: Performed By: #### B MP3, HEMOG #### [facility] [address], [place] Glucose [Mass/Vol] 91 mg/dL Normal 70-100 [facility] Comment on above: Performed By: #### B WILDER3, HEMOG #### [place] [address] [place], [place] Urea nitrogen [Mass/Vol] 19 mg/dL Normal 9-20 [facility] Comment on above: Performed By: #### B MP3, HEMOG #### [facility] [address] [place], [place] Chloride [Moles/Vol] 105 mmol/L Normal 98-[address] [facility] Comment on above: Performed By: #### B MP3, HEMOG #### [facility] [address] [place], [place] Potassium [Moles/Vol] 4.4 mmol/L Normal 3.5-5.1 [facility] Comment on above: Performed By: #### B MP3, HEMOG #### [facility] [address] [place], [place] Sodium [Moles/Vol] 138 mmol/L Normal 135-145 [facility] Comment on above: Performed By: #### B MP3, HEMOG #### [facility] [address] [place], [place] Anion gap [Moles/Vol] 6 mmol/L 3 - 13 mmol/L [facility] Calcium [Mass/Vol] 9.0 mg/dL 8.4 - 10. 4 mg/dL [facility] Chloride [Moles/Vol] 105 mmol/L 98 - 10 7 mmol/L [facility] CO2 [Moles/Vol] 26 mmol/L 22 - 30 mmol/L [facility] Creatinine [Mass/Vol] 0.63 mg/dL 0.52 - 1.25 mg/dL [facility] EGFR IF NonAfrican Rwandan >90.0 >60 mL/min [facility] Comment on above: KDIGO guidelines pro vide the following GFR categories: Stage GFR(ml/min/1.73 m2) Terms G1 >=90 Normal or high G2 60-89 Mildly decreased* G3a 45-59 Mildly to moderately decreased G3b 30-44 Moderately to severely decreased G4 15-29 Severely decreased G5 <15 Kidney failure *Relative to young adult level. In the absence of evidence of kidney damage, neither GFR category G1 nor G2 fulfill the criteria for CKD. The CKD-EPI equation is validated in individuals 18 years of age and older. Currently the best equation for estimating glomerular filtration rate (GFR) from serum creatinine in children is the Bedside Casas equation. It is less accurate in patients with extremes of muscle mass, restriction of dietary protein, ingestion of creatine, extra-renal metabolism of creatinine, or treatment with medications that affect renal tubular creatinine secretion. GFR/1.73 sq M.predicted among blacks MDRD (S/P/Bld) [Vol rate/Area] mL/min/{1.73_m2} >60 mL/min [facility] Glucose [Mass/Vol] 91 mg/dL 70 - 100 mg/dL [facility] Potassium [Moles/Vol] 4.4 mmol/L 3.5 - 5.1 mmol/L [facility] Sodium [Moles/Vol] 138 mmol/L 135 - 145 mmol/L [facility] Urea nitrogen (BldV) [Mass/Vol] 19 mg/dL 9 - 20 mg/dL [facility] Test Performed by [id number] [place] [address] LAB [facility] ED Provider Noteon ED Provider Note Emergency Department Encounter [facility] EM[facility] Patient: Julieta Mendes : 1960 Date of Evaluation: 11/25/2021 ED Supervising Physician: Huber Jolly MD I independently examined and evaluated Julieta Mendes. In brief, Julieta Mendes is a 61 y.o. female that presents to the emergency department urinary incontinence and saddle anesthesia Focused exam: Vitals are stable she is awake alert well-appearing Brief ED course/MDM: Patient sent in by orthopedics at [facility] as she had MRI showing spinal stenosis and some signs and symptoms of cauda equina plan to consult Ortho All diagnostic, treatment, and disposition decisions were made by myself in conjunction with the ANDREA. For all further details of the patient's emergency department visit, please see their documentation. (Please note that portions of this note may have been completed with a voice recognition program. Efforts were made to edit the dictations but occasionally words are mis-transcribed.) Huber Jolly MD Acute Care [employer] Huber Jolly MD 11/25/21 1746 Normal [facility] ED Provider Note [facility] EM[facility] eMERGENCY dEPARTMENT eNCOUnter Pt Name: Julieta Mendes Birthdate 1960 Date of evaluation: 11/25/2021 Provider: Mari Loomis PA-C CHIEF COMPLAINT Chief Complaint Patient presents with ? Numbness pt seen at [facility] and had MRI showing spinal stenosis. Now pt is having bilateral leg/groin numbness. States they feel like lightning bolts going down her legs. EDcare was supervised by Dr. Jolly who independently examined and evaluated the patient. Please see their attestation note for further details. HISTORY OF PRESENT ILLNESS (Location/Symptom, Timing/Onset,Context/S etting, Quality, Duration, Modifying Factors, Severity) Note limiting factors. TIERA Mendes is a 61 y.o. female who presents to the emergency department Complaining of intermittent genital numbness, lightning bolts going down her legs and occasional urinary and bladder incontinence. Patient states that this has been going on for approximately 4 weeks now. Patient states that she had an MRI last Wednesday with Dr. Newman at the [facility]. Patient states that she was having the symptoms prior to the MRI yet stated that they seem to have worsened in the last few days. Patient states she does feel better today and her symptoms have subsided today. Patient states that the MRI showed bulging discs and spinal stenosis. Patient admitting to some low back pain today that is chronic. Patient states that she occasionally will have incontinence and knows she has to go to the bathroom but cannot get to the bathroom on time. Patient denies any problems with ambulation yet endorses worsening pain with walking and standing.. Patient denies any fevers or chills. Patient denies any back surgeries. Patient states overall pain is a 2 out of 10 localized to her chronic low back described as dull, occasionally shooting down her legs. Nursing Notes were reviewed. REVIEW OFSYSTEMS (2+ for level 4; 10+ for level 5) Review of Systems Constitutional: Negative for chills and fever. HENT: Negative for congestion and rhinorrhea. Respiratory: Negative for cough and shortness of breath. Cardiovascular: Negative for chest pain and leg swelling. Gastrointestinal: Negative for abdominal pain, constipation, diarrhea, nausea and vomiting. Genitourinary: Negative for difficulty urinating and dysuria. Occasional bowel and bladder incontinence. Musculoskeletal: Positive for back pain (Chronic low back pain). Lightning bolts that shoot down bilateral legs Skin: Negative for color change and rash. Neurological: Negative for dizziness and light-headedness. Saddle anesthesia. PAST MEDICAL HISTORY No past medical history on file. SURGICAL HISTORY No past surgical history on file. CURRENT MEDICATIONS Previous Medications No medications on file ALLERGIES Patient has no known allergies. FAMILY HISTORY No family history on file. SOCIAL HISTORY Social History Socioeconomic History ? Marital status: Spouse name: Not on file ? Number of children: Not on file ? Years of education: Not on file ? Highest education level: Not on file Occupational History ? Not on file Tobacco Use ? Smoking status: Not on file ? Smokeless tobacco: Not on file Substance and Sexual Activity ? Alcohol use: Not on file ? Drug use: Not on file ? Sexual activity: Not on file Other Topics Concern ? Not on file Social History Narrative ? Not on file Social Determinants of Health Financial Resource Strain: ? Difficulty of Paying Living Expenses: Not on file Food Insecurity: ? Worried About Running Out of Food in the Last Year: Not on file ? Ran Out of Food in the Last Year: Not on file Transportation Needs: ? Lack of Transportation (Medical): Not on file ? Lack of Transportation (Non-Medical): Not on file Physical Activity: ? Days of Exercise per Week: Not on file ? Minutes of Exercise per Session: Not on file Stress: ? Feeling of Stress : Not on file Social Connections: ? Frequency of Communication with Friends and Family: Not on file ? Frequency of Social Gatherings with Friends and Family: Not on file ? Attends Zoroastrian Services: Not on file ? Active Member of Clubs or Organizations: Not on file ? Attends Club or Organization Meetings: Not on file ? Marital Status: Not on file Intimate Partner Violence: ? Fear of Current or Ex-Partner: Not on file ? Emotionally Abused: Not on file ? Physically Abused: Not on file ? Sexually Abused: Not on file Housing Stability: ? Unable to Pay for Housing in the Last Year: Not on file ? Number of Places Lived in the Last Year: Not on file ? Unstable Housing in the Last Year: Not on file SCREENINGS Irais Coma Scale Eye Opening: Spontaneous Best Verbal Response: Oriented Best Motor Response: Obeys commands [place] Coma Scale Score: 15 PHYSICAL EXAM (up to 7 for level 4, 8 ormore f (more content not included)... Normal [facility] Hemogramon 11-25-2021 Erythrocyte distribution width (RBC) [Ratio] 14.0 % Normal 11.5-14.5 [facility] Comment on above: Performed By: #### B MP3, HEMOG #### [place] [place], [place] Hematocrit (Bld) [Volume fraction] 40.2 % Normal 35.0-47.0 [facility] Comment on above: Performed By: #### B MP3, HEMOG #### [place] [place], [place] Hemoglobin (Bld) [Mass/Vol] 13.2 g/dL Normal 11.7-16.0 [facility] Comment on above: Performed By: #### B MP3, HEMOG #### [place] [place], [place] MCH (RBC) [Entitic mass] 27.9 pg Normal 26.0-34.0 [facility] Comment on above: Performed By: #### B MP3, HEMOG #### [place] [place], [place] MCHC 32.8 % Normal 32.0-36.0 [facility] Comment on above: Performed By: #### B MP3, HEMOG #### [place] [place], [place] MCV (RBC) [Entitic vol] 85.2 fL Normal 79.0-98.0 [facility] Comment on above: Performed By: #### B MP3, HEMOG #### [place] [place], [place] Platelet mean volume (Bld) [Entitic vol] 7.1 fL Low 7.4-12.4 [facility] Comment on above: Result Comment: MPV is a calculated measurement using platelet volume ratio. Performed By: #### B MP3, HEMOG #### [place] [place], [place] Platelets (Bld) [#/Vol] 377 10*3/uL Normal 140-440 [facility] Comment on above: Performed By: #### B MP3, HEMOG #### [facility] [address], [place] RBC (Bld) [#/Vol] 4.71 10*6/uL Normal 3.80-5.20 [facility] Comment on above: Performed By: #### B MP3, HEMOG #### [facility] [address] [place], [place] WBC (Bld) [#/Vol] 8.6 10*3/uL Normal 3.6-10.7 [facility] Comment on above: Performed By: #### B MP3, HEMOG #### [place] [address] [place], [place] Hemogram (CBC)on 11-25-2021 Hematocrit (Bld) [Volume fraction] 40.2 % 35.0 - 47.0 % [facility] Hemoglobin.gastrointesti nal spec 1 Ql (Stl) 13.2 g/dL 11.7 - 16.0 g/dL [facility] Interpretation and review of laboratory results Abnormal [facility] MCH (RBC) [Entitic mass] 27.9 pg 26. 0 - 34.0 pg [facility] MCHC (RBC) [Mass/Vol] 32.8 % 32.0 - 36.0 % [facility] MCV (RBC) [Entitic vol] 85.2 fL 79.0 - 98.0 fL [facility] Platelet distribution width (Bld) [Ratio] 14.0 % 11.5 - 14.5 % [facility] Platelet mean volume (Bld) [Entitic vol] 7.1 fL Low 7.4 - 12.4 fL [facility] Comment on above: MPV is a calculated measurement using platelet volume ratio. Platelets (Bld) [#/Vol] 377 10*3/uL 140 - 440 10*3/uL [facility] RBC (Bld) [#/Vol] 4.71 10*6/uL 3.80 - 5.2 0 10*6/uL [facility] WBC (Bld) [#/Vol] 8.6 10*3/uL 3.6 - 10.7 10*3/uL [facility] Test Performed by [facility], [facility] [place] [address] [facility] CNCOon 10-18-2021 CNCO Letter Text Normal [facility] CNOVon 04-30-2021 CNOV Office Visit (OBGYWM ) JULIETA MENDES ([id number]) 1960 F Date Time Provider Department 04/30/21 10:00 AM MIKKI BEJARANO OBGYWM During your visit today, we recorded the following information about you: Blood pressure Weight Height 110/68 119.7 kg 1.651 m Mikki Bejarano APRN.CNM 04/30/2021 11:12 AM Signed Julieta is a 61 year old- new [...] external genitalia normal, normal Bartholin's glands, urethra, [place]'s glands, no vulvar lesions, no cervical lesions, physiologic discharge present, normal appearing perineal body and perianal region, stenotic os NEURO: alert and oriented x3,exam grossly non-focal EXTREMITIES: normal ASSESSMENT/PLAN: 1) Health maintenance: Pap done with HPV. Mammogram ordered - Pt to complete at [facility] Colon cancer screening: patient to discuss with PCP TSH/lipids/glucose: followed by PCP Vitamin D: followed by PCP 2) Follow up one year or sooner as needed Mikki Bejarano APRN.FLYNN Carmona 05/12/2021 11:32 AM Signed Normal pap letter sent in mail Referring Provider: SELF [200] Allergies As of Date: 04/30/2021 Noted Allergy Reaction MORPHINE 03/19/2016 11 - Vomiting Date Reviewed: 04/30/2021 Reviewed by: Kenyatta Marion LPN - Fully Assessed Reason for Visit: Well Woman [[id number]] Primary Visit Diagnosis:Encounter for gynecological examination (general) (routine) without abnormal findings [Z01.419] Other Visit Diagnoses:Encounter for screening for human papillomavirus (HPV) [Z11.51] Pap smear for cervical cancer screening [Z12.4] Order(s):PAP FLUID CERVICAL SCREENING [[id number]] Order #: [id number] #:[id number] HPV W/GENOTYPE [[id number]] Order #: [id number]. #:[id number] Prescriptions as of 05/12/2021 - PARoxetine (PAXIL) 20 mg tablet Take 40 mg by mouth. - metoprolol succinate ER (TOPROL XL) 25 mg 24 hr tablet Take 25 mg by mouth once daily. - OMEPRAZOLE ORAL Take by mouth once daily. - ibuprofen (MOTRIN) 200 mg tablet Take 200 mg by mouth twice daily. Two tablets Problem List As Of Date: 04/30/2021 (None) Disposition: Return in 1 year (on 04/30/2022) for Annual Exam. Follow-up and Disposition History Recorded Encounter Status:Closed by MIKKI BEJARANO on 04/30/21 Normal [facility] HPV w/Genotypeon 04-30-2021 HPV HighRisk Other Negative for HPV DNA high risk types: 31,33,35,39,45,51,52,5 6,58,59,66,68 by PCR. Normal [facility] Comment on above: Result Comment: This test was developed and its performance characteristics determined by [facility]'s [facility] [place] [facility] It has not been cleared or approved by the FDA. [facility] is regulated under CLIA as qualified to perform high-complexity testing. This test is used for clinical purposes. It should not be regarded as investigational or for research. Performed By: #### H PVHRR #### [facility] [employer] [address] [address] HPV HighRisk Type 16 Negative Normal [facility] Comment on above: Performed By: #### H PVHRR #### [facility] [employer] [address] [address] HPV HighRisk Type 18 Negative Normal [facility] Comment on above: Performed By: #### H PVHRR #### [facility] [employer] [facility] [address] Culture, urine Bacteria identified Cx Nom (U) Presumptive E. coli [facility] Work Phone: Vital Signs Date Time Vital Sign Value Performing Clinician Faci lity 12-23-2024 09:28-0400 Body temperature 98.5 [degF] Dr. Corinne Johnson MD Work Phone: [facility] 12-23-2024 09:28-0400 Diastolic blood pressure 72 mm[Hg] Dr. Corinne Johnson MD Work Phone: [facility] 12-23-2024 09:28-0400 Heart rate 65 /min Dr. Corinne Johnson MD Work Phone: [facility] 12-23-2024 09:28-0400 Respiratory rate 16 /min Dr. Corinne Johnson MD Work Phone: [facility] 12-23-2024 09:28-0400 SaO2% (BldA) [Mass fraction] 97 % Dr. Corinne Johnson MD Work Phone: [facility] 12-23-2024 09:28-0400 Systolic blood pressure 128 mm[Hg] Dr. Corinne Johnson MD Work Phone: [facility] 10-03-2023 10:38-0400 Body temperature 98.2 [degF] Dr. Corinne Johnson Work Phone: [facility] 10-03-2023 10:38-0400 Diastolic blood pressure 82 mm[Hg] Dr. Corinne Johnson Work Phone: [facility] 10-03-2023 10:38-0400 Heart rate 83 /min Dr. Corinne Johnson Work Phone: [facility] 10-03-2023 10:38-0400 Respiratory rate 17 /min Dr. Corinne Johnson Work Phone: [facility] 10-03-2023 10:38-0400 SaO2% (BldA) [Mass fraction] 96 % Dr. Corinne Johnson Work Phone: [facility] 10-03-2023 10:38-0400 Systolic blood pressure 126 mm[Hg] Dr. Corinne Johnson Work Phone: [facility] 08-05-2023 07:21-0500 Body temperature 97.7 [degF] Dr. Corinne Johnson Work Phone: [facility] 08-05-2023 07:21-0500 Diastolic blood pressure 84 mm[Hg] Dr. Corinne Johnson Work Phone: [facility] 08-05-2023 07:21-0500 Heart rate 84 /min Dr. Corinne Johnson Work Phone: [facility] 08-05-2023 07:21-0500 Respiratory rate 16 /min Dr. Corinne Johnson Work Phone: [facility] 08-05-2023 07:21-0500 SaO2% (BldA) [Mass fraction] 96 % Dr. Corinne Johnson Work Phone: [facility] 08-05-2023 07:21-0500 Systolic blood pressure 130 mm[Hg] Dr. Corinne Johnson Work Phone: [facility] 02-01-2023 08:00-0400 Body height 170.[address] Matthew Monterroso Work Phone: [facility] 02-01-2023 08:00-0400 Body mass index (BMI) [Ratio] 42.9 kg/m2 Dr. Matthew Monterroso Work Phone: [facility] 02-01-2023 08:00-0400 Body weight 124.[address] Matthew Monterroso Work Phone: [facility] 12-29-2022 15:09-0400 Body temperature 98.6 [degF] Dr. Josias Mckinney Work Phone: [facility] 12-29-2022 15:09-0400 Diastolic blood pressure 79 mm[Hg] Dr. Josias Mckinney Work Phone: [facility] 12-29-2022 15:09-0400 Heart rate 71 /min Dr. Josias Mckinney Work Phone: [facility] 12-29-2022 15:09-0400 Respiratory rate 16 /min Dr. Josias Mckinney Work Phone: [facility] 12-29-2022 15:09-0400 SaO2% (BldA) [Mass fraction] 100 % Dr. Josias Mckinney Work Phone: [facility] 12-29-2022 15:09-0400 Systolic blood pressure 142 mm[Hg] Dr. Josias Mckinney Work Phone: [facility] 12-29-2022 13:46-0400 Body height 170.[address] Josias Mckinney Work Phone: [facility] 12-29-2022 13:46-0400 Body mass index (BMI) [Ratio] 41.8 kg/m2 Dr. Josias Mckinney Work Phone: [facility] 12-29-2022 13:46-0400 Body weight [address] Josias Mckinney Work Phone: [facility] 10-27-2022 08:48-0400 Body mass index (BMI) [Ratio] 41.5 kg/m2 Dr. Josias Mckinney Work Phone: [facility] 10-27-2022 08:48-0400 Body weight 120.[address] Josias Mckinney Work Phone: [facility] 09-21-2022 11:40-0500 Body temperature 97.8 [degF] Dr. Josias Mckinney Work Phone: [facility] 09-21-2022 11:40-0500 Diastolic blood pressure 78 mm[Hg] Dr. Josias Mckinney Work Phone: [facility] 09-21-2022 11:40-0500 Heart rate 78 /min Dr. Josias Mckinney Work Phone: [facility] 09-21-2022 11:40-0500 Respiratory rate 16 /min Dr. Josias Mckinney Work Phone: [facility] 09-21-2022 11:40-0500 SaO2% (BldA) [Mass fraction] 99 % Dr. Josias Mckinney Work Phone: [facility] 09-21-2022 11:40-0500 Systolic blood pressure 126 mm[Hg] Dr. Josias Mckinney Work Phone: [facility] 09-21-2022 09:21-0500 Body height 170.[address] Josias Mckinney Work Phone: [facility] 09-21-2022 09:21-0500 Body mass index (BMI) [Ratio] 41.5 kg/m2 Dr. Josias Mckinney Work Phone: [facility] 09-21-2022 09:21-0500 Body weight 120.[address] Josias Mckinney Work Phone: [facility] 09-07-2022 08:47-0500 Body mass index (BMI) [Ratio] 42 kg/m2 Dr. Josias Mckinney Work Phone: [facility] 09-07-2022 08:47-0500 Body weight 121.[address] Josias Mckinney Work Phone: [facility] 11-25-2021 14:27-0400 Body temperature 98.8 [degF] Huber Jolly MD Work Phone: [facility] 11-25-2021 14:27-0400 Diastolic blood pressure 88 mm[Hg] Huber Jolly MD Work Phone: [facility] 11-25-2021 14:27-0400 Heart rate 89 /min Huber Jolly MD Work Phone: [facility] 11-25-2021 14:27-0400 Respiratory rate 17 /min Huber Jolly MD Work Phone: [facility] 11-25-2021 14:27-0400 SaO2% (BldA) [Mass fraction] 98 % Huber Jolly MD Work Phone: [facility] 11-25-2021 14:27-0400 Systolic blood pressure 148 mm[Hg] Huber Jolly MD Work Phone: [facility] 11-08-2021 13:31-0400 Diastolic blood pressure 82 mm[Hg] Dr. Josias Mckinney Work Phone: [facility] Work Phone: 11-08-2021 13:31-0400 Heart rate 99 /min Dr. Josias Mckinney Work Phone: [facility] Work Phone: 11-08-2021 13:31-0400 Respiratory rate 18 /min Dr. Josias Mckinney Work Phone: [facility] Work Phone: 11-08-2021 13:31-0400 SaO2% (BldA) [Mass fraction] 97 % Dr. Josias Mckinney Work Phone: [facility] Work Phone: 11-08-2021 13:31-0400 Systolic blood pressure 161 mm[Hg] Dr. Josias Mckinney Work Phone: [facility] Work Phone: 11-08-2021 13:20-0400 Body height 170.[address] Josias Mckinney Work Phone: [facility] Work Phone: 11-08-2021 13:20-0400 Body mass index (BMI) [Ratio] 41.7 kg/m2 Dr. Josias Mckinney Work Phone: [facility] Work Phone: 11-08-2021 13:20-0400 Body temperature 98.8 [degF] Dr. Josias Mckinney Work Phone: [facility] Work Phone: 11-08-2021 13:20-0400 Body weight 120.[address] Josias Mckinney Work Phone: [facility] Work Phone: 11-03-2021 18:22-0400 Diastolic blood pressure 67 mm[Hg] Dr. Josias Mckinney Work Phone: [facility] Work Phone: 11-03-2021 18:22-0400 Heart rate 71 /min Dr. Josias Mckinney Work Phone: [facility] Work Phone: 11-03-2021 18:22-0400 Respiratory rate 16 /min Dr. Josias Mckinney Work Phone: [facility] Work Phone: 11-03-2021 18:22-0400 SaO2% (BldA) [Mass fraction] 94 % Dr. Josias Mckinney Work Phone: [facility] Work Phone: 11-03-2021 18:22-0400 Systolic blood pressure 138 mm[Hg] Dr. Josias Mckinney Work Phone: [facility] Work Phone: 11-03-2021 16:13-0400 Body height 167.[address] Josias Mckinney Work Phone: [facility] Work Phone: 11-03-2021 16:13-0400 Body mass index (BMI) [Ratio] 41.9 kg/m2 Dr. Josias Mckinney Work Phone: [facility] Work Phone: 11-03-2021 16:13-0400 Body temperature 97 [degF] Dr. Josias Mckinney Work Phone: [facility] Work Phone: 11-03-2021 16:13-0400 Body weight 117.[address] Josias Mckinney Work Phone: [facility] Work Phone: 09-24-2021 07:20-0500 Body mass index (BMI) [Ratio] 42.6 kg/m2 Dr. Josias Mckinney Work Phone: [facility] Work Phone: 09-24-2021 07:20-0500 Body weight 121.[address] Josias Mckinney Work Phone: [facility] Work Phone: Encounters Encounter Date Encounter Type Care Provider Facility Start: 07-02-2025 ambulatory Corinne Mirthakassandrael Facility: [facility] Start: 06-04-2025 ambulatory Saúl Tate NP Facility :[facility] Start: 06-03-2025 End: 06-03-2025 [facility]ulatory [facility] Start: 03-13-2025 Registered Referred [facility]K [facility] Start: 03-13-2025 ambulatory Health Risk Assessment Facility:[facility] Start: 01-23-2025 Non-patient / Non-visit Dr. Carly austin MD -[facility] Work Phone: Start: 12-23-2024 End: 12-23-2024 Patient encounter procedure Rossana Larson [employer] [facility] Work Phone: Start: 12-23-2024 End: 12-23-[address] Corinne Johnson MD Work Phone: [facility] Work Phone: Start: 10-23-2024 End: 10-23-2024 ambulatory Corinne Johnson Facility:[facility] Start: 10-23-2024 Registered Recurring Ronal Buck MD - Physical Therapy Work Phone: Start: 09-25-2024 ambulatory Marquis Crouch Facility :[facility] Start: 08-22-2024 End: 08-25-2024 ambulatory Corinne Bakari Facility:[facility] Start: 08-03-2024 End: 08-03-2024 ambulatory [facility] Facility:[facility] Start: 08-03-2024 End: 08-03-2024 ambulatory Albert FOY Facility:[facility] Start: 06-28-2024 End: 07-25-2024 ambulatory Marquis Crouch Facility:[facility] Start: 06-19-2024 End: 06-19-2024 ambulatory Jennifer Mcclellan Facility:[facility] Start: 10-04-2023 End: 10-04-[address] Corinne Johnson Work Phone: [facility] Work Phone: Start: 10-04-2023 End: 10-04-[address] Corinne Johnson Work Phone: [facility]-Laboratory, Specimen Work Phone: Start: 10-03-2023 End: 10-03-[address] Corinne Johnson Work Phone: [facility] Work Phone: Start: 08-05-2023 End: 08-05-[address] Corinne Johnson Work Phone: [facility] Work Phone: Start: 06-14-2023 End: 06-14-[address] Josias Mckinnye [facility] Work Phone: Start: 06-14-2023 End: 06-14-[address] [facility] Start: 05-19-2023 End: 05-19-[address] [facility] Work Phone: Start: 04-30-[address] [facility] Start: 04-21-2023 End: 04-21-[address] [facility] Start: 04-09-2023 End: 04-09-[address] Matthew Monterroso Work Phone: [facility] Work Phone: Start: 04-09-2023 End: 04-09-[address] Matthew Monterroso Work Phone: [facility]-Sleep Lab Work Phone: Start: 03-18-2023 End: 03-18-[address] Matthew Monterroso Work Phone: [facility] Work Phone: Start: 03-18-2023 End: 03-18-[address] Matthew Monterroso Work Phone: [facility]-Sleep Lab Work Phone: Start: 02-24-2023 End: 02-24-[address] Matthew Monterroso Work Phone: [facility] Work Phone: Start: 02-17-2023 End: 02-17-[address] Matthew Monterroso Work Phone: [facility] Work Phone: Start: 02-10-2023 End: 02-10-[address] Matthew Monterroso Work Phone: [facility] Work Phone: Start: 02-01-2023 End: 02-01-[address] Matthew Monterroso Work Phone: [facility] Work Phone: Start: 12-29-2022 Non-patient / Non-visit Dr. Ruddy Mckinney Work Phone: [facility] Start: 12-29-2022 End: 12-29-2022 Admission to same day surgery center Dr. Josias Mckinney Work Phone: [facility]-Endoscopy Start: 12-29-2022 End: 12-29-[address] Josias Mckinney Work Phone: [facility] Work Phone: Start: 12-04-2022 End: 12-04-[address] Josias Mckinney Work Phone: [facility]-Radiology, [facility] Start: 10-27-2022 Non-patient / Non-visit Dr. Ruddy Mckinney Work Phone: [facility] Start: 10-14-2022 Non-patient / Non-visit Dr. Ruddy Mckinney Work Phone: [facility] Start: 10-14-[address] Josias Mckinney Work Phone: [facility]-Cardiovascula r Services Start: 09-21-2022 End: 09-21-2022 Emergency department patient visit Dr. Josias Mckinney Work Phone: [facility]-Emergency Department Start: 09-07-2022 End: 09-07-[address] Josias Mckinney Work Phone: [facility] Start: 06-09-2022 End: 06-09-[address] Josias Mckinney Work Phone: [facility] Work Phone: Start: 06-09-2022 End: 06-09-[address] Josias Mckinney Work Phone: [facility]-Outpatient Breast Imaging Start: 05-13-2022 End: 05-13-[address] Josias Mckinney Work Phone: [facility] Start: 04-28-[address] Josias Mckinney Work Phone: [facility]Employee [facility] Start: 03-16-2022 End: 03-16-2022 ambulatory [facility] Work Phone: Start: 03-16-2022 End: 03-16-2022 Discharged Recurring [facility]-Physical Therapy Start: 12-12-2021 End: 12-12-[address] Josias Mckinney Work Phone: [facility]-Laboratory, Specimen Start: 11-25-2021 End: 11-25-2021 Emergency department patient visit Huber Jolly MD Work Phone: [facility] Emergency Dept Comment on above: Numbness and tinglin g (Primary Dx); Bowel and bladder incontinence; Chronic bilateral low back pain, unspecified whether sciatica present Start: 11-08-2021 End: 11-08-2021 Emergency department patient visit Dr. Josias Mckinney Work Phone: [facility]-Emergency Department Start: 11-03-2021 End: 11-03-2021 Emergency department patient visit Dr. Josias Mckinney Work Phone: [facility]-Emergency Department Start: 09-24-2021 End: 09-24-[address] Josias Mckinney Work Phone: [facility] Procedures Date Procedure Procedure Detail Performing Clinician Start: 03-13-2025 Serum inorganic phos phate measurement Dr. Corinne Johnson MD Work Phone: Start: 03-13-2025 Urnls dip stick/tabl et reagent auto microscopy Dr. Corinne Johnson MD Work Phone: Start: 10-03-[address] Leta Johnson Work Phone: Start: 08-05-[address] Leta Johnson Work Phone: Start: 06-14-2023 Screening mammography Adelfo Mckinney Start: 05-19-2023 CT of abdomen and pe lvis without contrast Dr. Josias Mckinney Start: 12-29-[address] Josias Mckinney Work Phone: Start: 12-04-2022 X-ray of lumbosacral spine Dr. Josias Mckinney Work Phone: Start: 09-21-2022 CT of chest without contrast Dr. Josias Mckinney Work Phone: Start: 06-09-2022 Screening mammography Adelfo Mckinney Work Phone: Start: 12-12-[address] Josias Mckinney Work Phone: Start: 11-25-2021 Basic metabolic pane l calcium total Huber Jolly MD Work Phone: Start: 11-03-2021 X-ray of lumbar spin e, two or three views Dr. Josias Mciknney Work Phone: Urine culture Plan of Treatment Date Care Activity Detail Author Start: 12-29-2022 Patient discharge [facility] Start: 03-26-2022 Influenza vaccination Flu vacc ine (Season Ended) [facility] Start: 07-21-2017 End: 07-21-2017 Appointment Appointment [facility] Work Phone: Start: 01-06-1980 DTaP/Tdap/Td vaccine (1 - Tdap) DTaP/Tdap/Td vaccine (1 - Tdap) [facility] Start: 1966 COVID-19 Vaccine (1) COVID-19 Vaccin e (1) [facility] Colonoscopy [facility] Patient Education [facility] Work Phone: Patient referral [facility] Work Phone: Immunizations Immunization Date Immunization Notes Care Provider Fa [facility] 06-08-2024 influenza, seasonal, injectable, preservative free Dr. Corinne Johnson MD Work Phone: [facility] 05-31-2023 influenza, injectabl e, quadrivalent, preservative free Dr. Josias Mckinney [facility] 06-10-2022 influenza, injectabl e, quadrivalent, preservative free Dr. Matthew Monterroso Work Phone: [facility] 06-10-2022 influenza, seasonal, injectable Dr. Josias Mckinney Work Phone: [facility] 05-20-2021 influenza, injectabl e, quadrivalent, preservative free Dr. Matthew Monterroso Work Phone: [facility] 05-20-2021 influenza, seasonal, injectable Dr. Josias Mckinney Work Phone: [facility] 08-27-2020 Covid (Moderna) Dr. Josias mora Work Phone: [facility] 07-30-2020 Covid (Moderna) Dr. Josias mora Work Phone: [facility] 06-17-2020 influenza, injectabl e, quadrivalent, preservative free Dr. Matthew Monterroso Work Phone: [facility] 06-17-2020 influenza, seasonal, injectable Dr. Josias Mckinney Work Phone: [facility] 06-28-2019 influenza, injectabl e, quadrivalent, preservative free Dr. Matthew Monterroso Work Phone: [facility] 06-28-2019 influenza, seasonal, injectable Dr. Josias Mckinney Work Phone: [facility] 06-14-2018 influenza, injectabl e, quadrivalent, preservative free Dr. Matthew Monterroso Work Phone: [facility] 06-14-2018 influenza, seasonal, injectable Dr. Josias Mckinney Work Phone: [facility] 05-19-2017 influenza, injectabl e, quadrivalent, preservative free Dr. Matthew Monterroso Work Phone: [facility] 05-19-2017 influenza, seasonal, injectable Dr. Josias Mckinney Work Phone: [facility] 04-23-2016 influenza, injectabl e, quadrivalent, preservative free Dr. Matthew Monterroso Work Phone: [facility] 04-23-2016 influenza, seasonal, injectable Dr. Josias Mckinney Work Phone: [facility] 05-21-2015 influenza, injectabl e, quadrivalent, preservative free Dr. Matthew Monterroso Work Phone: [facility] 05-21-2015 influenza, seasonal, injectable Dr. Josias Mckinney Work Phone: [facility] Payers Date Payer Category Payer Self-pay [id number] 2023 Unknown [id number] 2016 Unknown [id number] Unknown [id number] 2.16.8 [id number] Unknown [id number] 2.16.8 [id number] Unknown [id number] 2.16.8 [id number] Unknown [id number] 2.16.8 [id number] Unknown [id number] 2.16.8 [id number] Unknown [id number] 2.16.8 [id number] Unknown [id number] 2.16.8 [id number] Unknown [id number] 2.16.8 [id number] Unknown [id number] 2.16.8 [id number] Unknown [id number] 2.16.8 [id number] Unknown [id number] 2.16.8 [id number] Unknown [id number] 2.16.8 [id number] Social History Date Type Detail Facility Start: 11-03-2021 End: 10-03-2023 Tobacco smoking status NHIS Unknown if ever smoked [facility] Start: 1960 Sex Assigned At Female [facility] Start: 1960 Sex Assigned At Not on file [employer] Work Phone: Start: 11-15-2021 End: 11-25-2021 Exposure to SARS-CoV-2 (event) Not sure [employer] Work Phone: Start: 08-03-2024 Tobacco smoking status NHIS Ex-smoker (finding) [facility] Sex Female [facility] NEGATED: Highlighted row [facility] Goals Date Patient Goal Desired Activity /State Mental Status Date Assessment Result Facility 12-29-2022 Cognitive function Voice/Name [facility] Work Phone: 09-21-2022 Cognitive function Level Of Cons ciousness Awake;Alert;Appropriate;Follow s Commands [facility] Work Phone: Clinical Notes 04-30-2021 to 12-29-2022 Instructions Note Date & Type Note Facility 12-29-2022 Procedure note [facility] 12-29-2022 Procedure note [facility] 11-25-2021 Hospital Discharg e instructions Mari Loomis [...] the hospital doctors documented in this encounter [employer] Work Phone: 04-30-2021 Note ADDITIONAL PROCEDURES PRESENT Specimen originated from [facility] Specimen #: [id number] Submitting Physician: MIKKI BEJARANO CNM SPECIMEN SUBMITTED A: CERVICAL, SCREENING, FLUID FINAL DIAGNOSIS A. CERVICAL, SCREENING, FLUID Satisfactory for interpretation. Negative for intraepithelial lesion or malignancy. This specimen has been analyzed by the ThinPrep Imaging System, an automated imaging and review system, which assists the laboratory in evaluating cells on ThinPrep Pap tests. Following automated imaging, selected funes from every slide are reviewed by a cold mill inspector. SHERRI Shirley(ASCP) (Electronic Signature) ADDITIONAL PROCEDURE(S) HUMAN PAPILLOMA VIRUS Date Ordered: 05/01/2021 Date Reported: 05/02/2021 Procedure Results and Interpretation Negative for HPV DNA high risk type 16 by PCR. Negative for HPV DNA high risk type 18 by PCR. Negative for HPV DNA high risk types: 31,33,35,39,45,51,52,56,58,59,6 6,68 by PCR. This test was developed and its performance characteristics determined by [facility]'s [facility] [place] ([facility]). It has not been cleared or approved by the FDA. [facility] is regulated under CLIA as qualified to perform high-complexity testing. This test is used for clinical purposes. It should not be regarded as investigational or for research. 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 CLIA Number: [id number] The Pap Smear is a screening test for cervical cancer. False negative results occur with all screening tests, emphasizing the need for rescreening at recommended intervals, and clinical correlation. [facility] 04-30-2021 Note HNO ID: [id number] Author: Mikki Bejarano APRN.CNM Service: ? Author Type: Director Of Trauma Type: Progress Notes Filed: 04/30/2021 11:12 AM [...] external genitalia normal, normal Bartholin's glands, urethra, [place]'s glands, no vulvar lesions, no cervical lesions, physiologic discharge present, normal appearing perineal body and perianal region, stenotic os NEURO: alert and oriented x3,exam grossly non-focal EXTREMITIES: normal ASSESSMENT/PLAN: 1) Health maintenance: Pap done with HPV. Mammogram ordered - Pt to complete at [facility] Colon cancer screening: patient to discuss with PCP TSH/lipids/glucose: followed by PCP Vitamin D: followed by PCP 2) Follow up one year or sooner as needed Mikki Bejarano APRN.CNM [facility] Discharge summary Note Date/Time September 21, 2022 9:59am [facility] Medical Records Department [address] [place] [address] Emergency Department Summary 09/21/22 MR#: [id number] Acct: [id number] Name: JULIETA MENDES Rep #:[id number] : 1960 62 From: Karl Flores MD PCP: Care Physician,No Primary Status :REG ER Location: ED ADDENDUM by Dr. Karl Flores MD on 09/21/22 at 1137 It was written for limited prescription of [place] for pain 10 no refill. 09/21/22 1137<Electronically signed by Karl Flores MD> Cosigner Signature (if applicable): cc: No Primary Care Physician ~* Signed HPI History of Present Illness Chief Complaint: Chest Other Detail of Chief Complaint: Right rib cage pain after a fall Informant: patient Onset/Context/Timing Onset: Days Mechanism/Context: Blunt Injury, Fall and Trip Quality of Pain: Sharp and Stabbing Current Severity: Mild Maximum Severity: Moderate Associated Symptoms Associated Symptoms: Negative for Parasthesias, Weakness, Loss of function, Inability to ambulate, Loss of consciousness or Amnesia Narrative Narrative: 62-year-old female was on a cruise she got up in the middle the night tripped fell into a dresser injuring her right rib cage. Since that time she developed bruising. Pain is increased with movement and deep breathing. Denies shortnessof breath. No hemoptysis. No other injuries. No head injury. No LOC. Prior similar symptoms: No Recent Illness/Hospitalization: No PFSH PFSH Medical History Anxiety Degenerative disc disease, lumbar Depression Fatigue GERD (gastroesophageal reflux disease) Near syncope Obesity Osteoarthritis Premature ventricular beat Supraventricular tachycardia UTI (urinary tract infection) Home Medications naproxen sodium 220 mg capsule (Aleve) 220 mg PO Q12H 07/21/17 [History Last Taken Unknown] paroxetine HCl 20 mg tablet 20 mg PO DAILY 02/02/19 [History Last Taken Unknown] metoprolol succinate 25 mg tablet,extended release 24 hr (Toprol XL) 25 mg PO QDAY #90 tabs 08/09/19 [Rx Last Taken Unknown] omeprazole 20 mg capsule,delayed release 20 mg PO DAILY 03/12/21 [History Last Taken Unknown] Allergy/AdvReac Type Severity Reaction Status Date / Time No Known Allergies Allergy Verified 09/21/22 09:21 Family History Father CAD (coronary artery disease) ischemic cardiomyopathy Surgical History H/O excision of ganglion cyst History of History of dilatation and curettage History of lumbar spinal fusion History of total right knee replacement (~06/2011) Social History Smoking Status: Former smoker alcohol intake: current alcohol intake frequency: holidays/special occasions only ROS ROS ED Review of Systems ROS Unobtainable: Denies due to encephalopathy Constitutional Constitutional ED: Denies chills or fever(s) Eyes Eyes: Denies blurry vision ENT ENT ED: Denies ear pain, rhinorrhea or sore throat Cardiovascular Cardiovascular: Reports chest pain; Denies palpitations or racing heartbeat Respiratory/Chest Respiratory/Chest: Denies cough, dyspnea or dyspnea on exertion Gastrointestinal Gastrointestinal: Denies abdominal pain Genitourinary Genitourinary ED: Denies dysuria or hematuria Musculoskeletal Musculoskeletal: Denies arthralgias, back pain, myalgias or neck pain Integumentary Denies abscess or Abrasions Neurologic Neurologic: Denies headache(s) Psychiatric Psychiatric: Denies anxiety Endocrine Endocrinology: Denies cold intolerance Hematologic/Lymphatic Hematologic/Lymphatic: Denies easy bleeding Allergic/Immunologic Allergic/Immunologic ED: Denies mouth swelling or tongue swelling EXAM Physical Exam Narrative Exam Narrative: 2-year-old female. Vital signs stable afebrile. Pulse ox 90% on room air no hypoxia. H EENT exam unremarkable atraumatic. Given primary light. C-spine nontender. Trachea midline. Back nontender. Spine nontender. Lungs clear to auscultation bilaterally. Heart regular rhythm rate about 80 no murmur. Chest wall right lateral rib cage tenderness with bruising along the area of her bra on the right side. No crepitus. No subcu air. Abdomen soft nontender normal bowel sounds no peritoneal signs. No bruising. No right upper quadrant tenderness. Moving all 4 extremities. Nontender no deformity. Normal range ofmotion. Normal storeperson strength. Normal dorsi plantarflexion. Neurologically sheis awake and alert with no focal motor deficits. Const Vital Signs: 09/21/22 09:21 Temperature 97.8 F Temperature Source Temporal Pulse Rate 84 Respiratory Rate 18 Blood Pressure 135/72 H Blood Pressure Mean 93 Pulse Ox 98 Oxygen Delivery Method Room Air Positive well nourished, well developed and obese; Negative for cachectic, contractures or unkempt General Appearance ED: well developed and NAD; Negative for unkempt, cachectic or contractures Nutritional Appearance: obese; Negative for cachectic HEENT atraumatic; Negative for trauma or tenderness Eyes PERRL and EOMs intact bilaterally Neck full ROM General: Negative for tenderness or other Chest Wall inspection of chest normal; Negative for palpation of chest normal Chest Narrative: Right-sided lateral rib cage tenderness and bruising. No acute area evidence. Resp normal respiratory effort and clear to auscultation bilaterally Auscultation: Negative for rales, rhonchi or wheezes Cardio regular rhythm, S1 normal heart sound, S2 normal heart sound and no murmurs Jugular Venous Distention: Negative for other Palpation: Negative for palpable S3 Rate: regular rate GI normal to inspection, nondistended, normoactive bowel sounds, non-tender, non-distended and no masses Inspection: Negative for abdominal distention Auscultation: normoactive bowel sounds Palpation: soft; Negative for tender or guarding Back/Spine normal to inspection and no thoracic nor lumbar tenderness General Back: Negative for CVA tenderness Thoracic Spine / Upper Back: Negative for thoracic spinal tenderness Extremity normal to inspection and full ROM General Extremety ED: Negative for deformity, edema or tenderness General Extremity: Negative for deformity or edema Neuro oriented x3, CN's II-XII intact bilaterally, moves all extremities, no focal motor deficits and no sensory deficits noted [place] Coma Scale: document GCS findings Spontaneous Obeys Commands Oriented 15 Sensorium / Orientation: alert, oriented to person, oriented to place and oriented to time; Negative for orientation impaired, lethargic or stuporous Motor Exam: strength 5/5 throughout; Negative for strength abnormal Psych mental status grossly normal and thought process normal Appearance: Negative for unkempt Attitude: No agitated Mood & Affect: Negative for depressed, anxious or tearful Skin no rashes or lesions noted, no wounds, skin turgor normal and no jaundice Skin Narrative: Bruising right lateral rib cage. General Skin Exam: Negative for other Rashes: No rashes noted Trauma: Negative for abrasion MDM MDM MDM Narrative Medical decision making narrative: 62-year-old female tripped and fell last hitting a dresser with her right rib cage. Has bruising on her right lateral chest wall. CT is being obtained to evaluate her for possible rib fractures versus pneumothorax or hemothorax. She did not want anything for pain. Repeat exam unchanged. I discussed with the patient her CAT scan results. There were no obvious rib fracture seen. Ice to her rib cage. Pillow to brace the rib cage. Motrin and Tylenol for pain. Radiography Diagnostic Testing: Clinical Impression(s) from Imaging Studies Chest CT 09/21/22 09:52 IMPRESSION: Mild degree of dependent bibasilar atelectasis slightly worse on the right side. No rib fractures seen. Electronically Signed: Cade Wooten MD at 10:47 EST , No acute rib fracture seen by the radiologist. Reviewed by me. Discharge Plan Triage Chief Complaint: Chest Other ED Provider: Karl Flores Dx/Rx/DC Orders Clinical Impression: Fall, Contusion of rib on right side Instructions: ED Bruise, Rib Prescriptions: No Action naproxen sodium [Aleve] 220 mg capsule 220 mg PO Q12H paroxetine HCl 20 mg tablet 20 mg PO DAILY omeprazole 20 mg capsule,delayed release(DR/EC) 20 mg PO DAILY metoprolol succinate [Toprol XL] 25 mg tablet extended release 24 hr 25 mg PO QDAY Qty: 90 3RF Primary Care Provider: Care Physician,No Primary Referrals: Josias Mckinney MD [Non-Staff] - 1 Week if not improving Activity Restrictions/Additional Instructions: Ice to your right rib cage. Tylenol Motrin for pain. Use a pillow to brace your ribs. CAT scan showed no rib fractures. Disposition Disposition: Home, Self Care What to do if you have Problems For any increased pain, shortness of breath, bleeding, nausea or vomiting, chestpain, or any unexpected problems, contact your Primary Care Provider. Call [facility] ([phone]) or report to the closest Emergency Room. Call 911 if necessary. 09/21/22 1127 <Electronically signed by Karl Flores MD> Cosigner Signature (if applicable): CC: No Primary Care Physician ~ Signed [facility] Work Phone: Evaluation note* Diagnosis Onset Date Resolution Status Left knee DJD acute [facility] Work Phone: Evaluation note* Diagnosis Numbness and tingling- Primary Disturbance of skin sensation Bowel and bladder incontinence Chronic bilateral low back pain, unspecified whether sciatica present documented in this encounter [facility] Work Phone: Evaluation noteNo assessment information available [facility] Work Phone: Evaluation note* Diagnosis Onset Date Resolution Status Effusion, left knee acute Osteoarthritis of left knee acute [facility] Work Phone: Evaluation note* Diagnosis Onset Date Resolution Status Osteoarthritis of left knee acute [facility] Work Phone: Evaluation note* Diagnosis Onset Date Resolution Status Osteoarthritis of left knee acute Encounter for screening for malignant neoplasm of colo n acute [facility] Work Phone: Evaluation note* Diagnosis Onset Date Resolution Status Encounter for screening for malignant neoplasm of colo n acute Osteoarthritis of left knee acute Osteoarthritis of left knee acute Osteoarthritis of left knee acute Osteoarthritis of left knee acute [facility] Work Phone: History and physical note Author Matthew Monterroso [facility] December 29, 2022 2:26pm Note Date/Time December 29, 2022 2:26p [facility] Medical Records Department [address] [place] [id number] History & Physical Exam 12/29/22 1424 MR#: [id number] Acct: [id number] Name: JULIETA MENDES Rep #:[id number] : 1960 62 From: Matthew Monterroso DO PCP: Dr. Josias Mckinney MD Status:[facility] Location: [place] [address] HPI - General General Date of Admission: 12/29/22 Date of Service: 12/29/22 Chief Complaint: screening colon HPI Narrative JULIETA MENDES, is a 62 F who presents for for screening colonoscopy. She has not had a colonoscopy in the past. She is not having any chest pain or shortness of breath. She has a history of PVCs ablated this can with medicine. She has no family history of colon cancer or colon polyps overall she is in [facility]. [facility] Medical History Alcohol use Anxiety Arthritis Bladder disease Cardiology follow-up encounter Degenerative disc disease, lumbar Depression Fatigue Former smoker GERD (gastroesophageal reflux disease) History of echocardiogram Hyperlipidemia Leg cramps Migraine headache Near syncope Obesity Osteoarthritis Premature ventricular beat Shortness of breath on exertion Supraventricular tachycardia UTI (urinary tract infection) Wears contact lenses Home Medications naproxen sodium 220 mg capsule (Aleve) 220 mg PO PRN PRN Pain 07/21/17 [History Last Taken Unknown] paroxetine HCl 20 mg tablet 40 mg PO DAILY 02/02/19 [History Last Taken Unknown] metoprolol succinate 25 mg tablet,extended release 24 hr (Toprol XL) 25 mg PO QDAY #90 tabs 08/09/19 [Rx Last Taken Unknown] omeprazole 20 mg capsule,delayed release 20 mg PO DAILY 03/12/21 [History Last Taken Unknown] hydrocodone-acetaminophen 5-325mg 5mg-325mg 1 tab PO Q4H PRN PRN Pain 4 days #10TABLETS 09/21/22 [Rx Last Taken Unknown] cholecalciferol (vitamin D3) 25 mcg (1,000 unit) tablet (Vitamin D3) 25 mcg PO DAILY 12/25/22 [History Last Taken Unknown] vtwtljhpxpys-Oo-rmwq-minerals 18 mg-0.4 mg tablet 1 tab PO DAILY 12/25/22 [History Last Taken Unknown] vitamin B complex 1 cap PO DAILY 12/25/22 [History Last Taken Unknown] Allergy/AdvReac Type Severity Reaction Status Date / Time morphine AdvReac Nausea/Vom/ Verified 12/29/22 13:31 Diarrhea Family History Father CAD (coronary artery disease) ischemic cardiomyopathy Surgical History H/O excision of ganglion cyst History of History of dilatation and curettage History of lumbar spinal fusion History of total right knee replacement (~06/2011) Social History (Updated 10/27/22 @ 08:45 by Leticia Jimenez) household members: spouse current occupational status: employed Smoking Status: Former smoker alcohol intake: current alcohol intake frequency: holidays/special occasions only ROS Review of Systems ROS Unobtainable: other Constitutional Constitutional: Denies fatigue, fever(s), poor appetite, weight gain or weight loss ENT HEENT: Denies mouth lesions Cardiovascular Cardiovascular: Denies abdominal bloating, abdominal edema or abdominal pain Respiratory/Chest Respiratory/Chest: Denies change in mental status, change in phlegm color, chestcongestion or chest tightness Gastrointestinal Gastrointestinal: Denies belching, bloating, change in bowel habits, change in stool character, chewing difficulty, coffee ground emesis, constipation, cramping, diarrhea, dyspepsia, dysphagia, early satiety, excessive flatus, fecalincontinence, heartburn, hematemesis, hematochezia, hemorrhoids, loose stools, melena, nausea, odynophagia, rectal bleeding, tenesmus, vomiting or weight changes Genitourinary Genitourinary: Denies abdominal discomfort, burning urination or itching Musculoskeletal Musculoskeletal: Reports as per HPI; Denies muscle weakness or myalgias Integumentary Integumentary: Denies jaundice Neurologic Neurologic: Denies lack of coordination or weakness Psychiatric Psychiatric: Denies confusion, depression, memory loss, mood swings, paranoia orsuicidal ideation Endocrine Endocrinology: Denies systems reviewed and no addt'l complaints, except as documented Hematologic/Lymphatic Hematologic/Lymphatic: Denies anemia, easy bleeding, easy bruising or lymphadenopathy Allergic/Immunologic Allergic/Immunologic: Denies systems reviewed and no addt'l complaints, except as documented Vital Signs Vital Signs Vital Signs: 12/29/22 13:46 12/29/22 13:46 Temperature 98.1 F Temperature Source Temporal Pulse Rate 92 Respiratory Rate 17 Respiratory Pattern Normal Blood Pressure 147/89 H Blood Pressure Mean 108 Blood Pressure Source Monitor Blood Pressure Position Semi-Fowlers Blood Pressure Location Right Arm Pulse Ox 94 Oxygen Delivery Method Room Air Weight Weight: 266 lb 12.149 oz Body Mass Index (BMI) 41.8 Physical Exam Const alert General Appearance: cooperative Orientation / Consciousness: oriented to person HEENT hearing grossly normal bilaterally Head and Scalp: normal to inspection Face and Sinus: face symmetric Nose: external nose normal Mouth: oral and palatal mucosa normal Eyes conjunctivae normal General Eye: normal appearance of both eyes Neck full ROM General: normal visual inspection Lymph Lymphatic: no lymphadenopathy noted Chest inspection of chest normal and palpation of chest normal Chest: symmetrical chest wall rise Resp normal respiratory effort Effort and Inspection: able to speak in complete sentences Cardio regular rate GI non-distended Percussion: normal to percussion Rectal Exam: deferred Neuro Speech: speech normal Gait (Neuro): normal gait Assessment & Plan Assessment/Plan (1) Encounter for screening for malignant neoplasm of colon: PLAN: She was explained alternatives, risk, benefits include not withstanding bleeding, infection, sepsis, perforation, need for emergent surgery . She will have an ASA of 2. 12/29/22 1426 <Electronically signed by Matthew Monterroso DO> Cosigner Signature (if applicable): CC: Dr. Josias Mckinney MD; Matthew Monterroso, ~ Signed [facility] Work Phone: Hospital Discharge instructions Additional Instructions Ice to your right rib cage. Tylenol Motrin for pain. Use a pillow to brace your ribs. CAT scan showed no rib fractures.[facility] Work Phone: Reason for referral (narrative)No reason for referral information available[facility] Work Phone: Summary Purpose Family History No Family History Records Found Relationship Condition Age at Onset Recorded Date/T angy father Coronary artery disease Unknown Advance Directives No Advanced Directives Records Found Advance Directive Response Recorded Date/ Time Living Will Yes November 03, 2021 4:26pm Power of Departure Clerk Yes November 03 4:26pm Advance Directive Response Recorded Date/ Time Name of Medical Power of Departure Clerk walter mello November 03, 2021 4:26pm Living Will No November 08, 2021 2:04pm Power of Departure Clerk No November 08 2:04pm Advance Directive Response Recorded Date/ Time Living Will No November 08, 2021 2:04pm Power of Departure Clerk No November 08 2:04pm Advance Directive Response Recorded Date/ Time Living Will No November 08, 2021 1:04pm Power of Departure Clerk No November 08 1:04pm Advance Directive Response Recorded Date/ Time Living Will No September 21, 2 023 9:21am Power of Departure Clerk No September 21, 2022 9:21am Advance Directive Response Recorded Date/ Time Living Will No December 25, 2022 9 :38am Power of Departure Clerk No December 25, 2022 9:38am Advance Directive Response Recorded Date/ Time Living Will No December 25, 2022 8 :38am Power of Departure Clerk No December 25, 2022 8:38am Chief Complaint and Reason for Visit Chief Complaint left knee BACK Reason for Visit Left knee DJD Chief Complaint left knee BACK BACK PAIN Reason for Visit Left knee DJD Chief Complaint Arthrodesis status. RX HERE Chief Complaint Arthrodesis status. RX HERE HRA left knee SCREENING Reason for Visit Effusion, left knee Osteoarthritis of left knee Chief Complaint SCREENING LEFT KNEE RIB PAIN Reason for Visit Osteoarthritis of le ft knee Chief Complaint LEFT KNEE RIB PAIN Blood Flow Screening - Romario Amb Documentation Reason for Visit Osteoarthritis of le ft knee Encounter for screening for malignant neoplasm of colon Chief Complaint LEFT KNEE left knee left knee left knee DAYTIME FATIGUE Reason for Visit Encounter for screen ing for malignant neoplasm of colon Osteoarthritis of left knee Osteoarthritis of left knee Osteoarthritis of left knee Osteoarthritis of left knee Chief Complaint LEFT KNEE left knee left knee left knee DAYTIME FATIGUE CLINT Reason for Visit Encounter for screen ing for malignant neoplasm of colon Osteoarthritis of left knee Osteoarthritis of left knee Osteoarthritis of left knee Osteoarthritis of left knee Chief Complaint left knee DAYTIME FATIGUE CLINT CLINT; CPAP *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 [employer] HEMATURIA Encounter for other screening for malignant neopla Reason for Visit Osteoarthritis of le ft knee Chief Complaint Encounter for other screening for malignant neopla Urinary tract infection Urinary tract infection Chief Complaint Admit Date LTK/ TO FAX October 23, 2024 11: 00am R EAR PAIN December 23, 2024 9:21a m Additional Source Comments INFORMATION SOURCE (unrecogn ized section and content) DATE CREATED AUTHOR 08/22/2021 [facility] DATE CREATED AUTHOR AUTHOR'S ORGANIZ ATION 11/27/2021 [employer] [facility] DATE CREATED AUTHOR AUTHOR'S ORGANIZ ATION 11/29/2021 [employer] [facility] DATE CREATED AUTHOR AUTHOR'S ORGANIZ ATION [facility] Goals (unrecognized section and content) Goals may be documented in a n alternate sectionGoals may be documented in an alternate sectionGoals may be documented in an alternate sectionGoals may be documented in an alternate sectionGoals may be documented in an alternate sectionGoals may be documented in an alternate sectionGoals may be documented in an alternate sectionGoals may be documented in an alternate sectionGoals may be documented in an alternate sectionGoals may be documented in an alternate section Reason for Visit (unrecogniz ed section and content) Reason Comments Numbness pt seen at [facility] [address] and had MRI showing spinal stenosis. Now pt is having bilateral leg/groin numbness. States they feel like lightning bolts going down her legs. Care Teams (unrecognized sec tion and content) Team Status: Active Member Role Status Dates Dr. Josias Mckinney MD Family Provider Active No Primary Care Physician Primary Care Provider Active Team Status: Inactive Member Role Status Dates Dr. Josias Mckinney MD Primary Care Provider, Referring Provider Active Dr. Marquis Crouch DO Attending Provider Active Team Status: Inactive Member Role Status Dates Dr. Josias Mckinney MD Primary Care Provider Active Dr. Corinne Johnson MD Attending Provider Active Team Status: Inactive Member Role Status Dates Dr. Karl Flores MD Emergency Provider Active No Primary Care Physician Primary Care Provider Active Team Status: Active Member Role Status Dates Dr. Josias Mckinney MD Family Provider Active Dr. Josias Mckinney MD Primary Care Provider Active Team Status: Active Member Role Status Dates No Primary Care Physician Primary Care Provider Active Dr. Pipo Christy MD Attending Provider Active Team Status: Active Member Role Status Dates No Primary Care Physician Primary Care Provider Active Leticia Jimenez Attending Provider Active Team Status: Active Member Role Status Dates Dr. Matthew Monterroso DO Attending Provid er, Referring Provider, Other Provider Active Dr. Josias Mckinney MD Primary Care Provider Active Team Status: Inactive Member Role Status Dates Dr. Karl Flores MD Attending Provider, Emergency Pro vider Active No Primary Care Physician Primary Care Provider Active Team Status: Active Member Role Status Dates No Primary Care Physician Primary Care Provider Active Dr. Bryant Vásquez MD Attending Provider Active Team Status: Inactive Member Role Status Dates Dr. Matthew Monterroso DO Attending Provider, Referring Provider Active Dr. Josias Mckinney MD Primary Care Provider Active Team Status: Inactive Member Role Status Dates No Primary Care Physician Primary Care Provider Active Dr. John Newman DO Attending Provider, Referring P rovider Active Team Status: Inactive Member Role Status Dates Dr. Josias Mckinney MD Primary Care Provider Active Dr. Corinne Johnson MD Attending Provider, Referring P rovider Active Team Status: Active Member Role Status Dates Dr. Josias Mckinney MD Family Provider Active Dr. Corinne Johnson MD Primary Care Provider Active Team Status: Active Member Role Status Dates Dr. Corinne Johnson MD Primary Care Provider Active Health Risk Assessment Attending Provider, Referring P rovider Active Team Status: Inactive Member Role Status Dates Dr. Corinne Johnson MD Primary Care Prov ider, Attending Provider, Referring Provider Active Team Status: Inactive Member Role Status Dates Dr. Corinne Johnson MD Primary Care Provider, Referrin g Provider Active Albert FOY PA Attending Provider Active Team Status: Inactive Member Role Status Dates Dr. Corinne Johnson MD Primary Care Provider, Referrin g Provider Active Jennifer FOY PA Attending Provider Active Team Status: Inactive Member Role Status Dates Dr. Corinne Johnson MD Primary Care Provider Active Albert FOY PA Attending Provider Active Team Status: Inactive Member Role Status Dates Dr. Corinne Johnson MD Primary Care Provider Active Jennifer FOY PA Attending Provider, Referr ing Provider Active Team Status: Active Member Role Status Dates Dr. Corinne Johnson MD Primary Care Provider Active Start: October 23, 2024 Dr. Ronal Buck MD Attending Provider Active St art: October 23, 2024 Dr. Ronal Buck MD Referring Provider Active St art: October 23, 2024 Team Status: Inactive Member Role Status Dates Dr. Corinne Johnson MD Primary Care Provider Active Start: December 23, 2024 End: December 23, 2024 Dr. Corinne Johnson MD Referring Provider Active Start: December 23, 2024 End: December 23, 2024 RONALD Sanches Attending Provider Active Start: December 23, 2024 End: December 23, 2024 Team Status: Active Member Role/Relationship Status Dates Dr. Josias Mckinney MD Primary care physician Active Dr. Corinne Johnson MD Primary care physician Active Team Status: Inactive Member Role/Relationship Status Dates Dr. Corinne Johnson MD Primary care physician Active Start: January 23, 2025 Dr. Carly Chun MD Attending physician Active Start: January 23, 2025 Team Status: Active Member Role/Relationship Status Dates Dr. Corinne Johnson MD Primary care physician Active Start: March 13, 2025 Health Risk Assessment Attending physician Active Start: March 13, 2025 FOR RECORDS PERTAINING TO PATIENTS WHO ARE [...] BE BASED ON THE PRIMARY CLINICAL RECORDS. [employer] [facility]. provides no warranty or guarantee of the accuracy or completeness of information in this document.
== END | disposition home or self-care (01) ==
LOC: MTRAD 15:46
PROVIDERS: PCP Family Medicine; Referring Provider Physician Assistant Surgical; Visit Provider Physician Assistant Surgical
DX: S99.912A Unspecified injury of left ankle, initial encounter (principal); X58.XXXA Exposure to other specified factors, initial encounter
CPT/HCPCS: 73610

== ENCOUNTER → 2025-07-02 | Outpatient (CLI) | payer OTHER, SELFPAY ==
--- NOTE | 2025-07-02 08:05 | BI_ITS ---
EXAM: SCRN MAMM (CAD)W/WU BILAT DATE: 07/02/2025 CLINICAL HISTORY: F, Age 65 y/o , SCREENING TECHNIQUE: Procedure Code: [id number] Modality: MG Procedure: SCRN MAMM (CAD)W/WU BILAT COMPARISON: Prior exam(s) dated 06/19/2024, 06/14/2023, and 06/09/2022. FINDINGS: TISSUE DENSITY: Fibroglandular Bilateral Breast Mammographic Findings: Stable nodular masslike densities are seen in both breasts. Benign round calcifications are seen in both breasts. No suspicious masses, suspicious clustered microcalcifications, architectural distortion or secondary signs of malignancy is identified in either breast. Benign-appearing vascular type calcifications are seen in the right breast. BI/SCRN MAMM (CAD)W/WU BILAT IMPRESSION: Benign screening mammogram OVERALL FINAL ASSESSMENT BI-RADS 2: BENIGN RECOMMENDATION: Routine annual follow-up in 1 Year Additional Recommendation none A letter with findings and recommendations will be mailed to the patient. Reading Location: [id number]
== END | disposition home or self-care (01) ==
LOC: OPBI 08:04
PROVIDERS: PCP Family Medicine; Referring Provider Family Medicine; Visit Provider Family Medicine
DX: Z12.31 Encounter for screening mammogram for malignant neoplasm of breast (principal)
CPT/HCPCS: 77063; 77067